=== PATIENT | male | born 1945 | race Caucasian/White ===

== ENCOUNTER → 2016-10-26 | Outpatient (CLI) | payer MEDICARE ==
[~2016-10-26] MED LIST: ALLO300T2 PO; AMIO200T2 PO; COD1CAPS6 PO; DICL100G18 TP; DLT180CCR; DOXA4TAB2 PO; DOXA8TAB2 PO; FLUT16SP22 NS; FLUTICASONE; INSU100I10 SC; INSU100I23; INSU100V16 SQ; INSU100V6 SQ; LEVO5TAB12 PO; LISI10TA2 PO; LORA10TA7 PO; NF-SOLIF5T PO; OMEG1CAP24 PO; RIVA20TA PO; TEST200V21 INJ; TRZ50T; WRF10T; WRF1T; ZOLP10TA5 PO; [UNRECOGNIZED DRUG - OTHER] PO; [UNRECOGNIZED DRUG - SUPPLY]
--- OUTSIDE RECORDS SUMMARY | 2016-10-26 10:57 | XMS REPORT | Continuity of Care Document ---
Author Author [facility] Organization [facility] Address Unknown Phone Unavailable Care Team Providers Care Redye Hand Name Role Phone MAURICE SCHROEDER DO PCP Insurance Providers Payer Name Policy Number Subscriber Name Relationship Wps Medicare [id number] Maurice Roberts Ii 18 Self / Same As Patient [employer] [facility] Supp [id number] Maurice Roberts Ii 18 Self / Same As Patient Advance Directives Directive Response Recorded Date/Time Advance Directives Yes 07/26/16 12:42pm Health Care Power of Quality Control Coordinator Yes 07/26/16 12:42pm Organ Donor Yes 07/26/16 12:42pm Resuscitation Status Full Code 07/26/16 12:42pm Chief Complaint and Reason for Visit Chief Complaint AFIB Reason for Visit Intermittent atrial fibrillation Problems Active Problems Medical Problem Onset Date Status Intermittent atrial fibrillation Unknown Acute Medications Current Home Medications Medication Dose Units Route Directions Days/Qty Instructions Start Date Lisinopril 10 Mg 10 Mg Oral Daily 12/16/15 Solifenacin Succinate 5 Mg 5 Mg Oral Daily 12/16/15 Zolpidem Tartrate 10 Mg 10 Mg Oral Bedtime 12/16/15 Allopurinol 300 Mg 300 Mg Oral Daily 12/16/15 Levocetirizine Dihydrochloride 5 Mg 5 Mg Oral Daily 07/26/16 Doxazosin Mesylate 8 Mg 8 Mg Oral Bedtime 07/26/16 Insulin Glargine,Hum.rec.anlog 100 Unit/1 Ml 20 Units Subcutaneously Twice A Day 07/26/16 Amiodarone Hcl 200 Mg 200 Mg Oral Twice A Day as needed for Afib 06/02 Diclofenac Sodium 100 Gm Topical Twice A Day as needed for Pain 07/26/16 Rivaroxaban 20 Mg 20 Mg Oral Daily 07/26/16 Insulin Lispro 100 Unit/1 Ml Sliding/Scale as needed for Blood Sugar 07/26/16 [E-Poise] 1 Tab Oral Daily 07/26/16 Cod Liver Oil 1 Each 1 Cap Oral Twice A Day 07/26/16 Fluticasone Propionate 16 Gm 1 [place] Nasal Twice A Day as needed for Congestion 07/26/16 Testosterone Cypionate 200 Mg/1 Ml 1 Ml Injection Every 2 Weeks 06/02 Past Home Medications Medication Directions Ordered Status Warfarin Sodium 10 Mg Tablet, 06/22/08 Discontinued Warfarin Sodium 1 Mg Tablet, 06/22/08 Discontinued Diltiazem Hcl 180 Mg Cap, 06/22/08 Discontinued Trazodone Hcl 50 Mg Tab, 06/22/08 Discontinued Loratadine 10 Mg Tablet, 10 Mg Oral 12/16/15 Discontinued Doxazosin Mesylate 4 Mg Tablet, 4 Mg Oral 12/16/15 Discontinued Insulin Aspart 100 Unit/1 Ml Susp, 1000 Unit Sub-Q 12/16/15 Discontinued Insulin Glargine,Hum.rec.anlog 100 Unit/1 Ml Vial, 100 Unit Sub-Q 12/16/15 Discontinued [Fluticasore] , 12/16/15 Discontinued [place]-3 Fatty Acids/Fish Oil 1 Each Capsule., 1 Each Oral 12/16/15 Discontinued [E-Poise] , 12/16/15 Discontinued Social History Social History Problem Response Recorded Date/Time Alcohol Use Denies Use 12/16/2015 6:38am Recreational Drug Use No 12/16/2015 6:38am Recent Foreign Travel No 07/26/2016 12:47pm Recent Infectious Disease Exposure No 07/26/2016 12:47pm Sexually Transmitted Disease No 07/26/2016 12:44pm Smoking Status Never a Smoker 07/26/2016 12:47pm Recent Hopitalizations No 07/26/2016 12:44pm Sexually Transmitted Disease No 07/26/2016 12:44pm Hx Sexually Transmitted Disorders No 06/22/2008 2:00pm Query Response Start Date Stop Date Smoking Status Never a Smoker Hospital Discharge Instructions No hospital discharge instructions. Plan of Care Discharge Date 07/27/16 10:30am Disposition 01 HOME, SELF-CARE Instructions/Education Provided Atrial Fibrillation (DC) Prescriptions See Medication Section Functional Status Query Response Date Recorded Patient Orientation Person Place Time Situation July 27, 2016 11:09am Comprehension Ability Understands Concepts July 27, 2016 10:30am Allergies, Adverse Reactions, Alerts No known allergies. Immunizations Name Given Type FLU TRIvalent 5 years - Adult 07/26/16 Administered Vital Signs Acute Vital Signs Vital Response Date/Time Temperature (Fahrenheit) 95.0 degrees F (97.6 - 99.5) 07/27/2016 8:00am Temperature (Calculated Celsius) 35.81372 degrees C (36.4 - 37.5) 07/27/2016 8:00am Temperature Source Tympanic 07/27/2016 8:00am Pulse Rate (adult) 50 bpm (60 - 90) 07/27/2016 10:00am Respiratory Rate 20 bpm (12 - 24) 07/27/2016 10:00am O2 Sat by Pulse Oximetry 95 % (88 - 100) 07/27/2016 10:00am Blood Pressure 106/51 mm Hg 07/27/2016 10:00am Blood Pressure Mean 69 mm Hg 07/27/2016 10:00am Pain Numeric Pain Scale 0-No Pain 07/27/2016 10:00am Height (Feet) 5 feet 07/26/2016 12:46pm Height (Inches) 10.00 inches 07/26/2016 12:46pm Height (Calculated Centimeters) 177.234769 cm 07/26/2016 12:46pm Weight (Pounds) 230 pounds 07/27/2016 6:00am Weight (Ounces) 0.0 oz 07/26/2016 12:46pm Weight (Calculated Grams) 325221.246 gm 07/27/2016 6:00am Weight (Calculated Kilograms) 104.422393 kilograms 07/27/2016 6:00am Calculated BMI 33.0 07/26/2016 12:46pm Results Laboratory Results Test Name Result Units Flags Reference Collection Date/Time Result Date/ Time Comments White Blood Count 5.9 10^3/uL 4.3-11.0 07/26/2016 12:56pm 07/26/2016 1: 08pm Red Blood Count 4.52 10^6/uL 4.35-5.85 07/26/2016 12:56pm 07/26/2016 1: 08pm Hemoglobin 15.3 G/DL 13.3-17.7 07/26/2016 12:56pm 07/26/2016 1:08pm Hematocrit 43 % 40-54 07/26/2016 12:56pm 07/26/2016 1:08pm Mean Corpuscular Volume 96 FL 80-99 07/26/2016 12:56pm 07/26/2016 1: 08pm Mean Corpuscular Hemoglobin 34 PG 25-34 07/26/2016 12:56pm 07/26/2016 1 :08pm Mean Corpuscular Hemoglobin Concent 35 G/DL 32-36 07/26/2016 12:56pm 1:08pm Red Cell Distribution Width 14.4 % 10.0-14.5 07/26/2016 12:56pm 2015 1:08pm Platelet Count 102 10^3/uL L 130-400 07/26/2016 12:56pm 07/26/2016 1: 08pm Mean Platelet Volume 10.6 FL H 7.4-10.4 07/26/2016 12:56pm 07/26/2016 1: 08pm Prothrombin Time 23.1 SEC H 12.2-14.7 07/26/2016 12:56pm 07/26/2016 1: 22pm INR Comment 2.1 H 0.8-1.4 07/26/2016 12:56pm 07/26/2016 1:22pm INTERPRETIVE DATA SUGGESTED THERAPEUTIC RANGE FOR INR'S: VENOUS THROMBOSIS, PULMONARY EMBOLISM, OR PREVENTION OF SYSTEMIC EMBOLISM (EG. IN ATRIAL FIBRILLATION): 2.0 - 3.0 MECHANICAL PROSTHETIC HEART VALVES: 2.5 - 3.5* *NOTE: INR'S UP TO 4.5 MAY BE NECESSARY IN SELECTED GROUPS OF HIGH RISK PATIENTS. [employer] CONSENSUS CONFERENCE ON ANTITHROMBOTIC THERAPY (2000). Activated Partial Thromboplast Time 40 SEC H 24-35 07/26/2016 12:56pm 05/2016 1:22pm Sodium Level 140 MMOL/L 135-145 07/26/2016 12:56pm 07/26/2016 1:32pm Potassium Level 4.1 MMOL/L 3.6-5.0 07/26/2016 12:56pm 07/26/2016 1: 32pm Chloride Level 109 MMOL/L H 98-107 07/26/2016 12:56pm 07/26/2016 1:32pm Carbon Dioxide Level 25 MMOL/L 21-32 07/26/2016 12:56pm 07/26/2016 1: 32pm Anion Gap 6 MMOL/L 5-14 07/26/2016 12:56pm 07/26/2016 1:32pm Blood Urea Nitrogen 21 MG/DL H 7-18 07/26/2016 12:56pm 07/26/2016 1:32pm Creatinine 1.16 MG/DL 0.60-1.30 07/26/2016 12:56pm 07/26/2016 1:32pm BUN/Creatinine Ratio 18 07/26/2016 12:56pm 07/26/2016 1:32pm Estimat Glomerular Filtration Rate > 60 07/26/2016 12:56pm 2015 1:32pm GFR INTERPRETIVE DATA UNITS FOR ESTIMATED GFR (eGFR): mL/min/1.73 M2 REFERENCE RANGE FOR ESTIMATED GFR (eGFR) eGFR NORMAL eGFR >60 MODERATELY DECREASED eGFR 30-59 SEVERLY DECREASED eGFR 15-29 KIDNEY FAILURE <15 (OR DIALYSIS) Glucose Level 110 MG/DL H 70-105 07/26/2016 12:56pm 07/26/2016 1:32pm Glucometer 108 MG/DL 70-110 07/27/2016 6:41am 07/27/2016 6:52am Calcium Level 8.6 MG/DL 8.5-10.1 07/26/2016 12:56pm 07/26/2016 1:32pm Total Bilirubin 0.5 MG/DL 0.1-1.0 07/26/2016 12:56pm 07/26/2016 1:32pm Alkaline Phosphatase 72 U/L 40-136 07/26/2016 12:56pm 07/26/2016 1: 32pm Aspartate Amino Transf (AST/SGOT) 19 U/L 5-34 07/26/2016 12:56pm 2015 1:32pm Alanine Aminotransferase (ALT/SGPT) 26 U/L 0-55 07/26/2016 12:56pm 05/2016 1:32pm Total Protein 6.2 G/DL L 6.4-8.2 07/26/2016 12:56pm 07/26/2016 1:32pm Albumin 3.7 G/DL 3.2-4.5 07/26/2016 12:56pm 07/26/2016 1:32pm Procedures Procedure Status Date Provider(s) Tracing only of electrocardiogram Active 07/27/16 GALLO BEST MD Encounters Encounter Location Arrival/Admit Date Discharge/Depart Date Attending Provider Discharged Inpatient [facility] 07/26/16 11:48am 10:30am GALLO BEST MD Recent Diagnosis Intermittent atrial fibrillation
--- NOTE | 2016-10-26 15:00 | Diagnostic Imaging Report ---
INDICATION: Coughing and wheezing. COMPARISON: Exam compared to 08/14/2008. FINDINGS: Heart size is stable. No overt vascular congestion. There is some thickening of the central airways and perihilar bronchial cuffing, which can be seen in reactive airway disease. No alveolar consolidation or gabe pneumonia, however. IMPRESSION: Perihilar airway thickening compatible with reactive airway disease, but no alveolar consolidation, effusion, or pneumothorax. Dictated by: Dictated on workstation # [id number]
== END ==
LOC: RAD 10:52
PROVIDERS: ATTEND Internal Medicine
DX: J18.9 Pneumonia, unspecified organism (principal)
CPT/HCPCS: 71020

== ENCOUNTER → 2017-03-23 | Day surgery (SDC) | payer MEDICARE ==
[2017-03-23] VITALS (7 sets, daily range): BP systolic 113–147; BP diastolic 63–90
[~2017-03-23] VITALS: Ht 177.8 cm; Wt 104.3 kg
[~2017-03-23] MED LIST changes: +AMLO10TA4 PO; +FEXO180T84 PO; +FURO-125 PO; +LIDOCAINE 2% VISCOUS 15 ML UDC ONE; +LOSA1TAB23 PO; +MIDAZOLAM 5 MG/5 ML (VERSED) VIAL ONE; +NS IV 1000 ML 1,000 ML IV SCH; +NS IV 1000 ML 1,000 ML ONE; +POTA10TA10 PO; +proPOfol 200 MG/20 ML (DIPRIVAN) VIAL IV ONE
[2017-03-23 09:02] LABS: MEAN PLATELET VOLUME 11.2 FL (7.4-10.4); RED BLOOD COUNT 4.92 10^6/uL (4.35-5.85); RED CELL DISTRIBUTION WIDTH 14.4 % (10.0-14.5); WHITE BLOOD COUNT 5.5 10^3/uL (4.3-11.0)
[2017-03-23 09:14] LABS: INR 1.4 (0.8-1.4); PROTHROMBIN TIME PATIENT 16.4 SEC (12.2-14.7)
--- NOTE | 2017-03-23 09:15 | Diagnostic Imaging Report ---
INDICATION: Atrial fibrillation and hypertension Frontal chest obtained at 9:03 AM and compared to 10/26/16. Heart is borderline in size. There is mild central vascular prominence. There is no acute infiltrate or pneumothorax or pleural fluid. IMPRESSION: Borderline heart size with mild central vascular prominence. No acute change compared with 10/26/16. Dictated by: Dictated on workstation # [id number]
[2017-03-23 09:24] LABS: ALBUMIN 3.7 GM/DL (3.2-4.5); BILIRUBIN,TOTAL 0.9 MG/DL (0.1-1.0); CALCIUM 9.3 MG/DL (8.5-10.1); CREATININE SERUM 1.2 MG/DL (0.60-1.30); TOTAL PROTEIN 6.8 GM/DL (6.4-8.2)
--- NOTE | 2017-03-23 09:26 | Cardiac Procedure Note-CS/ASA ---
Pre-Procedure Note Pre-Op Procedure Note H&P Reviewed The H&P was reviewed, patient examined and no changes noted. Date H&P Reviewed: Mar 23, 2017 Time H&P Reviewed: : Conscious Sedation Pre-Proced Time Reviewed: ASA Class: 3 Airway Mallampati Classification: ([place] appropriate class) I. II. III, IV Lungs Heart ASA score ASA 1: a normal healthy patient ASA 2: a patient with a mild systemic disease (mid diabetes, controlled hypertension, obesity x ASA 3: a patient with a severe systemic disease that limits activity (angina , COPD, prior Myocardial infarction) ASA 4: a patient with an incapacitating disease that is a constant threat to life (CHF, renal failure) ASA 5: a moribund patient not expected to survive 24 hrs. (ruptured aneurysm) ASA 6: a declared brain patient whose organs are being harvested. For emergent operations, add the letter E after the classification Grade 3 Sedation Plan: Analgesia, Amnesia, Plan communicated to team members, Discussed options with patient/fam, Discussed risks with patient/fam Note The patient is an appropriate candidate to undergo the planned procedure, sedation, and anesthesia. The patient immediately re-assessed prior to indication. GALLO BEST MD Mar 23, 2017 09:26
--- NOTE | 2017-03-23 10:15 | Cardiology Post Procedure Note ---
Post-Procedure Note Physician (s)/Director Regulatory Compliance (s) Physician GALLO BEST MD Pre-Procedure Diagnosis Pre-Procedure Diagnosis: a fib Post-Procedure Note Procedure Start Date: Mar 23, 2017 Procedure Start Time: 10:00 Name of Procedure: Electrical cardioversion Findings/Procedure Note BRIEF HISTORY: The patient is a 71 male with paroxysmal A fib/ flutter, started having atrial flutter 2 days ago, didn't respond to increasing Amiodarone, I decided to proceed with cardioversion . PROCEDURE NOTE: After explaining the procedure to the patient, all pros and cons were explained. The patient was sedated with assistance of anesthesia, DC cardioversion was delivered with success. IN CONCLUSION: Successful electrical cardioversion without complications. Anesthesia Type: Conscious Sedation Estimated blood loss (mL): 0 Contrast Amount: 0 Post-Procedure Diagnosis Post-operative diagnosis: Atrial fibrillation/ Flutter GALLO BEST MD Mar 23, 2017 10:15 am
--- NOTE | 2017-03-23 10:16 | Clinic Account Progress/Dx ---
Clinic Account Progress/Dx DIAGNOSIS: Date Seen by Provider: Mar 23, 2017 Time Seen by Provider: 10:15 Diagnosis Atrial Flutter GALLO BEST MD Mar 23, 2017 10:16 am
--- NOTE | 2017-03-23 10:56 | Anesthesia-Procedure Note ---
Procedure Start/Stop Time Date of Procedure: Mar 23, 2017 Start Time: 09:52 Brief History 03/23/2017 [id number]: To [employer] to assist with sedation for cardioversion. Patient denies allergies to meds. O2 4L/NC. Propofol 80mg total given prior to procedure. Tolerated well. Reported off to Vonnie Stevens RN. Stop Time: 10:04 USMAN MCCORMICK CRNA Mar 23, 2017 10:55
--- OUTSIDE RECORDS SUMMARY | 2017-03-27 06:44 | XMS REPORT | Continuity of Care Document ---
Author Author [facility] Organization [facility] Address Unknown Phone Unavailable Care Team Providers Care [employer] Name Role Phone Unverified, Unverified PCP Unavailable Source Comments Some departments are not documenting in the electronic medical record. If you do not see the information that you expected, contact Release of Information in the Health Information Management department at [phone] for further assistance in locating additional records.[facility] Active Allergies and Adverse Reactions Allergen Noted Date Severity Reactions Comments Metoprolol 02/29/2008 Current Medications Prescription Sig. Disp. Refills Start End Date Status Date COUMADIN PO Take by mouth. Suspended FISH OIL 1,000 mg Cap Take by mouth Daily. Suspended flecainide (TAMBOCOR) 100 Take 1 Tab by mouth Twice 60 0 02/29/20 Suspended mg tablet Daily. 08 Active Problems Problem Noted Date AF (atrial fibrillation) ([facility]) 02/28/2008 Diabetes ([facility]) 02/28/2008 Social History Tobacco Use Types Packs/Day Years Used Date Never Smoker Alcohol Use Drinks/Week oz/Week Comments No Last Filed Vital Signs Vital Sign Reading Time Taken Blood Pressure 86/53 02/29/2008 8:47 AM CDT Pulse 71 02/29/2008 7:00 AM CDT Temperature 37 C (98.6 F) 02/29/2008 4:00 AM CDT Respiratory Rate - - Height - - Weight - - Body Mass Index - - Oxygen Saturation 98% 02/29/2008 7:00 AM CDT Plan of Care Health Maintenance Due Date Last Done Comments Physical (Comprehensive) 1951 Exam Pertussis Vaccine 1955 Tetanus Vaccine 1961 Dilated Eye Exam 1962 Foot Exam 1962 Hba1c 1962 Microalbumin 1962 Colorectal Cancer 1994 Screening Shingles Vaccine 2004 Prevnar/Pneumovax (#1) 2009 Influenza Vaccine 05/18/2017 Results from Last 3 Months Not on file
--- OUTSIDE RECORDS SUMMARY | 2017-03-27 06:44 | XMS REPORT | Referral Summary ---
Author Author [facility] Organization [facility] Address Unknown Phone Unavailable Encounter [facility] [id number] Date(s): 02/16/15 - 02/16/15 [facility] [address] [place], [place] [address] Discharge Disposition: 01-Home or Self Care Attending Physician: Nick Apodaca MD Admitting Physician: Nick Apodaca MD Vital Signs No data available for this section Problem List No data available for this section Allergies, Adverse Reactions, Alerts No data available for this section Medications No data available for this section Results No data available for this section Immunizations No data available for this section Procedures No data available for this section Social History No data available for this section Assessment and Plan No data available for this section
--- OUTSIDE RECORDS SUMMARY | 2017-03-27 06:44 | XMS REPORT | Continuity of Care Document ---
Demographics Preferred Language Unknown Marital Status Unknown Worship Affiliation Unknown Race Unknown Ethnic Group Unknown Author Author [facility] Organization [facility] & Address Unknown Phone Unavailable Allergies Active Description Code Type Severity Reaction Onset Reported/Identified Relationship to Patient Clinical Status Yes No Known Drug Allergies [id number] Drug Allergy Unknown N/ A 12/24/2007 Medications Problems Date Dx Coded Attending Type Code Diagnosis Diagnosed By 06/12/2009 Ot 427.31 06/12/2009 Ot V72.81 06/12/2009 Ot V72.83 06/12/2009 Ot V74.8 2014 Ot 427.31 2014 Ot 785.0 2014 Ot 427.31 2014 Ot 785.1 09/16/2014 GALLO BEST MD Ot 250.00 09/16/2014 GALLO BEST MD Ot 397.0 09/16/2014 GALLO BEST MD Ot 416.8 09/16/2014 GALLO BEST MD Ot 427.31 09/16/2014 GALLO BEST MD Ot 427.32 09/16/2014 GALLO BEST MD Ot 785.1 09/16/2014 GALLO BEST MD Ot V58.67 09/16/2014 GALLO BEST MD Ot V58.69 01/19/2015 GALLO BEST MD Ot 426.52 01/19/2015 GALLO BEST MD Ot 427.31 01/19/2015 GALLO BEST MD Ot 785.1 02/05/2015 GALLO BEST MD Ot 426.52 02/05/2015 GALLO BEST MD Ot 427.31 02/05/2015 GALLO BEST MD Ot 785.1 02/25/2015 GALLO BEST MD Ot 278.00 02/25/2015 GALLO BEST MD Ot 397.0 02/25/2015 GALLO BEST MD Ot 426.82 02/25/2015 GALLO BEST MD Ot 427.31 02/25/2015 GALLO BEST MD J Ot 785.1 02/25/2015 ESTEPHANIA QUEZADA, GALLO Adair Ot V58.67 02/25/2015 ESTEPHANIA QUEZADA, GALLO Adair Ot V58.69 02/25/2015 ESTEPHANIA QUEZADA, GALLO Adair Ot V64.3 02/25/2015 ESTEPHANIA QUEZADA, GALLO Adair Ot V85.32 03/09/2015 ESTEPHANIA QUEZADA, GALLO Adair Ot 278.00 03/09/2015 ESTEPHANIA QUEZADA, GALLO Adair Ot 397.0 03/09/2015 ESTEPHANIA QUEZADA, GALLO Adair Ot 426.82 03/09/2015 ESTEPHANIA QUEZADA, GALLO Adair Ot 427.31 03/09/2015 ESTEPHANIA QUEZADA, GALLO Adair Ot 785.1 03/09/2015 ESTEPHANIA QUEZADA, GALLO Adair Ot V58.67 03/09/2015 ESTEPHANIA QUEZADA, GALLO Adair Ot V58.69 03/09/2015 ESTEPHANIA QUEZADA, GALLO Adair Ot V64.3 03/09/2015 ESTEPHANIA QUEZADA, GALLO Adair Ot V85.32 03/09/2015 ESTEPHANIA QUEZADA, GALLO Adair Ot 278.00 03/09/2015 ESTEPHANIA QUEZADA, GALLO Adair Ot 397.0 03/09/2015 ESTEPHANIA QUEZADA, GALLO Adair Ot 426.82 03/09/2015 ESTEPHANIA QUEZADA, GALLO Adair Ot 427.31 03/09/2015 ESTEPHANIA QUEZADA, GALLO Adair Ot 785.1 03/09/2015 ESTEPHANIA QUEZADA, GALLO Adair Ot V58.67 03/09/2015 ESTEPHANIA QUEZADA, GALLO Adair Ot V58.69 03/09/2015 ESTEPHANIA QUEZADA, GALLO Adair Ot V64.3 03/09/2015 ESTEPHANIA QUEZADA, GALLO Adair Ot V85.32 05/18/2015 MAURICE SCHROEDER DO Ot 721.0 05/18/2015 MAURICE SCHROEDER DO Ot 721.2 05/18/2015 MAURICE SCHROEDER DO Ot V45.4 05/27/2015 MAURICE SCHROEDER DO Ot 721.0 05/27/2015 MAURICE SCHROEDER DO Ot 721.2 05/27/2015 MAURICE SCHROEDER DO Ot V45.4 06/23/2015 GALLO BEST MD Ot 426.82 06/23/2015 GALLO BEST MD Ot 427.31 06/23/2015 GALLO BEST MD Ot 785.1 07/05/2015 GALLO BEST MD Ot 426.82 07/05/2015 GALLO BEST MD Ot 427.31 07/05/2015 GALLO BEST MD Ot 785.1 12/16/2015 ANTHONY SALVADOR MD Ot E11.9 TYPE 2 DIABETES MELLITUS WITHOUT COMPLIC 12/16/2015 ANTHONY SALVADOR MD Ot I48.91 UNSPECIFIED ATRIAL FIBRILLATION 12/16/2015 ANTHONY SALVADOR MD Ot Z79.4 BUSINESS ANALYSIS CONSULTANT (CURRENT) USE OF INSULIN 07/26/2016 GALLO BEST MD Ot 250.00 DIAB AYLA WO COMPL, TYPE II OR UNSPEC TY 07/26/2016 GALLO BEST MD Ot 397.0 TRICUSPID VALVE DISEASE 07/26/2016 GALLO BEST MD Ot 416.8 [facility] PULMON HEART DIS NEC 07/26/2016 GALLO BEST MD Ot 427.31 ATRIAL FIBRILLATION 07/26/2016 GALLO BEST MD Ot 427.32 ATRIAL FLUTTER 07/26/2016 GALLO BEST MD Ot 785.1 PALPITATIONS 07/26/2016 GALLO BEST MD Ot V58.67 LONG-TERM (CURRENT) USE OF INSULIN 07/26/2016 GALLO BEST MD Ot V58.69 OTH MED,LT,CURRENT USE 07/26/2016 GALLO BEST MD Ot 426.52 RT BBB/LFT ANT FASC BLK 07/26/2016 GALLO BEST MD Ot 427.31 ATRIAL FIBRILLATION 07/26/2016 GALLO BEST MD Ot 785.1 PALPITATIONS 07/26/2016 GALLO BEST MD Ot 278.00 OBESITY, NOS 07/26/2016 GALLO BEST MD Ot 397.0 TRICUSPID VALVE DISEASE 07/26/2016 GALLO BEST MD Ot 426.82 LONG QT SYNDROME 07/26/2016 GALLO BEST MD Ot 427.31 ATRIAL FIBRILLATION 07/26/2016 GALLO BEST MD Ot 785.1 PALPITATIONS 07/26/2016 GALLO BEST MD Ot V58.67 LONG-TERM (CURRENT) USE OF INSULIN 07/26/2016 GALLO BEST MD Ot V58.69 OTH MED,LT,CURRENT USE 07/26/2016 GALLO BEST MD Ot V64.3 NO PROC FOR REASONS NEC 07/26/2016 GALLO BEST MD Ot V85.32 BODY MASS INDEX 32.0-32.9, ADULT 07/26/2016 MAURICE SCHROEDER DO Ot 721.0 CERVICAL SPONDYLOSIS 07/26/2016 MAURICE SCHROEDER DO Ot 721.2 THORACIC SPONDYLOSIS 07/26/2016 MAURICE SCHROEDER DO Ot V45.4 ARTHRODESIS STATUS 07/26/2016 GALLO BEST MD Ot 426.82 LONG QT SYNDROME 07/26/2016 GALLO BEST MD Ot 427.31 ATRIAL FIBRILLATION 07/26/2016 GALLO BEST MD Ot 785.1 PALPITATIONS 07/27/2016 GALLO BEST MD Ot E11.9 TYPE 2 DIABETES MELLITUS WITHOUT COMPLIC 07/27/2016 GALLO BEST MD Ot E66.9 OBESITY, UNSPECIFIED 07/27/2016 GALLO BEST MD Ot E78.5 HYPERLIPIDEMIA, UNSPECIFIED 07/27/2016 GALLO BEST MD Ot I10 ESSENTIAL (PRIMARY) HYPERTENSION 07/27/2016 GALLO BEST MD Ot I48.0 PAROXYSMAL ATRIAL FIBRILLATION 07/27/2016 GALLO BEST MD Ot Z68.33 BODY MASS INDEX (BMI) 33.0-33.9, ADULT 07/27/2016 GALLO BEST MD Ot Z79.01 SENIOR LIVING (CURRENT) USE OF ANTICOAGULANT 07/27/2016 GALLO BEST MD Ot Z79.899 OTHER BUSINESS ANALYSIS CONSULTANT (CURRENT) DRUG THERAPY 08/31/2016 GALLO BEST MD Ot E11.9 TYPE 2 DIABETES MELLITUS WITHOUT COMPLIC 08/31/2016 GALLO BEST MD Ot E66.9 OBESITY, UNSPECIFIED 08/31/2016 GALLO BEST MD Ot E78.5 HYPERLIPIDEMIA, UNSPECIFIED 08/31/2016 GALLO BEST MD Ot I10 ESSENTIAL (PRIMARY) HYPERTENSION 08/31/2016 GALLO BEST MD Ot I48.0 PAROXYSMAL ATRIAL FIBRILLATION 08/31/2016 GALLO BEST MD Ot Z68.33 BODY MASS INDEX (BMI) 33.0-33.9, ADULT 08/31/2016 GALLO BEST MD Ot Z79.01 SENIOR LIVING (CURRENT) USE OF ANTICOAGULANT 08/31/2016 GALLO BEST MD Ot Z79.899 OTHER SENIOR LIVING (CURRENT) DRUG THERAPY 09/02/2016 GALLO BEST MD Ot E11.9 TYPE 2 DIABETES MELLITUS WITHOUT COMPLIC 09/02/2016 GALLO BEST MD Ot E66.9 OBESITY, UNSPECIFIED 09/02/2016 GALLO BEST MD Ot E78.5 HYPERLIPIDEMIA, UNSPECIFIED 09/02/2016 GALLO BEST MD Ot I10 ESSENTIAL (PRIMARY) HYPERTENSION 09/02/2016 GALLO BEST MD Ot I48.0 PAROXYSMAL ATRIAL FIBRILLATION 09/02/2016 GALLO BEST MD Ot Z68.33 BODY MASS INDEX (BMI) 33.0-33.9, ADULT 09/02/2016 GALLO BEST MD Ot Z79.01 BUSINESS ANALYSIS CONSULTANT (CURRENT) USE OF ANTICOAGULANT 09/02/2016 GALLO BEST MD Ot Z79.899 OTHER SENIOR LIVING (CURRENT) DRUG THERAPY 10/31/2016 MAURICE SCHROEDER DO, Ot J18.9 PNEUMONIA, UNSPECIFIED ORGANISM 11/20/2016 MAURICE SCHROEDER DO, Ot J18.9 PNEUMONIA, UNSPECIFIED ORGANISM 11/22/2016 MAURICE SCHROEDER DO, Ot J18.9 PNEUMONIA, UNSPECIFIED ORGANISM Procedures Results Test Result Range GLUCOSE (POC) - 12/16/15 18:15 GLUCOSE (POC) 126 mg/dL 70-99 Methicillin resistant Staphylococcus aureus (MRSA) screening culture - 12:18 Methicillin resistant Staphylococcus aureus (MRSA) screening culture NEG NRG Automated blood complete blood count (hemogram) panel - 07/26/16 12:56 Blood leukocytes automated count (number/volume) 5.9 10*3/ uL 4.3-11.0 Blood erythrocytes automated count (number/volume) 4.52 10*6 /uL 4.35-5.85 Venous blood hemoglobin measurement (mass/volume) 15.3 g/dL 13.3-17.7 Blood hematocrit (volume fraction) 43 % 40-54 Automated erythrocyte mean corpuscular volume 96 [foz_us] 80-99 Automated erythrocyte mean corpuscular hemoglobin (mass per erythrocyte) 34 pg 25-34 Automated erythrocyte mean corpuscular hemoglobin concentration measurement ( mass/volume) 35 g/dL 32-36 Automated erythrocyte distribution width ratio 14.4 % 10.0-14.5 Automated blood platelet count (count/volume) 102 10*3/uL 130-400 Automated blood platelet mean volume measurement 10.6 [foz_ us] 7.4-10.4 PT panel in platelet poor plasma by coagulation assay - 07/26/16 12:56 Prothrombin time (PT) in platelet poor plasma by coagulation assay 23.1 s 12.2-14.7 INR in platelet poor plasma or blood by coagulation assay 2.1 0.8-1.4 Activated partial thromboplastin time (aPTT) in platelet poor plasma bycoagulation assay - 07/26/16 12:56 Activated partial thromboplastin time (aPTT) in platelet poor plasma bycoagulation assay 40 s 24-35 Comprehensive metabolic panel - 07/26/16 12:56 Serum or plasma sodium measurement (moles/volume) 140 mmol/ L 135-145 Serum or plasma potassium measurement (moles/volume) 4.1 mmol/L 3.6-5.0 Serum or plasma chloride measurement (moles/volume) 109 mmol /L 98-107 Carbon dioxide 25 mmol/L 21-32 Serum or plasma anion gap determination (moles/volume) 6 mmol/L 5-14 Serum or plasma urea nitrogen measurement (mass/volume) 21 mg/dL 7-18 Serum or plasma creatinine measurement (mass/volume) 1.16 mg /dL 0.60-1.30 Serum or plasma urea nitrogen/creatinine mass ratio 18 NRG Serum or plasma creatinine measurement with calculation of estimated glomerular filtration rate > NRG Serum or plasma glucose measurement (mass/volume) 110 mg/dL 70-105 Serum or plasma calcium measurement (mass/volume) 8.6 mg/dL 8.5-10.1 Serum or plasma total bilirubin measurement (mass/volume) 0.5 mg/dL 0.1-1.0 Serum or plasma alkaline phosphatase measurement (enzymatic activity/volume) 72 U/L 40-136 Serum or plasma aspartate aminotransferase measurement (enzymatic activity/ volume) 19 U/L 5-34 Serum or plasma alanine aminotransferase measurement (enzymatic activity/volume ) 26 U/L 0-55 Serum or plasma protein measurement (mass/volume) 6.2 g/dL 6.4-8.2 Serum or plasma albumin measurement (mass/volume) 3.7 g/dL 3.2-4.5 Capillary blood glucose measurement by glucometer (mass/volume) - 07/26/16 14: 36 Capillary blood glucose measurement by glucometer (mass/volume) 83 mg/dL 70-110 Capillary blood glucose measurement by glucometer (mass/volume) - 07/26/16 22: 16 Capillary blood glucose measurement by glucometer (mass/volume) 174 mg/dL 70-110 Capillary blood glucose measurement by glucometer (mass/volume) - 07/26/16 23: 53 Capillary blood glucose measurement by glucometer (mass/volume) 134 mg/dL 70-110 Capillary blood glucose measurement by glucometer (mass/volume) - 07/27/16 06: 41 Capillary blood glucose measurement by glucometer (mass/volume) 108 mg/dL 70-110 Automated blood complete blood count (hemogram) panel - 03/23/17 08:52 Blood leukocytes automated count (number/volume) 5.5 10*3/ uL 4.3-11.0 Blood erythrocytes automated count (number/volume) 4.92 10*6 /uL 4.35-5.85 Venous blood hemoglobin measurement (mass/volume) 16.2 g/dL 13.3-17.7 Blood hematocrit (volume fraction) 47 % 40-54 Automated erythrocyte mean corpuscular volume 95 [foz_us] 80-99 Automated erythrocyte mean corpuscular hemoglobin (mass per erythrocyte) 33 pg 25-34 Automated erythrocyte mean corpuscular hemoglobin concentration measurement ( mass/volume) 35 g/dL 32-36 Automated erythrocyte distribution width ratio 14.4 % 10.0-14.5 Automated blood platelet count (count/volume) 92 10*3/uL 130-400 Automated blood platelet mean volume measurement 11.2 [foz_ us] 7.4-10.4 PT panel in platelet poor plasma by coagulation assay - 03/23/17 08:52 Prothrombin time (PT) in platelet poor plasma by coagulation assay 16.4 s 12.2-14.7 INR in platelet poor plasma or blood by coagulation assay 1.4 0.8-1.4 Activated partial thromboplastin time (aPTT) in platelet poor plasma bycoagulation assay - 03/23/17 08:52 Activated partial thromboplastin time (aPTT) in platelet poor plasma bycoagulation assay 35 s 24-35 Comprehensive metabolic panel - 03/23/17 08:52 Serum or plasma sodium measurement (moles/volume) 141 mmol/ L 135-145 Serum or plasma potassium measurement (moles/volume) 4.0 mmol/L 3.6-5.0 Serum or plasma chloride measurement (moles/volume) 105 mmol /L 98-107 Carbon dioxide 27 mmol/L 21-32 Serum or plasma anion gap determination (moles/volume) 9 mmol/L 5-14 Serum or plasma urea nitrogen measurement (mass/volume) 24 mg/dL 7-18 Serum or plasma creatinine measurement (mass/volume) 1.20 mg /dL 0.60-1.30 Serum or plasma urea nitrogen/creatinine mass ratio 20 NRG Serum or plasma creatinine measurement with calculation of estimated glomerular filtration rate 60 NRG Serum or plasma glucose measurement (mass/volume) 143 mg/dL 70-105 Serum or plasma calcium measurement (mass/volume) 9.3 mg/dL 8.5-10.1 Serum or plasma total bilirubin measurement (mass/volume) 0.9 mg/dL 0.1-1.0 Serum or plasma alkaline phosphatase measurement (enzymatic activity/volume) 63 U/L 40-136 Serum or plasma aspartate aminotransferase measurement (enzymatic activity/ volume) 26 U/L 5-34 Serum or plasma alanine aminotransferase measurement (enzymatic activity/volume ) 32 U/L 0-55 Serum or plasma protein measurement (mass/volume) 6.8 g/dL 6.4-8.2 Serum or plasma albumin measurement (mass/volume) 3.7 g/dL 3.2-4.5 Methicillin resistant Staphylococcus aureus (MRSA) screening culture - 08:52 Methicillin resistant Staphylococcus aureus (MRSA) screening culture NEG NRG Encounters ACCT No. Visit Date/Time Discharge Status Pt. Type Provider Facility Loc./Unit Complaint [id number] 12/16/2015 17:54:00 Document Registration
== END ==
LOC: CATH 08:24
PROVIDERS: ATTEND Internal Medicine Cardiovascular Disease
DX: I48.0 Paroxysmal atrial fibrillation (principal); I10 Essential (primary) hypertension; I45.81 Long QT syndrome; E11.9 Type 2 diabetes mellitus without complications; E66.9 Obesity, unspecified; Z68.33 Body mass index [BMI] 33.0-33.9, adult; Z79.899 Other long term (current) drug therapy; Z79.4 Long term (current) use of insulin; Z79.01 Long term (current) use of anticoagulants
CPT/HCPCS: 36415; 71010; 80053; 85027; 85610; 85730; 87081; 92960; 93005

== ENCOUNTER → 2018-05-28 | Outpatient (CLI) | payer MEDICARE ==
[~2018-05-28] MED LIST changes: -AMIO200T2 PO; +AMIO200T4 PO; -LIDOCAINE 2% VISCOUS 15 ML UDC ONE; -MIDAZOLAM 5 MG/5 ML (VERSED) VIAL ONE; -NS IV 1000 ML 1,000 ML IV SCH; -NS IV 1000 ML 1,000 ML ONE; -proPOfol 200 MG/20 ML (DIPRIVAN) VIAL IV ONE
--- NOTE | 2018-05-28 14:06 | Diagnostic Imaging Report ---
INDICATION: LVH,MR,PAF,PALPITATIONS,HTN, 1ST DEGREE AV BLOCK COMPARISON: 03/23/2017. FINDINGS: Frontal and lateral views of the chest demonstrate stable borderline enlarged cardiac silhouette. Pulmonary vasculature is within normal limits. The lungs are clear. There are no signs of infiltrate, pleural effusions or pneumothoraces. The visualized osseous structures show no acute abnormalities. Note is made of calcified aortic atherosclerosis. IMPRESSION: 1. Stable borderline prominent cardiac silhouette, but no evidence of overt failure or focal infiltrate. Dictated by: Dictated on workstation # [id number]
== END ==
LOC: RAD 12:02
PROVIDERS: ATTEND Internal Medicine Cardiovascular Disease
DX: I11.9 Hypertensive heart disease without heart failure (principal); I34.0 Nonrheumatic mitral (valve) insufficiency; I48.0 Paroxysmal atrial fibrillation; I44.0 Atrioventricular block, first degree
CPT/HCPCS: 71046

== ENCOUNTER → 2018-09-06 | Outpatient (CLI) | payer MEDICARE ==
--- NOTE | 2018-09-06 12:50 | Diagnostic Imaging Report ---
PROCEDURE: CT sinuses without contrast TECHNIQUE: Multiple contiguous axial images were obtained through the sinuses without the use of intravenous contrast. Coronal and sagittal reformations were then performed. INDICATION: Fullness in the frontal sinuses. No prior studies are available for comparison. Frontal sinuses clear. Ethmoid air cells and sphenoid sinus are clear. There is a mucous retention cyst or polyp in the inferior right maxillary sinus measuring approximately 1.6 transverse x 2.2 cm AP. No air-fluid levels are seen. Mastoids are well aerated. Ostiomeatal complexes appear patent. There is some nasal septal deviation to the left. IMPRESSION: Right maxillary sinus mucous retention cyst or polyp. There are no findings to suggest acute sinusitis. Dictated by: Dictated on workstation # [id number]
== END ==
LOC: RAD 11:55
PROVIDERS: ATTEND Internal Medicine
DX: J01.01 Acute recurrent maxillary sinusitis (principal)
CPT/HCPCS: 70486

== ENCOUNTER 2018-12-11 08:26 | Day surgery (SDC) | payer MEDICARE ==
[2018-12-11] VITALS (7 sets, daily range): BP systolic 127–172; BP diastolic 63–95
[~2018-12-11] VITALS: Ht 177.8 cm; Wt 110.7 kg
[2018-12-11] MEDS ORDERED: NS IV 1000 ML 1,000 ML ONE (08:29)
[2018-12-11] MEDS ORDERED: LIDOCAINE 2% VISCOUS 15 ML UDC ONE (08:29)
[2018-12-11] MEDS ORDERED: NS IV 1000 ML 1,000 ML IV ONE (08:30)
[2018-12-11] MEDS ORDERED: LIDOCAINE 2% VISCOUS 15 ML UDC PO ONE (08:30)
--- NOTE | 2018-12-11 09:18 | Diagnostic Imaging Report ---
Clinical indication: Patient with a flutter and hypertension. Exam: Portable chest x-ray upright view. Comparisons: Chest x-ray dated 05/28/2018 and 10/26/2016. Findings: Stable mild cardiomegaly. There is mild pulmonary vascular congestion seen bilaterally which is not significantly changed in the interim. There is no interval lung infiltrate. There is no pleural effusion or pneumothorax. Bones show no significant interval abnormality. Impression: 1: There is stable mild cardiomegaly with mild prominence of the pulmonary vasculature. 2: There is no interval lung infiltrate and the lung wooten appear stable. Dictated by: Dictated on workstation # [id number]
[2018-12-11 09:21] LABS: HEMOGLOBIN 13.6 G/DL (13.3-17.7); MEAN PLATELET VOLUME 11.3 FL (7.4-10.4); RED CELL DISTRIBUTION WIDTH 14.9 % (10.0-14.5); WHITE BLOOD COUNT 3.5 10^3/uL (4.3-11.0)
[2018-12-11] MEDS ORDERED: ENOXAPARIN 100 MG/1 ML (LOVENOX) SYR SC ONE (09:30)
[2018-12-11 09:34] LABS: INR 2.2 (0.8-1.4); PROTHROMBIN TIME PATIENT 25.5 SEC (12.2-14.7)
[2018-12-11] MEDS ORDERED: proPOfol 200 MG/20 ML (DIPRIVAN) VIAL IV ONE (09:36)
[2018-12-11] MEDS ORDERED: MIDAZOLAM 5 MG/5 ML (VERSED) VIAL ONE (09:36)
[2018-12-11 09:45] LABS: ALBUMIN 3.6 GM/DL (3.2-4.5); BILIRUBIN,TOTAL 0.6 MG/DL (0.1-1.0); CALCIUM 8.8 MG/DL (8.5-10.1); CREATININE SERUM 1.19 MG/DL (0.60-1.30); POTASSIUM 4.4 MMOL/L (3.6-5.0); TOTAL PROTEIN 6.2 GM/DL (6.4-8.2)
--- NOTE | 2018-12-11 09:45 | Cardiac Procedure Note-CS/ASA ---
Pre-Procedure Note Pre-Op Procedure Note H&P Reviewed The H&P was reviewed, patient examined and no changes noted. Date H&P Reviewed: Dec 11, 2018 Time H&P Reviewed: 09:45 Conscious Sedation Pre-Proced Time 09:45 ASA Score 3 For ASA 3 and 4: Consider anesthesia and medical clearance. Also, for patients with a history of failed moderate sedation consider anesthesia. Airway Lungs Heart ASA score ASA 1: a normal healthy patient ASA 2: a patient with a mild systemic disease (mid diabetes, controlled hypertension, obesity x ASA 3: a patient with a severe systemic disease that limits activity (angina , COPD, prior Myocardial infarction) ASA 4: a patient with an incapacitating disease that is a constant threat to life (CHF, renal failure) ASA 5: a moribund patient not expected to survive 24 hrs. (ruptured aneurysm) ASA 6: a declared brain- patient whose organs are being harvested. For emergent operations, add the letter E after the classification Mallampati Classification Grade 3 Sedation Plan Analgesia, Amnesia, Plan communicated to team members, Discussed options with patient/fam, Discussed risks with patient/fam The patient is an appropriate candidate to undergo the planned procedure, sedation, and anesthesia. The patient immediately re-assessed prior to indication. GALLO BEST MD Dec 11, 2018 09:45
[2018-12-11] MEDS ORDERED: FLU QUADRIvalent (5+ YOA) 2018-2019 (AFLURIA) 0.5 ML IM ONE (10:15)
--- NOTE | 2018-12-11 10:23 | Cardioversion ---
Cardioversion PROCEDURE PHYSICIAN: Gallo Cristina DATE OF PROCEDURE: 12/11/18 DIRECT EXTERNAL ELECTRICAL CARDIOVERSION: Indications: Atrial flutter Preoperative diagnoses: Atrial flutter Postoperative diagnosis: Sinus rhythm, Successful Electrical Cardioversion Anesthesia: By Anesthesia services Complications: None Specimen: None Contrast: 0 Flouroscopy: none Procedure Details: The patient was brought the quality lab technician after informed consent was taken, all the risks and complications were explained including the risk of stroke. Electrical cardioversion was carried out with anesthesia support with propofol. 200 joules of synchronized shock was delivered through external patches which promptly restored sinus rhythm. The patient tolerated the procedure well. Conclusions: Successful atrial flutter termination with cardioversion, back to sinus rhythm Final Diagnosis: Paroxysmal atrial flutter Palpitation Shortness of breath Hypertension GALLO CRISTINA MD Dec 11, 2018 10:22
--- NOTE | 2018-12-11 10:24 | Anesthesia-Procedure Note ---
Procedures/Interventions Procedure Start/Stop/Diagnosis Date of Procedure: Dec 11, 2018 Start Time: 10:00 Referring Physician: Ibeth Stop Time: 10:15 HUI/Cardioversion Anesthesia Type: mac ASA Class: 3 Medications Discussed sedation with patient, wishes to proceed. History obtained from nurse. Monitors on and functional. VSS. Propofol titrated to effect to a total of 100mg, and Versed 2mg IV given. Pt tolerated well. VSS upon leaving laborer electroplating. Monitors and Equipment: BP Cuff - Left, Continuous EKG, End Tidal CO2, IV, Pulse Oximeter YAJAIRA HERRING CRNA Dec 11, 2018 10:24
== END 2018-12-11 11:14 | disposition home or self-care (01) ==
LOC: CATH 08:26
PROVIDERS: ATTEND Internal Medicine Cardiovascular Disease
DX: I48.92 Unspecified atrial flutter (principal); R00.2 Palpitations; R06.02 Shortness of breath; I10 Essential (primary) hypertension
CPT/HCPCS: 36415; 71045; 80053; 85027; 85610; 85730; 92960; 93005; 93312; 93320; 93325

== ENCOUNTER → 2019-01-07 | Outpatient (CLI) | payer MEDICARE ==
[~2019-01-07] MED LIST changes: -RIVA20TA PO; +RIVA20TA2 PO
--- NOTE | 2019-01-07 13:57 | Diagnostic Imaging Report ---
INDICATION: Pain in the lateral wrist with swelling. TIME OF EXAM: 1:44 p.m. FINDINGS: Multiple views of the left wrist were obtained. There are some degenerative changes at the radiocarpal space with mild joint space narrowing present. Distal radius and ulna are intact. Carpal bones appear to be intact. Visualized metacarpals are unremarkable. No fractures are seen. IMPRESSION: Degenerative changes. No acute bony abnormality is detected. Dictated by: Dictated on workstation # [id number]
== END ==
LOC: RAD 13:32
PROVIDERS: ATTEND Internal Medicine
DX: M19.032 Primary osteoarthritis, left wrist (principal)
CPT/HCPCS: 73110

== ENCOUNTER → 2019-02-07 | Outpatient (CLI) | payer MEDICARE | LOC: RAD 14:56 | PROVIDERS: ATTEND Internal Medicine | DX: M25.532 Pain in left wrist (principal); Z53.8 Procedure and treatment not carried out for other reasons ==

== ENCOUNTER → 2019-02-07 | Outpatient (CLI) | payer MEDICARE ==
--- NOTE | 2019-02-07 15:35 | Diagnostic Imaging Report ---
INDICATION: Back pain Thoracic spine. FINDINGS: AP and lateral views of the thoracic spine show normal vertebral body height and alignment. Disc spaces are normal. There is spondylosis with bridging osteophytes at multiple levels. IMPRESSION: Spondylosis. No acute abnormality is seen. Dictated by: Dictated on workstation # [id number]
--- NOTE | 2019-02-07 17:02 | Diagnostic Imaging Report ---
INDICATION: Chronic right knee pain. AP, oblique, and lateral views of the right knee are obtained. FINDINGS: There is prominent medial joint space narrowing with osteophyte formation. There is moderate lateral joint space narrowing with osteophyte formation. There is prominent patellofemoral spurring and joint space narrowing. There is a small joint effusion. There is no acute fracture. IMPRESSION: Marked osteoarthritic changes of right knee with small joint effusion. No acute fracture. Dictated by: Dictated on workstation # [id number]
== END ==
LOC: RAD 15:03
PROVIDERS: ATTEND Internal Medicine
DX: M17.11 Unilateral primary osteoarthritis, right knee (principal); M47.814 Spondylosis without myelopathy or radiculopathy, thoracic region
CPT/HCPCS: 72070; 73562

== ENCOUNTER → 2019-07-28 | Day surgery (SDC) | payer MEDICARE ==
[~2019-07-28] MED LIST changes: +LIDOCAINE 2% VISCOUS 15 ML UDC ONE; +NS IV 1000 ML 0 ML ONE; +NS IV 1000 ML 1,000 ML IV SCH
== END | disposition home or self-care (01) ==
LOC: SDC 06:50
PROVIDERS: ATTEND Internal Medicine Cardiovascular Disease
DX: I48.92 Unspecified atrial flutter (principal); I48.0 Paroxysmal atrial fibrillation; I10 Essential (primary) hypertension; I08.1 Rheumatic disorders of both mitral and tricuspid valves; I27.20 Pulmonary hypertension, unspecified; I44.0 Atrioventricular block, first degree; I45.81 Long QT syndrome; E66.9 Obesity, unspecified; Z68.36 Body mass index [BMI] 36.0-36.9, adult; E11.9 Type 2 diabetes mellitus without complications; I65.23 Occlusion and stenosis of bilateral carotid arteries; Z79.01 Long term (current) use of anticoagulants; Z79.4 Long term (current) use of insulin; Z79.51 Long term (current) use of inhaled steroids; Z79.899 Other long term (current) drug therapy; Z85.51 Personal history of malignant neoplasm of bladder; Z82.3 Family history of stroke
CPT/HCPCS: 93005

== ENCOUNTER 2019-08-11 12:11 | Outpatient (CLI) | payer MEDICARE ==
[~2019-08-11] VITALS: Ht 177.8 cm; Wt 114.0 kg
[~2019-08-11 12:11] MED LIST changes: -INSU100I23; +INSU100I23 SC; -LIDOCAINE 2% VISCOUS 15 ML UDC ONE; -NS IV 1000 ML 0 ML ONE; -NS IV 1000 ML 1,000 ML IV SCH
[2019-08-11 12:28] VITALS: BP 131/63
[2019-08-11 13:05] LABS: BASOPHILS % (AUTO) 1 % (0-10); EOSINOPHILS # (AUTO) 0.1 10^3/uL (0.0-0.3); EOSINOPHILS % (AUTO) 3 % (0-10); HEMATOCRIT 40 % (40-54); HEMOGLOBIN 13.4 G/DL (13.3-17.7); LYMPHOCYTES # (AUTO) 1.1 X 10^3 (1.0-4.0); LYMPHOCYTES % (AUTO) 32 % (12-44); MEAN CORPUSCULAR HEMOGLOBIN 33 PG (25-34); MEAN CORPUSCULAR HGB CONC 34 G/DL (32-36); MEAN CORPUSCULAR VOLUME 98 FL (80-99); MEAN PLATELET VOLUME 10.7 FL (7.4-10.4); MONOCYTES # (AUTO) 0.5 X 10^3 (0.0-1.0); MONOCYTES % (AUTO) 14 % (0-12); NEUTROPHILS # (AUTO) 1.7 X 10^3 (1.8-7.8); NEUTROPHILS % (AUTO) 51 % (42-75); PLATELET COUNT 78 10^3/uL (130-400); RED CELL DISTRIBUTION WIDTH 13.9 % (10.0-14.5); WHITE BLOOD COUNT 3.4 10^3/uL (4.3-11.0)
--- NOTE | 2019-08-11 13:11 | Diagnostic Imaging Report ---
EXAMINATION: PA and lateral chest at 1:05 PM. INDICATION: Preoperative right total knee replacement. FINDINGS: The heart size is at the upper limits of normal and the heart does seem less prominent than noted on the prior exam of 12/11/2018. The perihilar markings are prominent but similar to the prior exam. There is no sign of failure, pneumonia, or pleural effusion to indicate an acute abnormality. The mediastinum is not widened. The osseous structures are intact. IMPRESSION: There is no evidence for an acute cardiopulmonary abnormality. Dictated by: Dictated on workstation # [id number]
[2019-08-11 13:16] LABS: INR 1.1 (0.8-1.4); PROTHROMBIN TIME PATIENT 14.5 SEC (12.2-14.7)
[2019-08-11 13:20] LABS: BILIRUBIN,URINE NEGATIVE (NEGATIVE); CLARITY,URINE CLEAR; COLOR,URINE YELLOW; GLUCOSE, URINE (UA) NEGATIVE (NEGATIVE); KETONES,URINE NEGATIVE (NEGATIVE); LEUKOCYTE ESTERASE ,URINE NEGATIVE (NEGATIVE); NITRITE,URINE NEGATIVE (NEGATIVE); PROTEIN,URINE NEGATIVE (NEGATIVE)
[2019-08-11 13:27] LABS: BACTERIA,URINE NEGATIVE /HPF; SQUAMOUS EPITHELIAL CELL,UR 0-2 /HPF
[2019-08-11 13:30] LABS: ALANINE AMINOTRANSFERASE 35 U/L (0-55); ALBUMIN 3.7 GM/DL (3.2-4.5); ALKALINE PHOSPHATASE 107 U/L (40-136); BILIRUBIN,TOTAL 0.7 MG/DL (0.1-1.0); BUN/CREATININE RATIO 21; CALCIUM 8.9 MG/DL (8.5-10.1); CARBON DIOXIDE 25 MMOL/L (21-32); CHLORIDE 105 MMOL/L (98-107); GFR ESTIMATED > 60; GLUCOSE 129 MG/DL (70-105); POTASSIUM 3.8 MMOL/L (3.6-5.0); SODIUM 139 MMOL/L (135-145); TOTAL PROTEIN 6.7 GM/DL (6.4-8.2)
[2019-08-11 13:35] LABS: ERYTHROCYTE SEDIMENTATION RATE 14 MM/HR (0-30)
[2019-08-11] MEDS ORDERED: XYLI550M MM (13:59)
[2019-08-11] MEDS ORDERED: DOXA4TAB2 PO (14:01)
[2019-08-11] MEDS ORDERED: AMIO100T4 PO (14:01)
[2019-08-11] MEDS ORDERED: TRAM50TA2 PO (14:01)
[2019-08-11] MEDS ORDERED: PREG75CA PO (14:02)
[2019-08-11] MEDS ORDERED: CHOL500049 PO (14:31)
[2019-08-11] MEDS ORDERED: AMIO200T4 PO (14:31)
[2019-08-11] MEDS ORDERED: DOXA8TAB73 PO (14:31)
== END 2019-08-11 13:15 | disposition home or self-care (01) ==
LOC: PREOP 12:11
PROVIDERS: ATTEND Orthopaedic Surgery
DX: Z01.812 Encounter for preprocedural laboratory examination (principal); Z01.810 Encounter for preprocedural cardiovascular examination; Z01.811 Encounter for preprocedural respiratory examination; M17.11 Unilateral primary osteoarthritis, right knee
CPT/HCPCS: 36415; 71046; 80053; 81000; 85025; 85610; 85652; 86850; 86900; 86901; 87081

== ENCOUNTER 2019-08-20 08:00 | Inpatient (IN) | payer MEDICARE ==
--- NOTE | 2019-08-11 14:39 | NUR ---
MARIS SENT ME A COPY OF THE PATIENTS MEDICATION LIST.I CALLED [facility] FOR A LIST OF RECENTLY FILLED MEDICATIONS AND COMPARED IT WITH THE PATIENTS LIST. I CALLED AND CLARIFIED SOME OF THE MEDS WITH THE PATIENT OVER THE PHONE. [facility] FILLED: 07-29-19 POTASSIUM 10MEQ DAILY (STATES HE TAKES IT PRN WHEN TAKING FUROSEMIDE) 07-28-19 LANTUS SOLOSTAR 60 UNITS HS (STATES HE USES BETWEEN 40-60 UNITS HS) 07-17-19 ZOLPIDEM 10MG HS 07-10-19 PROTONIX 40MG DAILY (STATES HE IS NO LONGER TAKING) 07-10-19 ALLOPURINOL 300MG DAILY 07-04-19 LOSARTAN HCTZ 100-25 DAILY #90 07-01-19 TRAMADOL 50MG 1 Q6H PRN PAIN 06-27-19 DOXAZOSIN 8MG DAILY #60 (STATES HE ONLY TAKES 1/2 TAB DAILY) 06-26-19 AMIODARONE 200MG 1/2 TAB BID (STATES HE ONLY TAKES 1/2 TAB ONCE DAILY) 06-26-19 HUMALOG KWIKPEN (TIDAC SLIDING SCALE, USES 1 UNIT FOR EVERY 10GM CARBS) 06-13-19 LYRICA 75MG BID (STATES HE USES PRN) 06-13-19 VITAMIN D3 50,000 UNITS #12 WEEKLY (STATES HE TAKES ON THURSDAYS) OCT FUROSEMIDE 20MG #90 (STATES HE TAKES PRN SWELLING) HE ALSO REPORTS HE USES VOLTAREN GEL AND FLONASE NASAL SPRAY NEEDED. HE STATES HE TAKES XARELTO WELL THAT HE GETS SAMPLES FROM THE DR. HE STATES HE IS SUPPOSED TO TAKE 20MG DAILY HOWEVER DUE TO HEMORRHOID BLEEDING HE SOMETIMES ONLY TAKES 15MG. HE HAS BOTH STRENGTH TABLETS TO ALTERNATE BETWEEN. HE STATES SOMETIMES HE WILL SKIP A DOSE IF BLEEDING IS TOO BAD BUT FOR THE MOST PART HE TAKES ONE OF THEM DAILY. HE TAKES E POISE, COD LIVER OIL, AND XYLIMELTS OTC. Addendum: 10/01/19 at 1535 by ALBAN RAND pediatric anesthesiologist I UPDATED THIS MED REC IN PREOP SEVERAL WEEKS AGO, I WENT BACK TODAY AND REVIEWED THE MEDS WITH THE PATIENT QUICKLY TO SEE IF ANY CHANGES WERE MADE SINCE SOME TIME HAS PASSED. HE HAD MOST OF HIS MAINTENANCE MED BOTTLE. HE VERIFIED HE IS STILL CUTTING HIS DOXAZOSIN IN HALF BUT HE DOES TAKE A WHOLE AMIODARONE DAILY NOW.
--- NOTE | 2019-08-12 02:12 | HISTORY AND PHYSICAL ---
DATE OF SERVICE: ADMISSION HISTORY AND PHYSICAL This will be for inpatient admission on 08/20/2019. Date of service, date of surgery and date of admission will be 08/20/2019 for right total knee arthroplasty. The patient will require regular inpatient admission due to pain management, need for physical therapy, pain with ambulation and associated comorbidities. HISTORY OF PRESENT ILLNESS: The patient is a 73-year-old gentleman with complaints of progressive worsening right knee pain. Radiographs reveal severe tricompartmental osteoarthritis. He has tried treatment with injections, anti-inflammatories and rest without relief. Due to functional impairment and failure to improve with conservative measures, the patient elected to proceed with surgical intervention. REVIEW OF SYSTEMS: No chest pain, no shortness of breath, no dysuria. PAST MEDICAL HISTORY: Sinusitis, diabetes mellitus, atrial fibrillation, ventricular hypertrophy, tricuspid regurgitation, obesity, gout, osteoarthritis, bladder cancer. PAST SURGICAL HISTORY: Coronary ablation and left total knee arthroplasty. FAMILY HISTORY: Significant for cerebrovascular accident. PRIMARY CARE PROVIDER: Dr. Duran. MEDICATIONS: 1. Losartan. 2. Allopurinol. 3. Doxazosin. 4. Zolpidem. 5. Amlodipine. 6. Lasix. 7. Potassium. 8. Lantus. 9. Humalog. 10. Xarelto. 11. Diflucan. 12. Tramadol. 13. Lyrica. ALLERGIES: No known drug allergies. SOCIAL HISTORY: The patient denies tobacco use. He drinks alcohol occasionally. PHYSICAL EXAMINATION: GENERAL: The patient is well-developed, well-nourished, in no acute distress. HEENT: Normocephalic, atraumatic. Pupils are round, reactive to light. Oropharynx is clear. NECK: Supple, no lymphadenopathy. LUNGS: Clear to auscultation bilaterally. HEART: Regular rate and rhythm. ABDOMEN: Soft, nontender, nondistended. EXTREMITIES: Right knee demonstrates varus alignment. Range of motion is 0/2/120. There is no varus valgus laxity. Negative anterior and posterior drawer. Slight effusions, it is tender along the medial femoral condyle. He has pain with patella loading. IMPRESSION: Right knee severe osteoarthritis, unresponsive to conservative measures. PLAN: Right total knee arthroplasty. The risks, benefits, options, ramifications and recovery were discussed at length with the patient. He understands and wishes to proceed. Job ID: [id number] DocumentID: [id number] Dictated Date: 08/07/2019 13:28:19 Supervisor Conditioning Yard Date: 08/07/2019 13:50:29 Dictated By: BIANCA HUBBARD MD
[~2019-08-20] VITALS: Ht 177 cm; Wt 133.0 kg
[~2019-08-20 08:00] MED LIST changes: +AMIO100T4 PO; +CHOL500049 PO; +COD1CAPS13 PO; -COD1CAPS6 PO; +DOXA8TAB73 PO; +PREG75CA PO; +TRM50T PO; +XYLI550M MM
--- NOTE | 2019-09-18 15:34 | HISTORY AND PHYSICAL ---
DATE OF SERVICE: ADMISSION HISTORY AND PHYSICAL DATE OF SURGERY: 10/01/2019. This will be for regular inpatient admission on 10/01/2019 for right total knee arthroplasty. The patient will require regular inpatient admission due to comorbidities, pain management and need for physical therapy. HISTORY: The patient is a 74-year-old gentleman with complaints of progressively worsening right knee pain. He reports pain medially as well as anteriorly. He reports activity limitations because of the knee. He has undergone injections without relief. Radiographs reveal severe tricompartmental osteoarthritis and due to functional impairment and failure to improve with conservative measures, the patient elected to proceed with surgical intervention. REVIEW OF SYSTEMS: No chest pain, no shortness of breath, no dysuria. PAST MEDICAL HISTORY: Recurrent sinusitis, diabetes, paroxysmal atrial fibrillation, left ventricular hypertrophy, left atrial dilation, mitral regurgitation, obesity, gout, osteoarthritis, bladder cancer. PAST SURGICAL HISTORY: Coronary ablation, left total knee arthroplasty. FAMILY HISTORY: Noncontributory. PRIMARY CARE PROVIDER: Dr. Duran. MEDICATIONS: Losartan, allopurinol, doxazosin, zolpidem, amlodipine, Lasix, potassium, Lantus, Humalog, Xarelto, Diflucan, Tresiba, tramadol, Lyrica. ALLERGIES: No known drug allergies. SOCIAL HISTORY: The patient drinks alcohol occasionally. Denies tobacco use. PHYSICAL EXAMINATION: GENERAL: The patient is well developed, well nourished, in no acute distress. HEENT: Normocephalic, atraumatic. Pupils are equal, round, reactive to light. Oropharynx is clear. NECK: Supple, no lymphadenopathy. LUNGS: Clear to auscultation bilaterally. HEART: Regular rate and rhythm. ABDOMEN: Soft, nontender, nondistended. EXTREMITIES: The right knee demonstrates varus alignment with range of motion 0/2/120. There is no varus valgus laxity. Negative anterior and posterior drawer. Slight effusions noted. There is no erythema or warmth. The patient ambulates with an antalgic gait. IMPRESSION: Severe right knee osteoarthritis, unresponsive to conservative measures. PLAN: Right total knee arthroplasty. The risks, benefits, options, ramifications and recovery have been discussed at length with the patient. He understands and wishes to proceed. Job ID: [id number] DocumentID: [id number] Dictated Date: 09/18/2019 14:55:17 Maple Sugar Maker Date: 09/18/2019 15:34:14 Dictated By: BIANCA HUBBARD MD
[2019-10-01] VITALS (15 sets, daily range): BP systolic 117–156; BP diastolic 53–92
[2019-10-01] MEDS ORDERED: BUPIVACAINE 0.5% 30 ML (SENSORCAINE) VIAL ONE ×2 (06:36→07:11)
[2019-10-01] MEDS ORDERED: MIDAZOLAM 2 MG/2 ML (VERSED) VIAL ONE (06:36)
[2019-10-01] MEDS ORDERED: LIDOCAINE PF 2% 5 ML (XYLOCAINE) VIAL ONE (06:41)
[2019-10-01] MEDS ORDERED: PROPOFOL INJECTION 0 ML IV ONE ×2 (06:41→09:00)
[2019-10-01] MEDS ORDERED: fentaNYL INJECTION 100 MCG/2 ML AMP ONE ×2 (06:41→07:59)
[2019-10-01] MEDS ORDERED: ONDANSETRON 4 MG/2 ML (SDV) Z0FRAN ONE (06:41)
[2019-10-01] MEDS ORDERED: SEVOFLURANE (ULTANE) 15 ML INHAL SOLN ONE ×7 (06:41→08:35)
[2019-10-01] MEDS ORDERED: LACTATED RINGERS 1,000 ML IV PRN (07:01)
[2019-10-01] MEDS ORDERED: CEFUROXIME 1.5 GM (ZINACEF) VIAL ONE (07:06)
[2019-10-01] MEDS ORDERED: WATER (STERILE) FOR INJECTION 20 ML ONE (07:06)
[2019-10-01] MEDS ORDERED: methylPREDNISolone 40 MG/ML (DEPO MEDROL) VIAL ONE (07:11)
[2019-10-01] MEDS: LACTATED RINGERS 1,000 ML IV PRN ×2 (07:12→08:02)
[2019-10-01] MEDS ORDERED: CEFUROXIME INJECTION 1,500 MG in WATER (STERILE) FOR INJECTION 15 ML IV ONE (07:15)
[2019-10-01] MEDS ORDERED: ACETAMINOPHEN 325 MG TABLET PO PRN (07:15)
[2019-10-01] MEDS ORDERED: morphine PCA 100 MG/100 ML BAG IV PRN (07:15)
--- NOTE | 2019-10-01 07:22 | Progress Note-Pre Operative ---
Pre-Operative Progress Note H&P Reviewed The H&P was reviewed, patient examined and no changes noted. Date Seen by Provider: Oct 01, 2019 Time Seen by Provider: 07:11 Date H&P Reviewed: Oct 01, 2019 Time H&P Reviewed: 07:10 Pre-Operative Diagnosis: right knee primary osteoarthritis and right plantar fasciitis BIANCA HUBBARD MD Oct 01, 2019 07:22
--- NOTE | 2019-10-01 07:24 | Progress Note-Post Operative ---
Post-Operative Progess Note Surgeon (s)/Service Architect (s) Surgeon BIANCA HUBBARD MD Service Architect: Felipe Murcia Pre-Operative Diagnosis right knee primary osteoarthritis and right plantar fasciitis Post-Operative Diagnosis right knee primary osteoarthritis and right plantar fasciitis Procedure & Operative Findings Date of Procedure 10/01/19 Procedure Performed/Findings right total knee arthroplasty and right plantar fascia injection Anesthesia Type GETA plus regional Estimated Blood Loss Estimated blood loss (mL): minimal Specimens/Packing Specimens Removed none Packing: none BIANCA HUBBARD MD Oct 01, 2019 07:24
--- NOTE | 2019-10-01 07:27 | D/C HH Face to Face Order ---
D/C Face to Face Orders Reconcile Patient Problems Problems Reviewed?: Yes Instructions for Patient Via [employer], Patient Instructions/FollowUp: three weeks Physician to follow Patient: three weeks Discharge Diet for Home: ADA Diet Patient Data-Allergies,Ht & Wt Patient Allergies: Coded Allergies: No Known Drug Allergies (Verified , 12/24/07) Height (Feet): 5 Height (Inches): 10.00 Weight (Pounds): 244 Weight (Ounces): 0.0 Home Health Need/Face to Face Date of Face to Face: Oct 01, 2019 Clinical Findings: Instability, Muscle weakness, Pain with ambulation, Unsteady gait I have seen Pt [id number]: Yes Discharged To: Home Diagnosis/Conditions: right total knee arthroplasty Patient is Homebound due to: Wendy fall risk due to instabilty, Muscle weakness, Pain w/ambulation Homebound Status Due to the above stated illness, injury or surgical procedure (medical condition or diagnosis) and associated clinical findings, the patient is homebound because of his/her inability to leave home except with aid of a supportive device and/or person AND leaving the home requires a considerable and taxing effort or is medically contraindicated. Pt req the following assistanc: Walker Home Health Nursing Orders Home Health Services Order: Physical Therapy-Evaluate & Treat DC right knee nba and apply steristrips 10/15/19 Home Health Infusion Therapy Line Start Date: Oct 01, 2019 Therapy Orders Therapy Orders: Physical Therapy, PT to assess for OT Therapy Specific Orders: Eval assistive deivces, Teach enviro modifications/safety, Gait training, Increase strength/endurance, Provider maintenance therapy, Restore ROM Certify Stmt I certify that this patient is under my care and that I, a nurse practitioner or a physician; a under water assistant working with me, had a face to face encounter that - meets the physician face to face encounter requirements with this patient as dated. BIANCA HUBBARD MD Oct 01, 2019 07:27
[2019-10-01] MEDS ORDERED: proPOfol 200 MG/20 ML (DIPRIVAN) VIAL IV ONE (09:00)
[2019-10-01] MEDS ORDERED: morphine INJ 10 MG/ML 1ML (SYR OR VIAL) ONE (09:16)
[2019-10-01] MEDS: HYDROmorphone 2 MG/ML VIAL (DILAUDID) ONE ×2 (09:50→10:08)
--- NOTE | 2019-10-01 10:03 | Progress Note ---
Standard Progress Note Progress Notes/Assess & Plan Date Seen by a Provider: Oct 01, 2019 Time Seen by a Provider: 10:02 Progress/Assessment & Plan post op check denies paresthesia radiographs--no fracture. components well aligned RLE--2 plus DP pulse with brisk cap refill, intact DF and PF of toes and ankle. Sensation intact throughout s/p RTKA mobilize as able BIANCA HUBBARD MD Oct 01, 2019 10:03
[2019-10-01] MEDS ORDERED: morphine PCA 100 MG/100 ML BAG IV ONE (11:17)
[2019-10-01] MEDS: NS IV 1000 ML 1,000 ML IV SCH ×2 (12:02→20:51)
--- NOTE | 2019-10-01 12:06 | NUR ---
Pt arrived at 10:30, report received from Tami. Lots of family at bedside. Pt alert/orientedx4. Polar mindy in place. Dressing clean/dry/intact. 3L/NC. Bld sugar at 11:00 125. EMBEDDED LINUX ENGINEER set up with assistance of Laney/charge nurse. Pain relieved with MS and pt resting quietly at this time. Asisted to side of bed earlier per pt request and then laid back down. Used urinal with assistance. Call light in reach. Dr Mar in to see pt as well. Bed alarm on. Will cont to monitor.
--- NOTE | 2019-10-01 13:00 | OPERATIVE REPORT ---
DATE OF SERVICE: 10/01/2019 PREOPERATIVE DIAGNOSES: 1. Right knee primary osteoarthritis. 2. Right plantar fasciitis. POSTOPERATIVE DIAGNOSES: 1. Right knee primary osteoarthritis. 2. Right plantar fasciitis. PROCEDURES PERFORMED: 1. Right total knee arthroplasty. 2. Right plantar fascia injection. SURGEON: Tony Hubbard MD. CANVAS CUTTER HAND: Felipe Murcia, who assisted throughout the procedure and closed the incision. ANESTHESIA: General endotracheal by Lauren Rodgers. TOURNIQUET TIME: 65 minutes at 300 mmHg. ESTIMATED BLOOD LOSS: Minimal. DRAINS: None. COMPLICATIONS: None. POSTOPERATIVE PLAN: Routine total knee arthroplasty protocol. The patient was transferred to the recovery room awake and in stable condition. MATERIALS: MicroPort cemented size 5 femur, cemented size 6 tibia with a 10 mm insert and cemented size 35 patellar button. STATEMENT OF MEDICAL NECESSITY: The patient is a 74-year-old gentleman with a longstanding progressive right knee pain. He had severe medial and patellofemoral arthrosis with complete loss of joint space and osteophyte formation. He tried injections, anti-inflammatories, rest and activity modifications without relief and due to functional impairment and failure to improve with conservative measures, the patient elected to proceed with surgical intervention. DESCRIPTION OF PROCEDURE: After risks and benefits of the procedure were discussed and questions were answered, an informed consent was signed and placed on chart, the operative site was confirmed in the preoperative holding area initialed by the surgeon. The patient was then transferred to the operating room and after adequate levels of general endotracheal anesthetic were obtained, a timeout was called confirming the operative site. The heel at the plantar fascial origin was injected with 40 mg of Depo-Medrol and 2 mL of Marcaine. The right lower extremity was then prepped and draped in the usual sterile fashion with the leg elevated and the knee flexed, tourniquet was inflated to 300 mmHg. Standard anterior approach was utilized. Hemostasis was obtained with cautery. Medial parapatellar arthrotomy was performed leaving 1 cm cuff on the patella for later reattachment. A portion of the fat pad was resected. A subperiosteal release was performed in the proximal medial tibia being careful to stay on the bony surface. The ACL was absent. The intramedullary guide was passed into the distal femur and the distal cutting block was placed. The femur was sized to a size 5, the 5 cutting block was placed parallel to the epicondylar axis and cuts were made from posterior to anterior. A subperiosteal release was then carefully performed on the posterior femur, being careful to stay on the bony surface. The intramedullary guide was then passed into the tibia. The cutting block was placed. The drop rajiv was transected from the intermalleolar axis and the cut was made. The #6 baseplate was placed and pinned into position. The drop rajiv transected from the intermalleolar axis. This was then prepared with the drill and keel punch. The patella was prepared using the freehand technique by resecting 10 mm off the undersurface and placement of the peg guide superomedially. The trials were inserted. The trochlear cut was made on the femur. A 10 mm insert provided full extension and greater than 120 degrees of flexion. The patella tracked well. There was no anterior/posterior or medial/lateral laxity in flexion or extension. The trials were removed. The joint was irrigated with pulse lavage. The bone ends were copiously irrigated with pulse lavage. The tibial baseplate was cemented into position. Excessive cement was removed. The distal femur was irrigated and dried and the femoral prosthesis was cemented into position. After placing the polyethylene insert, excess cement was removed. The knee was brought into full extension until cement had cured. The undersurface of the patella was irrigated and dried. The patellar button was cemented into position and held in position until the cement had cured. Once cement had cured, the knee was taken through range of motion. Full extension was easily obtained under 20 degrees of flexion and the gravity was easily obtained. There was no anterior/posterior or medial/lateral laxity in flexion or extension. The patella tracked well. The arthrotomy was closed with #2 Tevdek in a odrkhb-qh-rqrby interrupted fashion. Knee was flexed. The repair was stable with a well tracking patella. Subcutaneous tissues were irrigated with pulse lavage using a total of 6 liters throughout the procedure. A 0 Vicryl was used for the deep subcutaneous tissue, 2-0 Vicryl for the superficial subcutaneous tissue and nba were used on the skin. A soft dressing was applied. The tourniquet was deflated and the patient was transferred to the recovery room awake and in stable condition. Job ID: [id number] DocumentID: [id number] Dictated Date: 10/01/2019 09:09:18 Fuel Cell Test Engineer Date: 10/01/2019 12:59:16 Dictated By: TONY HUBBARD MD
--- NOTE | 2019-10-01 13:55 | Physical Therapy Evaluation ---
PT Evaluation-General Medical Diagnosis Admission Date Oct 01, 2019 at 06:04 Medical Diagnosis: right TKA Onset Date: Oct 01, 2019 Therapy Diagnosis Therapy Diagnosis: impaired mobility, strength, endurance, balance Height/Weight Height (Feet): 5 Height (Inches): 10.00 Weight (Pounds): 244 Weight (Ounces): 0.0 Precautions Precautions/Isolations: Standard Precautions Weight Bear Status Right Lower Extremity: Right Weight Bearing/Tolerated Referral Physician: Twin Reason for Referral: Evaluation/Treatment Medical History Additional Medical History PAST MEDICAL HISTORY: Recurrent sinusitis, diabetes, paroxysmal atrial fibrillation, left ventricular hypertrophy, left atrial dilation, mitral regurgitation, obesity, gout, osteoarthritis, bladder cancer. Reviewed History: Yes Social History Home: Single Level Current Living Status: Spouse PT Steps Into Home: 2 Prior Prior Level of Function SCALE: Activities may be completed with or without assistive devices. 1-Vlwovcvhwo-ygvqcjr completes the activity by him/herself with no assistance from a helper. 5-Set-up or Clean-up Assistance-helper sets up or cleans up; patient completes a ctivity. Valencia assists only prior to or following the activity. 4-Supervision or Touching Assistance-helper provides verbal cues and/or touching/steadying and/or contact guard assistance as patient completes activity. Assistance may be provided throughout the activity or intermittently. 3-Partial/Moderate Assistance-helper does LESS THAN HALF the effort. Valencia lifts, holds or supports trunk or limbs, but provides less than half the effort. 2-Substantial/Maximal Assistance-helper does MORE THAN HALF the effort. Valencia lifts or holds trunk or limbs and provides more than half the effort. 6-Kgkvaxezx-pjsfdx does ALL the effort. Patient does none of the effort to complete the activity. Or, the assistance of 2 or more helpers is required for the patient to complete the activity. If activity was not attempted, code reason: 7-Patient Refused. 9-Not Applicable-not attempted and the patient did not perform the activity before the current illness, exacerbation or injury. 10-Not Attempted due to Environmental Limitations-(lack of equipment, weather restraints, etc.). 88-Not Attempted due to Medical Conditions or Safety Concerns. Bed Mobility: 6 Transfers (B,C,W/C): 6 Gait: 6 Stairs: 6 Indoor Mobility (Ambulation): Independent Stairs: Independent PT Evaluation-Current Subjective Patient in bed pre tx, agrees to PT, has 5/10 pain in right knee. Patient is impulsive and lethargic and confused. Pt/Family Goals none stated Objective Patient Orientation: Person, Place, Situation ROM/Strength ROM Lower Extremities right knee flexion 85 degrees, extension +15 degrees Sensory Hearing: Functional Sensation Right Lower Extremit: Intact Sensation Left Lower Extremity: Intact Transfers Roll Left to Right (QC): 6 Sit to Lying (QC): 6 Lying to Sitting/Side of Bed(Q: 6 Sit to Stand (QC): 4 Chair/Flt-jr-Ggjmq Xfer(QC): 4 CGA for transfers but needs constant cues for safety, patient is impulsive and has poor safety awareness. Gait Does the Patient Walk?: Yes Mode of Locomotion: Walk Anticipated Mode of Locomotion: Walk Distance: 5'x2 Gait Assistive Device: FWW Comments/Gait Description Patient ambulates just a few feet and has to sit, commode is obtained for him to sit on and after resting he ambulates back to the bed. Patient has dizziness when sitting or standing, O2 is 95%. Balance Sitting Static: Normal Sitting Dynamic: Normal Standing Static: Fair Standing Dynamic: Fair Treatment RLE TKA protocol, patient would only perform a few ankle pumps and QS and HS, he refused to proceed with these exercises and he refused to have PT apply his CPM machine. Patient insists on laying on his left side with knee bent, patient and family educated on correct positioning and to not use a pillow under knee also. Assessment/Needs Patient has impaired mobility, strength, endurance, balance. He is impulsive an d has poor safety awareness. Patient is not compliant with performing PT at this time. Rehab Potential: Guarded PT Longterm Goals Longterm Goals PT Longterm Goals Time Frame: Oct 08, 2019 Roll Left & Right (QC): 6 Sit to Lying (QC): 6 Lying-Sitting on Side/Bed(QC): 6 Sit to Stand (QC): 4 Chair/Izo-lp-Hpmen Xfer(QC): 4 Walk 10 feet (QC): 4 Walk 50ft with 2 Turns (QC): 4 1 Step (curb) (QC): 4 4 Steps (QC): 4 PT Plan Problem List Problem List: Activity Tolerance, Functional Strength, Safety, Balance, Gait, Transfer, Bed Mobility, ROM Treatment/Plan Treatment Plan: Continue Plan of Care Treatment Plan: Bed Mobility, Education, Functional Activity Germaine, Functional Strength, Gait, Safety, Therapeutic Exercise, Transfers Treatment Duration: Oct 08, 2019 Frequency: 11 times per week Estimated Hrs Per Day: .25 hour per day Patient and/or Family Agrees t: Yes Safety Risks/Education Patient Education: Gait Training, Transfer Techniques, Reviewed Precautions, Correct Positioning, Safety Issues Teaching Recipient: Patient, Family Teaching Methods: Demonstration, Discussion Response to Teaching: Reinforcement Needed Discharge Recommendations Plan Patient will perform bed mobility and transfer training, balance and endurance training, functional strengthening, stair training, gait training, and education, to improve functional mobility and independence at home. Therapy Discharge Recommendati: Home & Family Time/GCodes Time In: 1320 Time Out: 1344 Total Billed Treatment Time: 24 Total Billed Treatment 1 visit YVONNE 15' FA 9' SUSHANT WATSON PT Oct 01, 2019 13:55
--- NOTE | 2019-10-01 14:11 | Diagnostic Imaging Report ---
INDICATION: Postop right knee arthroplasty AP and lateral views of the right knee are obtained. Right knee prosthesis appears in good alignment with no sign of fracture or device loosening. There is no unexpected foreign body post surgery. IMPRESSION: Well aligned right knee prosthesis with no acute abnormality. Dictated by: Dictated on workstation # [id number]
--- NOTE | 2019-10-01 14:44 | NUR ---
Texted Dr Mar at this time r/t diet, accuchecks, home meds and insulin.
[2019-10-01] MEDS: CEFUROXIME INJECTION 750 MG in WATER (STERILE) FOR INJECTION 10 ML IV SCH ×2 (16:03→23:38)
[2019-10-01] MEDS ORDERED: PREGABALIN 75 MG (LYRICA) CAP PO PRN (17:15)
[2019-10-01] MEDS ORDERED: DICLOFENAC 1% GEL 100 GM (VOLTAREN) TUBE TP PRN (17:15)
[2019-10-01] MEDS ORDERED: FLUTICASONE NASAL SPRAY (FLONASE) 16 GM BTL NS PRN (17:15)
[2019-10-01] MEDS ORDERED: FUROSEMIDE 20 MG (LASIX) TAB PO PRN (17:15)
[2019-10-01] MEDS ORDERED: KCL 10 MEQ TAB (MICRO K) PO PRN (17:15)
[2019-10-01] MEDS: SENNA W/DOCUSATE (SENOKOT S) TABLET PO SCH ×2 (17:52→20:51)
[2019-10-01] MEDS: oxyCODONE/APAP 5/325MG (PERCOCET 5) TABLET PO PRN ×2 (20:50→22:58)
[2019-10-01] MEDS: ALPRAZolam 1 MG (XANAX) TAB PO PRN (20:51)
[2019-10-01] MEDS: inSUlin ASPART (NovoLOG) 1 UNIT/0.01 ML (CHARGE PER UNIT) SC SCH (21:56)
--- NOTE | 2019-10-01 22:06 | NUR ---
patient is taking his own home insulin. educated we will give all meds while he is here.
[2019-10-02] MEDS: oxyCODONE/APAP 5/325MG (PERCOCET 5) TABLET PO PRN ×7 (02:56→20:47)
[2019-10-02 03:45] VITALS: BP 124/62
[2019-10-02] MEDS: inSUlin ASPART (NovoLOG) 1 UNIT/0.01 ML (CHARGE PER UNIT) SC SCH ×4 (06:16→20:48)
[2019-10-02] MEDS: MULTIVIT W/MINERALS TAB (THERAGRAN M) PO SCH (06:32)
[2019-10-02 07:23] LABS: HEMOGLOBIN 12.6 G/DL (13.3-17.7)
--- NOTE | 2019-10-02 07:36 | Progress Note ---
Standard Progress Note Progress Notes/Assess & Plan Date Seen by a Provider: Oct 02, 2019 Time Seen by a Provider: 07:35 Progress/Assessment & Plan post op check denies paresthesia radiographs--no fracture. components well aligned RLE--2 plus DP pulse with brisk cap refill, intact DF and PF of toes and ankle. Sensation intact throughout s/p RTKA mobilize as able Final Diagnosis c/o knee pain, back pain and throat pain Vital Signs Date Time Temp Pulse Resp B/P (MAP) Pulse Ox O2 Delivery O2 Flow Rate FiO2 10/02/19 03:45 36.2 65 20 124/62 (82) 92 Room Air 10/01/19 23:40 36.2 65 20 122/72 (89) 95 Nasal Cannula 3.00 10/01/19 21:00 95 Nasal Cannula 3.00 10/01/19 20:00 36.2 60 18 150/68 (95) 92 Nasal Cannula 3.00 10/01/19 16:40 95 Nasal Cannula 3.00 10/01/19 16:00 36.2 56 20 139/65 (89) 95 Nasal Cannula 3.00 10/01/19 12:47 36.0 58 18 117/76 (90) 94 Nasal Cannula 3.00 10/01/19 12:12 97 Nasal Cannula 3.00 10/01/19 10:28 35.4 53 18 156/70 (98) 94 Nasal Cannula 3.00 10/01/19 10:20 Nasal Cannula 3 10/01/19 10:20 36.1 16 148/92 (110) 97 Nasal Cannula 3 10/01/19 10:10 16 148/92 (110) Nasal Cannula 3 10/01/19 10:05 OxyMask 5 10/01/19 10:03 Nasal Cannula 3 10/01/19 10:00 16 145/53 (83) 96 10/01/19 09:50 OxyMask 5 10/01/19 09:50 16 141/77 (98) 99 Nasal Cannula 3 10/01/19 09:40 16 139/70 (93) 99 Simple Mask 8 10/01/19 09:35 OxyMask 8 10/01/19 09:30 16 136/76 (96) 98 Simple Mask 8 10/01/19 09:20 OxyMask 8 10/01/19 09:20 16 134/72 (92) 95 8 10/01/19 09:15 16 145/68 (93) 95 Room Air 8 10/01/19 09:05 36.2 18 120/62 (81) 96 Simple Mask 8 10/01/19 09:05 OxyMask 8 I & O 10/02/19 07:00 Intake Total 2435 ml Balance 2435 ml Laboratory Tests Test 10/02/19 06:50 Range/Units Hemoglobin 12.6 L 13.3-17.7 G/DL Hematocrit 39 L 40-54 % RLE--NVI distally. No calf tenderness. Dressing intact s/p RTKA PT/OT lozenge for throat encourage ambulation/OOB BIANCA HUBBARD MD Oct 02, 2019 07:36
[2019-10-02] MEDS: ALPRAZolam 1 MG (XANAX) TAB PO PRN ×2 (07:42→20:47)
[2019-10-02] MEDS ORDERED: CHLORASEPTIC LOZENGE MM PRN (07:45)
[2019-10-02 08:00] VITALS: BP 126/72
--- NOTE | 2019-10-02 08:46 | Consultation - Hospitalist ---
HPI History of Present Illness: HPI/Chief Complaint Patient is a 74-year-old male who was admitted postoperatively following a total knee replacement. I am consult for medical management. His family is at bedside and states that he had a very rough night and was awake most of the night and has just fallen asleep. She requests I do not wake him. Per her he is an insulin dependent diabetic and wears a continuous glucose monitor. Reportedly his BS stay around 130. She checked his blood sugar while I was at bedside and it read at 134. Other than a poor night's sleep she has not complaints or concerns for him. Source: family Exam Limitations: clinical condition Date Seen 10/02/19 Attending Physician Tony Mar MD PCP Tanner Duran DO Referring Physician Dr Mar Date of Admission Oct 01, 2019 at 06:04 Home Medications & Allergies Home Medications Reviewed patient Home Medication Reconciliation performed by pharmacy medication reconciliations page technician and/or nursing. Patients Allergies have been reviewed. Allergies Allergies Coded Allergies No Known Drug Allergies (Verified12/24/07) Past Ejczmnz-Liucby-Rkpwev Hx Past Med/Social Hx: Reviewed Nursing Past Med/Soc Hx Patient Social History Alcohol Use: Denies Use Recreational Drug Use: No Smoking Status: Never a Smoker Physical Abuse Screen: No Sexual Abuse: No Recent Foreign Travel: No Contact w/other who traveled: No Recent Hopitalizations: No Recent Infectious Disease Expo: No Immunizations Up To Date Tetanus Booster (TDap): Unknown Date of Pneumonia Vaccine: Jul 11, 2019 Seasonal Allergies Seasonal Allergies: Yes Past Medical History Surgeries: Orthopedic Cardiac: Atrial Fibrillation, Hypertension Reproductive: No Sexually Transmitted Disease: No Gastrointestinal: Hemorrhoids, Ulcer Musculoskeletal: Arthritis Endocrine: Diabetes, Insulin dep HEENT: Cataract Cancer: Bladder What Type of Treatment Did You: Surgical Intervention History of Blood Disorders: No Family History Reviewed Nursing Family Hx Completed stroke 19 FATHER Dementia 19 FATHER Vascular disease 19 FATHER Review of Systems ROS-Unable to Obtain: sleeping Constitutional: see HPI Physical Exam Physical Exam Vital Signs Vital Signs - First Documented 10/01/19 06:25 Temp 35.9 Pulse 59 Resp 18 B/P (MAP) 152/78 Pulse Ox 95 O2 Delivery Room Air Capillary Refill : Less Than 3 SecondsLess Than 3 Seconds Height, Weight, BMI Height: 5'10.00" Weight: 244lbs. 0.0oz. 110.931492fs; 42.45 BMI Method:Stated General Appearance: No Apparent Distress, Obese, Other (sleeping comfortably) Respiratory: Lungs Clear, No Respiratory Distress Cardiovascular: Regular Rate, Rhythm Gastrointestinal: Normal Bowel Sounds, Non Tender, Soft Extremity: Other (paulette hose one) Neurologic/Psychiatric: Alert (sleeping, arouses to verbal stimuli but quickly falls back asleep) Results Results/Procedures Labs Laboratory Tests 10/02/19 06:50 Patient resulted labs reviewed. Imaging: Reviewed Imaging Report Assessment/Plan Assessment and Plan Assess & Plan/Chief Complaint Osteoarthritis s/p TKA POD #1 Management per primary PT/OT Pain regimen IDDMII Accuchecks SSI Took home insulin last night BS well controlled so will just monitor A-fib HTN Continue amiodarone Hold home anticoagulation until ok with primary Continue home antihypertensives Diagnosis/Problems Diagnosis/Problems (1) Insulin dependent diabetes mellitus (2) Essential (primary) hypertension (3) Osteoarthritis of right knee (4) AMY Portillo MD Oct 02, 2019 08:45
[2019-10-02] MEDS ORDERED: DOXAZOSIN MESYLATE 4 MG PO SCH (09:00)
[2019-10-02] MEDS: AMIODARONE 200 MG (CORDARONE) TAB PO SCH (10:39)
[2019-10-02] MEDS: ALLOPURINOL 300 MG (ZYLOPRIM) TAB PO SCH (10:39)
[2019-10-02] MEDS: ASPIRIN E.C. 81 MG (ECOTRIN) TAB PO SCH ×2 (10:39→10:54)
[2019-10-02] MEDS: LOSARTAN 100 MG (COZAAR) TABLET PO SCH (10:39)
[2019-10-02] MEDS: SENNA W/DOCUSATE (SENOKOT S) TABLET PO SCH ×2 (10:39→20:47)
[2019-10-02] MEDS: doxAzosin 4 MG (CARDURA) TAB PO SCH (10:40)
[2019-10-02] MEDS: HYDROCHLOROTHIAZIDE 25 MG (HCTZ) TAB PO SCH (10:40)
[2019-10-02] MEDS: ENOXAPARIN 40 MG/0.4 ML (LOVENOX) SYR SC SCH ×2 (10:40→20:48)
[2019-10-02] MEDS: NS IV 1000 ML 1,000 ML IV SCH ×2 (10:48→20:48)
--- NOTE | 2019-10-02 11:05 | Anesthesia-General Post-Op ---
General Patient Condition Mental Status/LOC: Same as Preop Cardiovascular: Satisfactory Nausea/Vomiting: Absent Respiratory: Satisfactory Pain: Controlled Complications: Absent Post Op Complications Complications None Follow Up Care/Instructions Patient Instructions None needed. Anesthesia/Patient Condition Patient Condition Patient is doing well, no complaints, stable vital signs, no apparent adverse anesthesia problems. No complications reported per nursing. YAJAIRA HERRING CRNA Oct 02, 2019 11:05
[2019-10-02] MEDS: ONDANSETRON 4 MG/2 ML (SDV) Z0FRAN IVP PRN (11:24)
--- NOTE | 2019-10-02 11:30 | NUR ---
POLAR ICE PACK ON, LEISA HOSE ON, DRESSING DRY AND INTACT TO RIGHT KNEE, PATIENT RESTLESS, C/O KNEE PAIN, [employer] DRIVER CONTINUED, FAMILY AT BEDSIDE, PO FLUIDS ENCOURAGED, CALL LIGHT WITHIN REACH, C/O NAUSEA, WILL GIVE ZOFRAN
--- NOTE | 2019-10-02 11:55 | Physical Therapy Daily Note ---
PT Daily Note-Current Subjective Patient does not want to perform therapy and repeatedly states that he needs to use the bathroom. Patient is complaining of excessive nausea. Pain Numeric Pain Scale: 10-Worst Possible Pain Location: Right Location Body Site: Knee Pain Description: Acute Appearance Patient in recliner with bedside table and call light within reach. Family present and trying to get him to drink some chicken broth. Mental Status Attachments: IV Transfers SCALE: Activities may be completed with or without assistive devices. 8-Pxlhbaihdx-yrbogqi completes the activity by him/herself with no assistance from a helper. 5-Set-up or Clean-up Assistance-helper sets up or cleans up; patient completes activity. [place] assists only prior to or following the activity. 4-Supervision or Touching Assistance-helper provides verbal cues and/or touching/steadying and/or contact guard assistance as patient completes activity. Assistance may be provided throughout the activity or intermittently. 3-Partial/Moderate Assistance-helper does LESS THAN HALF the effort. [place] lifts, holds or supports trunk or limbs, but provides less than half the effort. 2-Substantial/Maximal Assistance-helper does MORE THAN HALF the effort. [place] lifts or holds trunk or limbs and provides more than half the effort. 4-Jkqcdqhqv-grsyfh does ALL the effort. Patient does none of the effort to complete the activity. Or, the assistance of 2 or more helpers is required for the patient to complete the activity. If activity was not attempted, code reason: 7-Patient Refused. 9-Not Applicable-not attempted and the patient did not perform the activity before the current illness, exacerbation or injury. 10-Not Attempted due to Environmental Limitations-(lack of equipment, weather restraints, etc.). 88-Not Attempted due to Medical Conditions or Safety Concerns. Roll Left & Right (QC): 5 Lying to Sitting/Side of Bed(Q: 4 Sit to Stand (QC): 3 Chair/Utp-fa-Bzyxk Xfer(QC): 3 transferred to recliner Weight Bearing Right Lower Extremity: Right Weight Bearing/Tolerated Gait Training Does the Patient Walk?: Yes Distance: 5 steps Gait Assistive Device: FWW Patient refused to walk around the bed to the chair stating that he could not do it at this time. Exercises Seated Therapy Exercises: Long arc quads Seated Reps: 25 Assessment Patient tolerates minimal activity and appears to self limit due to pain, nausea and behavior. Patient requires time to complete all functional tasks. PT to increase activity as tolerated by patient. Patient in recliner with needs met. PT Mcfp Goals Mcfp Goals PT Mcfp Goals Time Frame: Oct 08, 2019 Roll Left & Right (QC): 6 Sit to Lying (QC): 6 Lying-Sitting on Side/Bed(QC): 6 Sit to Stand (QC): 4 Chair/Gvt-tl-Nwddh Xfer(QC): 4 Walk 10 feet (QC): 4 Walk 50ft with 2 Turns (QC): 4 1 Step (curb) (QC): 4 4 Steps (QC): 4 PT Plan Treatment/Plan Treatment Plan: Continue Plan of Care Treatment Plan: Bed Mobility, Education, Functional Activity Germaine, Functional Strength, Gait, Safety, Therapeutic Exercise, Transfers Treatment Duration: Oct 08, 2019 Frequency: 11 times per week Estimated Hrs Per Day: .25 hour per day Patient and/or Family Agrees t: Yes Time/GCodes Time In: 1055 Time Out: 1120 Total Billed Treatment Time: 25 Total Billed Treatment 1 visit FA 13 min EX 12 min CHRISTIAN FIERRO PT Oct 02, 2019 11:55
[2019-10-02 12:00] VITALS: BP 123/69
[2019-10-02] MEDS ORDERED: VITAMIN D2 50,000 UNITS (1.25 MG) CAP PO SCH (12:15)
--- NOTE | 2019-10-02 13:21 | Occupational Therapy Eval ---
OT Evaluation-General/PLF Medical Diagnosis Admission Date Oct 01, 2019 at 06:04 Medical Diagnosis: right TKA Onset Date: Oct 01, 2019 Therapy Diagnosis Therapy Diagnosis: impaired ADLs and functional mobility Height/Weight Height (Feet): 5 Height (Inches): 10.00 Weight (Pounds): 244 Weight (Ounces): 0.0 Precautions Precautions/Isolations: Fall Prevention, Standard Precautions Safety Interventions: Bed Exit Alarm Weight Bear Status Weight Bearing Restriction: Weight Bearing/Tolerated Location Restriction: R LE Referral Physician: Twin Referral Reason: Activity Tolerance, Self Care, Evaluation/Treatment, Strengthening/ROM Medical History Pertinent Medical History: Atrial Fib, DM, OA Additional Medical History recurrent sinusitis, diabetes, paroxysmal AFib, left ventricular hypertrophy, left atrial dilation, mitral regurgitation, obesity, gout, OA, bladder cancer, left TKA Current History H&P: "The patient is a 74-year-old gentleman with complaints of progressively worsening right knee pain. He reports pain medially as well as anteriorly. He reports activity limitations because of the knee. He has undergone injections without relief. Radiographs reveal severe tricompartmental osteoarthritis and due to functional impairment and failure to improve with conservative measures, the patient elected to proceed with surgical intervention." Reviewed History: Yes Social History Home: Single Level Current Living Status: Spouse Steps Into Home: 2 ADL-Prior Level of Function SCALE: Activities may be completed with or without assistive devices. 8-Ouqyhjqlir-vduadsr completes the activity by him/herself with no assistance from a helper. 5-Set-up or Clean-up Assistance-helper sets up or cleans up; patient completes activity. [place] assists only prior to or following the activity. 4-Supervision or Touching Assistance-helper provides verbal cues and/or touching/steadying and/or contact guard assistance as patient completes activity. Assistance may be provided throughout the activity or intermittently. 3-Partial/Moderate Assistance-helper does LESS THAN HALF the effort. [place] lifts, holds or supports trunk or limbs, but provides less than half the effort. 2-Substantial/Maximal Assistance-helper does MORE THAN HALF the effort. [place] lifts or holds trunk or limbs and provides more than half the effort. 1-Txxbtjmpg-nlhwgo does ALL the effort. Patient does none of the effort to complete the activity. Or, the assistance of 2 or more helpers is required for the patient to complete the activity. If activity was not attempted, code reason: 7-Patient Refused. 9-Not Applicable-not attempted and the patient did not perform the activity before the current illness, exacerbation or injury. 10-Not Attempted due to Environmental Limitations-(lack of equipment, weather restraints, etc.). 88-Not Attempted due to Medical Conditions or Safety Concerns. ADL PLOF Comments Pt's reports he was independent with all ADLs prior to hospitalization. She indicates pt did not require AD/AE for ADLs. Self Care: Independent Functional Cognition: Independent DME/Equipment: Tub/Shower OT Current Status Subjective Pt sitting upright in recliner at start of session with family present. Pt's reports he has been drowsy throughout the morning due to the pain medicine, she states he is like this a lot at home throughout the day as well. Mental Status/Objective Patient Orientation: Person, Place, Time, Situation Attachments: IV Current Glasses/Contacts: Yes Hearing Aids: No Dentures/Partials: No Hand Dominance: Right Upper Extremity ROM WFL, BUE shoulder flexion to approx 150 degrees, he is able to touch the back of his head Upper Extremity Coordination no deficits noted Upper Extremity Sensation pt denies tingling/numbness BUEs Other Treatments Aide present stating pt's oxygen saturation level was around 88%, she went to notify the nurse. Pt seated in recliner with family present reporting PT had been in earlier to get him moving and that the pt has been worn out since. OT educated pt/family about benefits and purpose of OT txs. Pt falling asleep during the session, pt's answered questions about PLOF and home set up. Pt easily awoken to his name and he was able to answer a few questions and ROM screening. OT encouraged pt to complete ADLs or UE exercises during tx but pt fell asleep before answering.Pt unable to complete ADLs or UE exercises on this date due to fatigue/lethargy. Post OT session, pt seated upright in recliner with family present, all needs met with call light in reach. Aide present. Education OT Patient Education: Energy conservation, Progress toward Goal/Update tx plan, Purpose of tx/functional activities, Rehab process Teaching Recipient: Patient, Family Teaching Methods: Discussion Response to Teaching: Verbalize Understanding, Reinforcement Needed OT Special Education Professional Goals Special Education Professional Goals Time Frame: Oct 10, 2019 Eating (QC): 6 Oral Hygiene (QC): 6 Toileting Hygiene (QC): 6 Shower/Bathe Self (QC): 5 Upper Body Dressing (QC): 5 Lower Body Dressing (QC): 5 On/Off Footwear (QC): 5 Additional Goals: 1-Demonstrate ADL Tasks, 2-Verbalize Understanding, 3- ImproveStrength/Germaine 1=Demonstrate adherence to instructed precautions during ADL tasks. 2=Patient will verbalize/demonstrate understanding of assistive devices/modifications for ADL. 3=Patient will improve strength/tolerance for activity to enable patient to perform ADL's. OT Education/Plan Problem List/Assessment Assessment: Decreased Activ Tolerance, Impaired I ADL's, Impaired Self-Care Skills Discharge Recommendations Plan/Recommendations: Continue POC Treatment Plan/Plan of Care Treatment,Training & Education: Yes Patient would benefit from OT for education, treatment and training to promote independence in ADL's, mobility, safety and/or upper extremity function for ADL's. Plan of Care: ADL Retraining, Caregiver Training, Functional Mobility, UE Funct Exercise/Act Treatment Duration: Oct 10, 2019 Frequency: 5 times per week Estimated Hrs Per Day: .25 hour per day Agreement: Yes Rehab Potential: Guarded Time/GCodes Start Time: 11:43 Stop Time: 11:52 Total Time Billed (hr/min): 9 Billed Treatment Time 1, DEBBY FAIR OT Oct 02, 2019 13:21
--- NOTE | 2019-10-02 14:00 | NUR ---
REQUESTING TO URINATE FREQUENTLY, VOIDING SMALL AMOUNTS, BLADDER SCAN DONE, SHOWS 136 ML POST VOID
--- NOTE | 2019-10-02 14:17 | NUR ---
"RD ASSESSMENT PMHx: DM; afib; gout; CA(bladder); s/p RTKA PT INTERACTION: Pt was awake and pleasant during nutrition assessment. Note family present at bedside. Family states pt current appetite is poor and has been for the past few days. Note avg PO intake <25% x2meal, per chart review. Pt states following a low-CHO diet at home and has no issues with chewing/swallowing food. Pt states recent issues with n/v, with one episode of emesis of 10/01 per family. Pt states some recent issues with constipation and that his last BM was 10/01 before his surgery. Note pt currently on bowel regimen of senna BID per chart review. Pt states no recent wt changes. Note 50# wt gain x9mon, per chart review. Pt states current DM control as really good. Family states pt has very tight control of his blood glucose levels, and his average is between 125-130. ABNORMAL NUTRITION-RELATED LAB VALUES No labs taken Est. kcal needs: 5847-6441 kcal | 15-18 kcal/kg Est. Pro needs: 106-133 g Pro | 0.8-1.0 g Pro/kg PES STATEMENT: Inadequate oral intake (NI-2.1) related to loss of appetite | nausea | vomiting | constipation as evidenced by pt (family) interview | avg PO intake <25% x2meal INTERVENTION: Continue with current diet order of CHO 90g/m 0snack diet. Add Glucerna (vary) to meals TID, for increased kcal intake. Provides 220 kcal and 10 g Pro per serving. Will continue to follow and reassess as pt needs and status change. MONITOR/EVALUATE: PO Intake; Plan of Care; Hydration Status; Weight Status; Lab Values Perez Mendez, MS, RD, LD"
--- NOTE | 2019-10-02 14:20 | Physical Therapy Daily Note ---
PT Daily Note-Current Subjective Patient continues to be lethargic and participates minimally, however, requires time to complete all functional tasks. Pain Numeric Pain Scale: 10-Worst Possible Pain Location: Right Location Body Site: Knee Pain Description: Acute Mental Status Patient Orientation: Listless Attachments: Oxygen, IV Transfers SCALE: Activities may be completed with or without assistive devices. 8-Mhrxmsvpmh-hqisyuq completes the activity by him/herself with no assistance from a helper. 5-Set-up or Clean-up Assistance-helper sets up or cleans up; patient completes activity. [place] assists only prior to or following the activity. 4-Supervision or Touching Assistance-helper provides verbal cues and/or touching/steadying and/or contact guard assistance as patient completes activity. Assistance may be provided throughout the activity or intermittently. 3-Partial/Moderate Assistance-helper does LESS THAN HALF the effort. [place] lifts, holds or supports trunk or limbs, but provides less than half the effort. 2-Substantial/Maximal Assistance-helper does MORE THAN HALF the effort. [place] lifts or holds trunk or limbs and provides more than half the effort. 0-Rdpluuewn-bqcsbw does ALL the effort. Patient does none of the effort to complete the activity. Or, the assistance of 2 or more helpers is required for the patient to complete the activity. If activity was not attempted, code reason: 7-Patient Refused. 9-Not Applicable-not attempted and the patient did not perform the activity before the current illness, exacerbation or injury. 10-Not Attempted due to Environmental Limitations-(lack of equipment, weather restraints, etc.). 88-Not Attempted due to Medical Conditions or Safety Concerns. Roll Left & Right (QC): 5 Sit to Lying (QC): 4 Lying to Sitting/Side of Bed(Q: 5 Sit to Stand (QC): 2 Chair/Xjv-pn-Pllwk Xfer(QC): 2 Toilet Transfer (QC): 2 Patient fatigues and "melts" quickly with standing activity and requires max assist for safety. Weight Bearing Right Lower Extremity: Right Weight Bearing/Tolerated Gait Training Does the Patient Walk?: Yes Distance: 15' x 2 Walk 10 feet (QC): 2 Gait Persons Needed: 2 Gait Assistive Device: FWW bilateral flexed knee posture and shuffle gait pattern. Exercises Supine Ex: Ankle pumps, Quad Set, Heel Slides, Straight leg raise Supine Reps: 12 (AAROM) Seated Therapy Exercises: Long arc quads Seated Reps: 25 (AAROM) Treatments PT assisted patient with toileting in restroom and patient required change of clothing due to incontinence urine. Assessment Patient returned to bed and CPM/polar pack place on patient. Patient did not tolerate CPM and required removal. Patient appears to be heavily medicated, lethargic and has difficulty remaining on task. PT Jail Goals Jail Goals PT Jail Goals Time Frame: Oct 08, 2019 Roll Left & Right (QC): 6 Sit to Lying (QC): 6 Lying-Sitting on Side/Bed(QC): 6 Sit to Stand (QC): 4 Chair/Vqi-pd-Klkjq Xfer(QC): 4 Walk 10 feet (QC): 4 Walk 50ft with 2 Turns (QC): 4 1 Step (curb) (QC): 4 4 Steps (QC): 4 PT Plan Treatment/Plan Treatment Plan: Continue Plan of Care Treatment Plan: Bed Mobility, Education, Functional Activity Germaine, Functional Strength, Gait, Safety, Therapeutic Exercise, Transfers Treatment Duration: Oct 08, 2019 Frequency: 11 times per week Estimated Hrs Per Day: .25 hour per day Patient and/or Family Agrees t: Yes Time/GCodes Time In: 1240 Time Out: 1325 Total Billed Treatment Time: 45 Total Billed Treatment 1 visit FA 13 min GT 15 min EX 16 min CHRISTIAN FIERRO PT Oct 02, 2019 14:20
--- NOTE | 2019-10-02 16:00 | NUR ---
CM/SS visited with the patient for discharge planning. Plan: The patient would return home with Home Health. Home Health: The patient was provided with a preference form. The patient verbalized that he wanted [facility]. CM/SS sent referral information to agency. Patient is being looked at for IRF therefore this CM/SS is holding discharge planning until rehab informs on decision. Will continue to follow to assist with walker needs if going home with home health.
--- NOTE | 2019-10-02 16:02 | NUR ---
IRF Evaluation Order received to evaluate patient for the ARU. Patient found supine in bed with eyes closed and daughter at bedside. Discussed details specific to inpatient rehabilitation, with daughter. Daughter states "there is no other option" and "I support this idea." Will meet with patient tomorrow, to discuss the possibility of admitting to inpatient rehab. Dr. Carrington notified. Thank you for this referral. Addendum: 10/03/19 at 1341 by BRI OROZCO SS 9:30 Unable to meet with patient as a bladder scan was being completed; however, daughter available. Daughter states she intends to return to [place], today, but continues to hope patient will admit to inpatient rehab. Anticipate patient will admit to ARU, 10/04/19.
[2019-10-02 16:45] VITALS: BP 121/57
[2019-10-02] MEDS ORDERED: TAMSULOSIN 0.4 MG (FLOMAX) CAP PO SCH (18:00)
[2019-10-02 20:20] VITALS: BP 95/47
[2019-10-03] VITALS: BP 113/60
[2019-10-03] MEDS: oxyCODONE/APAP 5/325MG (PERCOCET 5) TABLET PO PRN ×6 (00:17→20:34)
[2019-10-03 04:48] VITALS: BP 101/61
--- NOTE | 2019-10-03 05:00 | DISCHARGE SUMMARY ---
DATE OF SERVICE: DIAGNOSES: 1. Right knee primary osteoarthritis. 2. Diabetes mellitus. 3. Sinusitis. 4. Atrial fibrillation. 5. Ventricular hypertrophy. 6. Tricuspid regurgitation. 7. Obesity. 8. Gout. 9. Osteoarthritis. 10. Bladder cancer. PROCEDURE: Right total knee arthroplasty. SUMMARY: The patient is a 74-year-old gentleman, who was admitted the day of a right total knee arthroplasty, which he underwent without complication postoperatively, he had difficulty advancing with therapy and difficulty with pain management. His wound was clean and dry, had no calf tenderness. Negative Homans sign. CONDITION AT DISCHARGE: Good. DISCHARGE DISPOSITION: Transferred to the inpatient rehabilitation unit for continued physical and occupational therapy. Job ID: [id number] DocumentID: [id number] Dictated Date: 10/02/2019 18:06:39 Awnings Mechanic Date: 10/03/2019 04:59:38 Dictated By: BIANCA HUBBARD MD
[2019-10-03] MEDS: inSUlin ASPART (NovoLOG) 1 UNIT/0.01 ML (CHARGE PER UNIT) SC SCH ×4 (06:02→20:34)
[2019-10-03] MEDS: MULTIVIT W/MINERALS TAB (THERAGRAN M) PO SCH (06:13)
[2019-10-03] MEDS: diphenhydrAMINE 50 MG/ML INJ (BENADRYL) IVP PRN (06:14)
[2019-10-03 06:20] LABS: HEMOGLOBIN 11.7 G/DL (13.3-17.7)
--- NOTE | 2019-10-03 07:01 | Progress Note ---
Standard Progress Note Progress Notes/Assess & Plan Date Seen by a Provider: Oct 03, 2019 Time Seen by a Provider: 06:59 Progress/Assessment & Plan post op check denies paresthesia radiographs--no fracture. components well aligned RLE--2 plus DP pulse with brisk cap refill, intact DF and PF of toes and ankle. Sensation intact throughout s/p RTKA mobilize as able Final Diagnosis resting Vital Signs Date Time Temp Pulse Resp B/P (MAP) Pulse Ox O2 Delivery O2 Flow Rate FiO2 10/03/19 06:00 Nasal Cannula 2.00 10/03/19 04:48 36.4 62 20 101/61 (74) 90 Nasal Cannula 2.00 10/03/19 00:00 36.4 70 22 113/60 (77) 91 Nasal Cannula 2.00 10/02/19 21:00 17 10/02/19 21:00 Nasal Cannula 2.00 10/02/19 20:20 35.9 56 18 95/47 (63) 96 Nasal Cannula 2.00 10/02/19 18:00 16 10/02/19 16:45 36.1 60 16 121/57 (78) Nasal Cannula 2.00 10/02/19 12:00 35.5 90 20 123/69 (87) Nasal Cannula 2.00 10/02/19 09:00 93 Nasal Cannula 2.00 10/02/19 08:00 35.5 78 16 126/72 (90) 93 Nasal Cannula 3.00 I & O 10/03/19 07:00 Intake Total 3284 ml Output Total 800 ml Balance 2484 ml Laboratory Tests Test 10/03/19 06:10 Range/Units Hemoglobin 11.7 L 13.3-17.7 G/DL Hematocrit 37 L 40-54 % Creatinine 2.55 H 0.60-1.30 MG/DL RLE--incision clean and dry. No calf tenderness. Neg Caridad's s/p RTKA doing better today DC toIRF discussed issues with daughter re enabling behavior and pain control. She is in agreement BIANCA HUBBARD MD Oct 03, 2019 07:01
[2019-10-03 07:51] VITALS: BP 121/62
--- NOTE | 2019-10-03 08:00 | NUR ---
Pt bladder scanned, 163mL residual in bladder.
[2019-10-03] MEDS: ENOXAPARIN 40 MG/0.4 ML (LOVENOX) SYR SC SCH ×2 (09:00→20:33)
[2019-10-03] MEDS: SENNA W/DOCUSATE (SENOKOT S) TABLET PO SCH ×2 (09:00→20:34)
[2019-10-03] MEDS: doxAzosin 4 MG (CARDURA) TAB PO SCH (09:00)
[2019-10-03] MEDS: ASPIRIN E.C. 81 MG (ECOTRIN) TAB PO SCH (09:00)
[2019-10-03] MEDS: HYDROCHLOROTHIAZIDE 25 MG (HCTZ) TAB PO SCH (09:00)
[2019-10-03] MEDS: LOSARTAN 100 MG (COZAAR) TABLET PO SCH (09:00)
[2019-10-03] MEDS: ALLOPURINOL 300 MG (ZYLOPRIM) TAB PO SCH (09:01)
[2019-10-03] MEDS: AMIODARONE 200 MG (CORDARONE) TAB PO SCH (09:01)
--- NOTE | 2019-10-03 09:45 | NUR ---
15mL morphine wasted from CERTIFIED ORTHOTIST with Claudia REYES
[2019-10-03 09:59] LABS: CALCIUM 8.4 MG/DL (8.5-10.1); CREATININE SERUM 2.58 MG/DL (0.60-1.30); POTASSIUM 5.3 MMOL/L (3.6-5.0)
--- NOTE | 2019-10-03 10:29 | Physical Therapy Daily Note ---
PT Daily Note-Current Subjective Patient in bed pre tx, nude, family member has a urinal pushed up into position. Patient is anxious and confused and impulsive, thrashing about the bed. Appearance Patient in recliner post tx with nurse call, has very attentive family in the room. Nurse is coming to assess patient. Mental Status Patient Orientation: Person, Confused, Place Transfers SCALE: Activities may be completed with or without assistive devices. 3-Vryglblxtv-vtsnxqr completes the activity by him/herself with no assistance from a helper. 5-Set-up or Clean-up Assistance-helper sets up or cleans up; patient completes activity. [place] assists only prior to or following the activity. 4-Supervision or Touching Assistance-helper provides verbal cues and/or touching/steadying and/or contact guard assistance as patient completes activity. Assistance may be provided throughout the activity or intermittently. 3-Partial/Moderate Assistance-helper does LESS THAN HALF the effort. [place] lifts, holds or supports trunk or limbs, but provides less than half the effort. 2-Substantial/Maximal Assistance-helper does MORE THAN HALF the effort. [place] lifts or holds trunk or limbs and provides more than half the effort. 0-Pscmbjanv-mjsfkm does ALL the effort. Patient does none of the effort to complete the activity. Or, the assistance of 2 or more helpers is required for the patient to complete the activity. If activity was not attempted, code reason: 7-Patient Refused. 9-Not Applicable-not attempted and the patient did not perform the activity before the current illness, exacerbation or injury. 10-Not Attempted due to Environmental Limitations-(lack of equipment, weather restraints, etc.). 88-Not Attempted due to Medical Conditions or Safety Concerns. Roll Left & Right (QC): 2 Lying to Sitting/Side of Bed(Q: 2 Sit to Stand (QC): 2 Chair/Een-nh-Diman Xfer(QC): 2 Max assist for bed mobility and transfers, nurse aide assists therapist. Patient gets to sitting on the side of the bed, anxious, poor safety awareness, moving and thrashing about. Patient calms down with cues and is asked how he feels and he cannot answer, he is only oriented to place and name, doesn't know the date and cannot name his family on the first try. Patient is transferred to recliner with max assist. He performs a couple of ankle pumps and refuses any further exercises. Patient is shaky, his family member states he has had heart issues in the past. Nurse aide left earlier to have nurse assess patient further medically. Weight Bearing Right Lower Extremity: Right Weight Bearing/Tolerated Treatments transfers, bed mobility Assessment Current Status: Poor Progress Patient is confused and non-compliant with total knee rehab. Declining functional mobility. PT Net Maker Goals Detention Goals PT Detention Goals Time Frame: Oct 08, 2019 Roll Left & Right (QC): 6 Sit to Lying (QC): 6 Lying-Sitting on Side/Bed(QC): 6 Sit to Stand (QC): 4 Chair/Kql-ov-Ijffj Xfer(QC): 4 Walk 10 feet (QC): 4 Walk 50ft with 2 Turns (QC): 4 1 Step (curb) (QC): 4 4 Steps (QC): 4 PT Plan Problem List Problem List: Activity Tolerance, Functional Strength, Safety, Balance, Gait, Transfer, Bed Mobility, ROM Treatment/Plan Treatment Plan: Continue Plan of Care Treatment Plan: Bed Mobility, Education, Functional Activity Germaine, Functional Strength, Gait, Safety, Therapeutic Exercise, Transfers Treatment Duration: Oct 08, 2019 Frequency: 11 times per week Estimated Hrs Per Day: .25 hour per day Patient and/or Family Agrees t: Yes Safety Risks/Education Patient Education: Transfer Techniques, Correct Positioning, Safety Issues Teaching Recipient: Patient Teaching Methods: Demonstration, Discussion Response to Teaching: Reinforcement Needed Time/GCodes Time In: 1000 Time Out: 1020 Total Billed Treatment Time: 20 Total Billed Treatment 1 visit FA ' SUSHANT WATSON PT Oct 03, 2019 10:29
--- NOTE | 2019-10-03 10:42 | Progress Note - Hospitalist ---
Subjective HPI/CC On Admission Date Seen by Provider: Oct 03, 2019 Time Seen by Provider: 10:38 Patient is a 74-year-old male who was admitted postoperatively following a total knee replacement. I am consult for medical management. His family is at bedside and states that he had a very rough night and was awake most of the night and has just fallen asleep. She requests I do not wake him. Per her he is an insulin dependent diabetic and wears a continuous glucose monitor. Reportedly his BS stay around 130. She checked his blood sugar while I was at bedside and it read at 134. Other than a poor night's sleep she has not complaints or concerns for him. Subjective/Events-last exam Pt reports not feeling well. No specific complaints other than knee pain. Family at bedside and concerned about heart rate and oral intake. Objective Exam Vital Signs Vital Signs Date Time Temp Pulse Resp B/P (MAP) Pulse Ox O2 Delivery O2 Flow Rate FiO2 10/03/19 07:51 36.4 68 20 121/62 (81) 95 Nasal Cannula 3.00 Capillary Refill : Less Than 3 SecondsLess Than 3 Seconds General Appearance: No Apparent Distress, Chronically ill Respiratory: Lungs Clear, No Respiratory Distress Cardiovascular: Regular Rate, Rhythm, No Murmur Neurologic/Psychiatric: Alert, Oriented x3 Results/Procedures Lab Laboratory Tests 10/03/19 06:10 Patient resulted labs reviewed. Imaging: Reviewed Imaging Report Assessment/Plan Assessment and Plan Assess & Plan/Chief Complaint Osteoarthritis s/p TKA POD #2 Management per primary PT/OT Pain regimen Would benefit from IRF stay MANOJ Health Education Coordinator 2.5, up from baseline of 1.1 Start IVF Encourage oral intake Trend IDDMII Accuchecks SSI, home regimen BS well controlled so will just monitor A-fib HTN Continue amiodarone Hold home anticoagulation until ok with primary Continue home antihypertensives Diagnosis/Problems Diagnosis/Problems (1) Insulin dependent diabetes mellitus Status: Chronic (2) Essential (primary) hypertension Status: Chronic (3) Osteoarthritis of right knee Qualifiers: Osteoarthritis type: primary Qualified Codes: M17.11 - Unilateral primary osteoarthritis, right knee (4) Afib Qualifiers: Atrial fibrillation type: paroxysmal Qualified Codes: I48.0 - Paroxysmal atrial fibrillation (5) MANOJ (acute kidney injury) AMY RIVERA MD Oct 03, 2019 10:42
[2019-10-03] MEDS: NS IV 1000 ML 1,000 ML IV SCH ×2 (11:34→20:33)
[2019-10-03 11:53] VITALS: BP 97/57
--- NOTE | 2019-10-03 13:18 | Occupational Ther Daily Note ---
OT Current Status-Daily Note Subjective Pt seen in recliner chair, pt immediately requests back to bed. Pt states max pain in knee. Agreeable for OT tx. ADL-Treatment Therapy Code Descriptions/Definitions Functional [place] Measure: 0=Not Assessed/NA 4=Minimal Assistance 1=Total Assistance 5=Supervision or Setup 2=Maximal Assistance 6=Modified [place] 3=Moderate Assistance 7=Complete IndependenceSCALE: Activities may be completed with or without assistive devices. 4-Lexabftpwd-kvwxpgg completes the activity by him/herself with no assistance from a helper. 5-Set-up or Clean-up Assistance-helper sets up or cleans up; patient completes activity. [place] assists only prior to or following the activity. 4-Supervision or Touching Assistance-helper provides verbal cues and/or touching/steadying and/or contact guard assistance as patient completes activity. Assistance may be provided throughout the activity or intermittently. 3-Partial/Moderate Assistance-helper does LESS THAN HALF the effort. [place] lifts, holds or supports trunk or limbs, but provides less than half the effort. 2-Substantial/Maximal Assistance-helper does MORE THAN HALF the effort. [place] lifts or holds trunk or limbs and provides more than half the effort. 3-Kavkladam-revgnm does ALL the effort. Patient does none of the effort to complete the activity. Or, the assistance of 2 or more helpers is required for the patient to complete the activity. If activity was not attempted, code reason: 7-Patient Refused. 9-Not Applicable-not attempted and the patient did not perform the activity before the current illness, exacerbation or injury. 10-Not Attempted due to Environmental Limitations-(lack of equipment, weather restraints, etc.). 88-Not Attempted due to Medical Conditions or Safety Concerns. Other Treatment Pt denies ADLs or chair exercises. Pt asked if ARU was in the plans, pt does not respond but states that is the plan "tomorrow." Pt educated on expectation to work 3 hours, pt states he is not able to complete that many hours currently. Pt educated on process of standing/ utilizing FWW to move to HOB and then laying down. Pt states, "You'll need to get someone, you can't move me." Pt directed to attempt sit to stand, pt denies. Nursing present, nursing assists OT with sit to stand (mod Ax2) to FWW, pt requires mod cues while in stance for FWW positioning toward bed. Pt begins buckling BLE's, stating, "I'm going to fall, I'm falling." Pt educated on remaining standing by straightening knees and to stand tall. Pt stands and takes few small steps backwards before again stating he is going to fall as he bends knees. Pt instructed once more to stand tall. Pt able to stand up and bring self to EOB with mod A for guidance with assist x2. Pt TD from sit to supine as pt states he is lightheaded and would like to lay. Nursing assists with bed mob. Pt lays on L side and states he needs to urinate, urinal given to pt. Pt and nursing state all needs met. Pt educated on going back to chair for part of day when pain decreases. Pt's present and agrees. Pt left in bed, all needs met. Education OT Patient Education: Correct positioning, Instructions to caregiver, Safety issues, Transfer techniques Teaching Recipient: Patient Teaching Methods: Demonstration, Discussion Response to Teaching: Verbalize Understanding, Return Demonstration, Reinforcement Needed OT Custodial Goals Custodial Goals Time Frame: Oct 10, 2019 Eating (QC): 6 Oral Hygiene (QC): 6 Toileting Hygiene (QC): 6 Shower/Bathe Self (QC): 5 Upper Body Dressing (QC): 5 Lower Body Dressing (QC): 5 On/Off Footwear (QC): 5 Additional Goals: 1-Demonstrate ADL Tasks, 2-Verbalize Understanding, 3- ImproveStrength/Germaine 1=Demonstrate adherence to instructed precautions during ADL tasks. 2=Patient will verbalize/demonstrate understanding of assistive devices/m odifications for ADL. 3=Patient will improve strength/tolerance for activity to enable patient to perform ADL's. OT Education/Plan Problem List/Assessment Assessment: Decreased Activ Tolerance, Decreased Safety Aware, Decreased UE Strength, Dependent Transfers, Impaired Bed Mobility, Impaired Cognition, Impaired Funct Balance, Impaired I ADL's, Impaired Self-Care Skills Discharge Recommendations Plan/Recommendations: Continue POC Therapy Discharge Recommendati: 24 Hour Supervision (based on pt's mental status, pain, and decreased motivation to work towards IND in ADLs. ) Treatment Plan/Plan of Care Treatment,Training & Education: Yes Patient would benefit from OT for education, treatment and training to promote independence in ADL's, mobility, safety and/or upper extremity function for ADL's. Plan of Care: ADL Retraining, Caregiver Training, Functional Mobility, UE Funct Exercise/Act Treatment Duration: Oct 10, 2019 Frequency: 5 times per week Estimated Hrs Per Day: .25 hour per day Agreement: Yes Rehab Potential: Guarded Time/GCodes Start Time: 11:19 Stop Time: 11:28 Total Time Billed (hr/min): 9 Billed Treatment Time 1, FA (9) RYDER HEADLEY OTR Oct 03, 2019 13:18
--- NOTE | 2019-10-03 14:05 | Physical Therapy Progress Note ---
Therapy Progress Note Patient refuses physical therapy this afternoon. He states "forget that, I'm not doing it." Will check back tomorrow. SUSHANT WATSON PT Oct 03, 2019 14:05
--- NOTE | 2019-10-03 14:08 | NUR ---
CM/SS waiting on discharge planning for IRF evaluation. Lina from [place] at home is awaiting a call from CM/SS to let them know of start date or cancel of referral. Will keep in contact.
--- NOTE | 2019-10-03 14:13 | CONSULTATION REPORT ---
DATE OF SERVICE: 10/03/2019 ATTENDING PHYSICIAN: Dr. Mar. SUMMARY: A 74-year-old white man known to me with BPH, prostatism and bladder cancer who just underwent a right total knee replacement 2 days ago and has been having apparently some issues of voiding; however, his postvoid residual by bladder scan were under 200 mL. The patient at home was taking doxazosin 4 mg at bedtime. Here, he is on the Flomax 0.4 mg every evening. IMPRESSION: Benign prostatic hyperplasia with prostatism and some retention. RECOMMENDATIONS: 1. Increase Flomax to b.i.d. 2. Daily bladder scan and p.r.n. for postvoid residual and straight cath if over 200 mL and manage accordingly. Job ID: [id number] DocumentID: [id number] Dictated Date: 10/03/2019 13:53:55 Radio Station Operator Date: 10/03/2019 14:12:37 Dictated By: JOSHUA WEBSTER MD
[2019-10-03 15:47] VITALS: BP 107/53
--- NOTE | 2019-10-03 16:32 | NUR ---
Pt bladder scanned, 196 mL urine in bladder
[2019-10-03] MEDS: TAMSULOSIN 0.4 MG (FLOMAX) CAP PO SCH (17:01)
[2019-10-03 19:00] VITALS: BP 156/64
--- NOTE | 2019-10-03 19:50 | NUR ---
1930- BLADDER SCAN DONE ON PATIENT SHOWING 327 ML. ORDER TO STRAIGHT CATH IF MORE THAN 200 ML. 1950- STRAIGHT CATH PERFORMED WITH STERILE TECHNIQUE OBSERVED AT THIS TIME. 350 ML OF DARK YELLOW, CLEAR URINE OBTAINED FROM BLADDER. UA WAS COLLECTED FROM THIS STRAIGHT CATH AND SENT TO LAB. PATIENT TOLERATED WELL.
[2019-10-03 20:20] LABS: BILIRUBIN,URINE NEGATIVE (NEGATIVE); CLARITY,URINE CLEAR; COLOR,URINE DARK YELLOW; GLUCOSE, URINE (UA) NEGATIVE (NEGATIVE); KETONES,URINE NEGATIVE (NEGATIVE); LEUKOCYTE ESTERASE ,URINE NEGATIVE (NEGATIVE); NITRITE,URINE NEGATIVE (NEGATIVE); PH,URINE 5.5 (5-9); PROTEIN,URINE TRACE (NEGATIVE)
[2019-10-03] MEDS: ALPRAZolam 1 MG (XANAX) TAB PO PRN (20:33)
[2019-10-03 20:34] LABS: HYALINE CASTS, URINE >50 /LPF
[2019-10-03 20:36] LABS: BACTERIA,URINE TRACE /HPF; RBC,URINE 0-2 /HPF; WBC,URINE 0-2 /HPF
[2019-10-03 20:37] LABS: AMORPHOUS SEDIMENT,UR MOD AMOR URATES /LPF
[2019-10-04] VITALS (7 sets, daily range): BP systolic 114–164; BP diastolic 61–88
[2019-10-04] MEDS: oxyCODONE/APAP 5/325MG (PERCOCET 5) TABLET PO PRN ×2 (00:24→06:02)
[2019-10-04] MEDS: diphenhydrAMINE 50 MG/ML INJ (BENADRYL) IVP PRN (03:06)
[2019-10-04] MEDS: morphine INJ 4 MG/ML 1 ML (VIAL/SYRINGE) IVP PRN ×2 (03:07→17:00)
[2019-10-04 05:37] LABS: HEMOGLOBIN 11.2 G/DL (13.3-17.7)
[2019-10-04] MEDS: NS IV 1000 ML 1,000 ML IV SCH ×3 (05:46→21:12)
[2019-10-04] MEDS: inSUlin ASPART (NovoLOG) 1 UNIT/0.01 ML (CHARGE PER UNIT) SC SCH ×4 (05:46→21:12)
[2019-10-04 05:56] LABS: CALCIUM 8.3 MG/DL (8.5-10.1); POTASSIUM 5.6 MMOL/L (3.6-5.0)
[2019-10-04] MEDS: MULTIVIT W/MINERALS TAB (THERAGRAN M) PO SCH (06:02)
--- NOTE | 2019-10-04 06:03 | NUR ---
0550- BLADDER SCAN SHOWED 64 ML IN BLADDER.
[2019-10-04 07:34] LABS: MAGNESIUM 2.2 MG/DL (1.6-2.4); PHOSPHORUS 6.9 MG/DL (2.3-4.7)
[2019-10-04] MEDS: TAMSULOSIN 0.4 MG (FLOMAX) CAP PO SCH ×2 (08:30→18:55)
--- NOTE | 2019-10-04 09:26 | Physical Therapy Daily Note ---
PT Daily Note-Current Subjective Patient slightly more alert on this date. Agrees to PT. Pain Numeric Pain Scale: 10-Worst Possible Pain Location: Right Location Body Site: Knee Pain Description: Acute Mental Status Patient Orientation: Confused Attachments: Oxygen, IV Transfers SCALE: Activities may be completed with or without assistive devices. 3-Vaazadikys-mdrgyce completes the activity by him/herself with no assistance from a helper. 5-Set-up or Clean-up Assistance-helper sets up or cleans up; patient completes activity. [place] assists only prior to or following the activity. 4-Supervision or Touching Assistance-helper provides verbal cues and/or touching/steadying and/or contact guard assistance as patient completes activity. Assistance may be provided throughout the activity or intermittently. 3-Partial/Moderate Assistance-helper does LESS THAN HALF the effort. [place] lift s, holds or supports trunk or limbs, but provides less than half the effort. 2-Substantial/Maximal Assistance-helper does MORE THAN HALF the effort. [place] lifts or holds trunk or limbs and provides more than half the effort. 5-Lmbeahuxe-xnczzc does ALL the effort. Patient does none of the effort to complete the activity. Or, the assistance of 2 or more helpers is required for the patient to complete the activity. If activity was not attempted, code reason: 7-Patient Refused. 9-Not Applicable-not attempted and the patient did not perform the activity before the current illness, exacerbation or injury. 10-Not Attempted due to Environmental Limitations-(lack of equipment, weather restraints, etc.). 88-Not Attempted due to Medical Conditions or Safety Concerns. Roll Left & Right (QC): 2 Sit to Lying (QC): 2 Lying to Sitting/Side of Bed(Q: 2 Sit to Stand (QC): 2 Chair/Bks-mn-Isbrk Xfer(QC): 2 patient is unable to safely ambulate on this date due to lethargy and weakness. Weight Bearing Right Lower Extremity: Right Weight Bearing/Tolerated Exercises Seated Therapy Exercises: Ankle pumps, Long arc quads Seated Reps: 15 (PROM) Assessment Patient will not transfer to ARU on this date per Dr. Cai due to unstable lab work. PT to increase activity as tolerated by patient. Patient refuses CPM. PT Custodial Goals Hand Tube Bender Goals PT Hand Tube Bender Goals Time Frame: Oct 08, 2019 Roll Left & Right (QC): 6 Sit to Lying (QC): 6 Lying-Sitting on Side/Bed(QC): 6 Sit to Stand (QC): 4 Chair/Lds-mx-Pkvpd Xfer(QC): 4 Walk 10 feet (QC): 4 Walk 50ft with 2 Turns (QC): 4 1 Step (curb) (QC): 4 4 Steps (QC): 4 PT Plan Treatment/Plan Treatment Plan: Continue Plan of Care Treatment Plan: Bed Mobility, Education, Functional Activity Germaine, Functional Strength, Gait, Safety, Therapeutic Exercise, Transfers Treatment Duration: Oct 08, 2019 Frequency: 11 times per week Estimated Hrs Per Day: .25 hour per day Patient and/or Family Agrees t: Yes Time/GCodes Time In: 820 Time Out: 835 Total Billed Treatment Time: 15 Total Billed Treatment 1 visit FA 15 min CHRISTIAN FIERRO PT Oct 04, 2019 09:26
[2019-10-04] MEDS: ASPIRIN E.C. 81 MG (ECOTRIN) TAB PO SCH (10:18)
[2019-10-04] MEDS: LOSARTAN 100 MG (COZAAR) TABLET PO SCH (10:18)
[2019-10-04] MEDS: doxAzosin 4 MG (CARDURA) TAB PO SCH (10:18)
[2019-10-04] MEDS: ALLOPURINOL 300 MG (ZYLOPRIM) TAB PO SCH (10:18)
[2019-10-04] MEDS: AMIODARONE 200 MG (CORDARONE) TAB PO SCH (10:18)
[2019-10-04] MEDS: HYDROCHLOROTHIAZIDE 25 MG (HCTZ) TAB PO SCH (10:18)
[2019-10-04] MEDS: SENNA W/DOCUSATE (SENOKOT S) TABLET PO SCH ×2 (10:18→21:11)
--- NOTE | 2019-10-04 10:19 | Progress Note - Urology ---
Progress Note-Urology Progress Notes/Assess & Plan Progress/Assessment & Plan NOT VOIDING WELL. BUN AND CREATININE UP. RECOMMEND 1. YEBOAH CATHETER 2. RENAL US 3. FLUID BOLUS AND MANAGE ACCORDINGLY 4. DAILY BUN/CREATININE Final Diagnosis URINE RETENTION AND FAILURE JOSHUA WEBSTER MD Oct 04, 2019 10:19
--- NOTE | 2019-10-04 10:27 | Progress Note ---
Standard Progress Note Progress Notes/Assess & Plan Date Seen by a Provider: Oct 04, 2019 Time Seen by a Provider: 10:25 Progress/Assessment & Plan post op check denies paresthesia radiographs--no fracture. components well aligned RLE--2 plus DP pulse with brisk cap refill, intact DF and PF of toes and ankle. Sensation intact throughout s/p RTKA mobilize as able Final Diagnosis confused appreciate Urology and Cardiology assistance Vital Signs Date Time Temp Pulse Resp B/P (MAP) Pulse Ox O2 Delivery O2 Flow Rate FiO2 10/04/19 08:00 36.3 71 16 134/68 (90) 92 Nasal Cannula 3.00 10/04/19 05:16 36.0 68 18 136/88 (104) 97 Nasal Cannula 10/04/19 00:41 36.2 82 20 119/66 (83) 92 Nasal Cannula 10/03/19 21:00 Nasal Cannula 2.00 10/03/19 19:00 36.7 64 20 156/64 (94) 96 Nasal Cannula 3.00 10/03/19 15:47 36.6 63 20 107/53 (71) 90 Nasal Cannula 3.00 10/03/19 11:53 36.9 62 22 97/57 (70) 93 Nasal Cannula 3.00 I & O 10/04/19 07:00 Intake Total 530 ml Output Total 425 ml Balance 105 ml Laboratory Tests Test 10/03/19 19:50 10/04/19 05:28 Range/Units Urine Color DARK YELLOW Urine Clarity CLEAR Urine pH 5.5 5-9 Urine Specific [place] >=1.030 1.016-1.022 Urine Protein TRACE NEGATIVE Urine Glucose (UA) NEGATIVE NEGATIVE Urine Ketones NEGATIVE NEGATIVE Urine Nitrite NEGATIVE NEGATIVE Urine Bilirubin NEGATIVE NEGATIVE Urine Urobilinogen 0.2 < = 1.0 MG/DL Urine Leukocyte Esterase NEGATIVE NEGATIVE Urine RBC (Auto) NEGATIVE NEGATIVE Urine RBC 0-2 /HPF Urine WBC 0-2 /HPF Urine Crystals PRESENT H /LPF Urine Amorphous Sediment MOD CAROL URATES H /LPF Urine Bacteria TRACE /HPF Urine Casts PRESENT /LPF Urine Hyaline Casts >50 H /LPF Urine Mucus NEGATIVE /LPF Urine Culture Indicated NO Hemoglobin 11.2 L 13.3-17.7 G/DL Hematocrit 35 L 40-54 % Sodium Level 136 135-145 MMOL/L Potassium Level 5.6 H 3.6-5.0 MMOL/L Chloride Level 106 98-107 MMOL/L Carbon Dioxide Level 16 L 21-32 MMOL/L Anion Gap 14 5-14 MMOL/L Blood Urea Nitrogen 67 H 7-18 MG/DL Creatinine 4.00 #H 0.60-1.30 MG/DL Estimat Glomerular Filtration Rate 15 BUN/Creatinine Ratio 17 Glucose Level 139 H 70-105 MG/DL Calcium Level 8.3 L 8.5-10.1 MG/DL Phosphorus Level 6.9 H 2.3-4.7 MG/DL Magnesium Level 2.2 1.6-2.4 MG/DL R knee incision with scant bloody DC no erythema no calf tenderness s/p RTKA with urinary retention and renal failure BIANCA HUBBARD MD Oct 04, 2019 10:27
[2019-10-04] MEDS ORDERED: CHLORASEPTIC SPRAY 177 ML LIQUID MC PRN (11:00)
[2019-10-04] MEDS ORDERED: NS IV 1000 ML 1,000 ML IV SCH (11:00)
--- NOTE | 2019-10-04 11:12 | Progress Note - Hospitalist ---
Subjective HPI/CC On Admission Date Seen by Provider: Oct 04, 2019 Time Seen by Provider: 09:20 Patient is a 74-year-old male who was admitted postoperatively following a total knee replacement. I am consult for medical management. His family is at bedside and states that he had a very rough night and was awake most of the night and has just fallen asleep. She requests I do not wake him. Per her he is an insulin dependent diabetic and wears a continuous glucose monitor. Reportedly his BS stay around 130. She checked his blood sugar while I was at bedside and it read at 134. Other than a poor night's sleep she has not complaints or concerns for him. Subjective/Events-last exam He is awake and alert, but confused. he denies any pain. He says that he is "exhausted". He has his and daughter at bedside. They asked many questions which were answered. Objective Exam Vital Signs Vital Signs Date Time Temp Pulse Resp B/P (MAP) Pulse Ox O2 Delivery O2 Flow Rate FiO2 10/04/19 08:00 36.3 71 16 134/68 (90) 92 Nasal Cannula 3.00 Capillary Refill : Less Than 3 SecondsLess Than 3 Seconds General Appearance: No Apparent Distress, WD/WN, Obese Neck: Normal Inspection, Supple Respiratory: Lungs Clear, Normal Breath Sounds, No Respiratory Distress Cardiovascular: Regular Rate, Rhythm, No Edema, No Murmur Gastrointestinal: Non Tender, Soft, Abnormal Bowel Sounds (hypoactive) Extremity: Normal Inspection, Non Tender, Pedal Edema Neurologic/Psychiatric: Alert, No Motor/Sensory Deficits Skin: Normal Color, Warm/Dry Results/Procedures Lab Laboratory Tests 10/04/19 05:28 Patient resulted labs reviewed. Imaging: Reviewed Imaging Report Assessment/Plan Assessment and Plan Assess & Plan/Chief Complaint Osteoarthritis s/p TKA POD #3 Management per primary PT/OT Pain regimen planning for IRF for rehabilitation MANOJ Hyperphosphatemia Metabolic acidosis creatinine up to 4 this morning from baseline 1 bolus IV fluids, continue NS 125/hour repeat BMP this evening IDDMII Accuchecks SSI, home regimen hold Levemir A-fib HTN Continue amiodarone hold HCTZ and losartan with kidney injury Diagnosis/Problems Diagnosis/Problems (1) MANOJ (acute kidney injury) Status: Acute (2) Osteoarthritis of right knee Qualifiers: Osteoarthritis type: primary Qualified Codes: M17.11 - Unilateral primary osteoarthritis, right knee ALDA POTTER MD Oct 04, 2019 11:12
[2019-10-04] MEDS: SODIUM BICARBONATE 650 MG TABLET (NON-FORMULARY) PO SCH ×2 (12:29→18:55)
[2019-10-04] MEDS: ALPRAZolam 1 MG (XANAX) TAB PO PRN ×2 (14:09→21:12)
[2019-10-04 18:22] LABS: CALCIUM 8.3 MG/DL (8.5-10.1); CREATININE SERUM 3.63 MG/DL (0.60-1.30)
--- NOTE | 2019-10-04 19:25 | NUR ---
PT ABDOMEN APPEARS LARGER THAN THIS AM, PT STILL PASSING GAS PER FAMILY. PT ALSO SHORT OF BREATH. FAMILY REPORTS PT HAS BEEN SHORT OF BREATH FOR LAST 48HRS AND TONIGHT HE APPEARS TO BE DOING BETTER OVERALL. DR POTTER NOTIFIED VIA PHONE OF ABDOMEN AND SHORTNESS OF BREATH. ORDER RECEIVED TO KEEP MONITORING PT.
[2019-10-04] MEDS: ONDANSETRON 4 MG/2 ML (SDV) Z0FRAN IVP PRN (21:15)
[2019-10-05 03:48] VITALS: BP 127/60
[2019-10-05 05:55] LABS: CALCIUM 8.1 MG/DL (8.5-10.1); CREATININE SERUM 3.33 MG/DL (0.60-1.30); PHOSPHORUS 5.8 MG/DL (2.3-4.7); POTASSIUM 5.2 MMOL/L (3.6-5.0)
[2019-10-05] MEDS: inSUlin ASPART (NovoLOG) 1 UNIT/0.01 ML (CHARGE PER UNIT) SC SCH ×4 (06:00→21:00)
[2019-10-05] MEDS: NS IV 1000 ML 1,000 ML IV SCH ×4 (06:11→22:32)
[2019-10-05] MEDS: MULTIVIT W/MINERALS TAB (THERAGRAN M) PO SCH (06:11)
[2019-10-05] MEDS: SODIUM BICARBONATE 650 MG TABLET (NON-FORMULARY) PO SCH ×3 (06:11→16:49)
[2019-10-05] MEDS: diphenhydrAMINE 50 MG/ML INJ (BENADRYL) IVP PRN (06:40)
[2019-10-05] MEDS: morphine INJ 4 MG/ML 1 ML (VIAL/SYRINGE) IVP PRN ×2 (06:40→15:33)
[2019-10-05 07:46] VITALS: BP 130/62
[2019-10-05] MEDS: TAMSULOSIN 0.4 MG (FLOMAX) CAP PO SCH ×2 (08:41→16:48)
[2019-10-05] MEDS: ALLOPURINOL 300 MG (ZYLOPRIM) TAB PO SCH (08:41)
[2019-10-05] MEDS: ASPIRIN E.C. 81 MG (ECOTRIN) TAB PO SCH (08:41)
[2019-10-05] MEDS: doxAzosin 4 MG (CARDURA) TAB PO SCH (08:41)
[2019-10-05] MEDS: SENNA W/DOCUSATE (SENOKOT S) TABLET PO SCH (08:41)
[2019-10-05] MEDS: AMIODARONE 200 MG (CORDARONE) TAB PO SCH (08:42)
--- NOTE | 2019-10-05 09:06 | Physical Therapy Daily Note ---
PT Daily Note-Current Subjective Patient in bed and listless and lethargic. Family and physician present. Pain Numeric Pain Scale: 10-Worst Possible Pain Location: Right Location Body Site: Knee Pain Description: Acute Comment: FLACC Mental Status Patient Orientation: Listless Attachments: Oxygen, Jimenez Catheter, IV Transfers SCALE: Activities may be completed with or without assistive devices. 7-Vhpebnagnb-xznpqwc completes the activity by him/herself with no assistance from a helper. 5-Set-up or Clean-up Assistance-helper sets up or cleans up; patient completes activity. [place] assists only prior to or following the activity. 4-Supervision or Touching Assistance-helper provides verbal cues and/or touching/steadying and/or contact guard assistance as patient completes activity. Assistance may be provided throughout the activity or intermittently. 3-Partial/Moderate Assistance-helper does LESS THAN HALF the effort. [place] lifts, holds or supports trunk or limbs, but provides less than half the effort. 2-Substantial/Maximal Assistance-helper does MORE THAN HALF the effort. [place] lifts or holds trunk or limbs and provides more than half the effort. 5-Sczepdveb-vbuozw does ALL the effort. Patient does none of the effort to complete the activity. Or, the assistance of 2 or more helpers is required for the patient to complete the activity. If activity was not attempted, code reason: 7-Patient Refused. 9-Not Applicable-not attempted and the patient did not perform the activity bef ore the current illness, exacerbation or injury. 10-Not Attempted due to Environmental Limitations-(lack of equipment, weather r estraints, etc.). 88-Not Attempted due to Medical Conditions or Safety Concerns. Weight Bearing Right Lower Extremity: Right Weight Bearing/Tolerated Exercises Supine Ex: Ankle pumps, Heel Slides, Straight leg raise, Hip abd/add Supine Reps: 15 (PROM right LE) Assessment No OOB activity per physician due to medical status. PT to increase activity as tolerated by patient. PT Chcf Goals Chcf Goals PT Web Operations Lead Goals Time Frame: Oct 25, 2019 Roll Left & Right (QC): 6 Sit to Lying (QC): 6 Lying-Sitting on Side/Bed(QC): 6 Sit to Stand (QC): 4 Chair/Och-dn-Agjew Xfer(QC): 4 Walk 10 feet (QC): 4 Walk 50ft with 2 Turns (QC): 4 1 Step (curb) (QC): 4 4 Steps (QC): 4 PT Plan Treatment/Plan Treatment Plan: Continue Plan of Care Treatment Plan: Bed Mobility, Education, Functional Activity Germaine, Functional Strength, Gait, Safety, Therapeutic Exercise, Transfers Treatment Duration: Oct 25, 2019 Frequency: 11 times per week Estimated Hrs Per Day: .5 hour per day Patient and/or Family Agrees t: Yes Time/GCodes Time In: 850 Time Out: 902 Total Billed Treatment Time: 12 Total Billed Treatment 1 visit EX 12 min CHRISTIAN FIERRO PT Oct 05, 2019 09:06
--- NOTE | 2019-10-05 09:17 | Progress Note ---
Standard Progress Note Progress Notes/Assess & Plan Date Seen by a Provider: Oct 05, 2019 Time Seen by a Provider: 09:15 Progress/Assessment & Plan post op check denies paresthesia radiographs--no fracture. components well aligned RLE--2 plus DP pulse with brisk cap refill, intact DF and PF of toes and ankle. Sensation intact throughout s/p RTKA mobilize as able Final Diagnosis more alert today Vital Signs Date Time Temp Pulse Resp B/P (MAP) Pulse Ox O2 Delivery O2 Flow Rate FiO2 10/05/19 07:46 36.4 76 16 130/62 (84) 98 OxyMask 3.00 10/05/19 03:48 36.8 95 14 127/60 (82) 97 Nasal Cannula 2.00 10/04/19 23:41 95 Nasal Cannula 2.00 10/04/19 23:30 36.4 97 16 164/70 (101) Nasal Cannula 3.00 10/04/19 21:00 Nasal Cannula 2.00 10/04/19 20:20 36.6 66 16 114/78 (90) 92 Room Air 10/04/19 16:47 36.3 68 20 143/67 (92) 98 Nasal Cannula 3.00 10/04/19 16:10 Nasal Cannula 3.00 10/04/19 12:00 36.5 68 18 136/61 (86) 98 Nasal Cannula 3.00 I & O 10/05/19 06:59 Intake Total 3300 ml Output Total 950 ml Balance 2350 ml Laboratory Tests Test 10/04/19 17:59 10/04/19 20:53 10/05/19 05:00 10/05/19 05:39 Range/Units Sodium Level 137 138 135-145 MMOL/L Potassium Level 5.0 5.2 H 3.6-5.0 MMOL/L Chloride Level 107 109 H 98-107 MMOL/L Carbon Dioxide Level 16 L 15 L 21-32 MMOL/L Anion Gap 14 14 5-14 MMOL/L Blood Urea Nitrogen 74 H 82 H 7-18 MG/DL Creatinine 3.63 H 3.33 H 0.60-1.30 MG/DL Estimat Glomerular Filtration Rate 16 18 BUN/Creatinine Ratio 20 25 Glucose Level 102 83 70-105 MG/DL Calcium Level 8.3 L 8.1 L 8.5-10.1 MG/DL Glucometer 99 87 70-110 MG/DL Phosphorus Level 5.8 H 2.3-4.7 MG/DL Test 10/05/19 06:37 Range/Units Glucometer 91 70-110 MG/DL No calf tenderness. Incision benign s/p RTKA with abd distension ?ileus?, ARF KUB< CXR per Hospitalist appreciate assistance BIANCA HUBBARD MD Oct 05, 2019 09:17
--- NOTE | 2019-10-05 09:50 | Diagnostic Imaging Report ---
INDICATION: Postoperative abdominal pain and bloating. COMPARISON: None available. FINDINGS: Examination is limited due to portable technique and patient large body habitus. Allowing for this, there are no dilated loops of small bowel. The colon has gas within it but is not dilated. No features of free intraperitoneal air, though assessment is very limited on supine imaging in suboptimal x-ray penetration due to large habitus. Degenerative changes are present in the lumbar spine. IMPRESSION: 1. Technically limited examination due to portable technique and patient large body habitus. 2. Nonobstructive bowel gas pattern. Potential ileus. Dictated by: Dictated on workstation # [id number]
--- NOTE | 2019-10-05 09:52 | Diagnostic Imaging Report ---
CHEST 1 VIEW, AP/PA ONLY Indication: Wheezing Comparison: 08/11/2019 Findings: Right midlung zone band-like opacity has developed. Chronic linear opacities in lung bases are similar. No pleural effusion or pneumothorax. Stable cardiomegaly. Impression: 1. Increased right midlung zone subsegmental atelectasis. Consider follow-up PA and lateral chest radiographs in 4 weeks to ensure resolution. Dictated by: Dictated on workstation # [id number]
[2019-10-05 11:16] VITALS: BP 158/63
[2019-10-05] MEDS: ALPRAZolam 1 MG (XANAX) TAB PO PRN (11:33)
--- NOTE | 2019-10-05 12:02 | Progress Note - Hospitalist ---
Subjective HPI/CC On Admission Date Seen by Provider: Oct 05, 2019 Time Seen by Provider: 08:55 Patient is a 74-year-old male who was admitted postoperatively following a total knee replacement. I am consult for medical management. His family is at bedside and states that he had a very rough night and was awake most of the night and has just fallen asleep. She requests I do not wake him. Per her he is an insulin dependent diabetic and wears a continuous glucose monitor. Reportedly his BS stay around 130. She checked his blood sugar while I was at bedside and it read at 134. Other than a poor night's sleep she has not complaints or concerns for him. Subjective/Events-last exam He has no complaints or concerns. He is disoriented. He denies any pain. Objective Exam Vital Signs Vital Signs Date Time Temp Pulse Resp B/P (MAP) Pulse Ox O2 Delivery O2 Flow Rate FiO2 10/05/19 11:16 36.4 71 16 158/63 (94) 97 OxyMask 3.00 Capillary Refill : Less Than 3 SecondsLess Than 3 Seconds General Appearance: No Apparent Distress, Obese Neck: Normal Inspection, Supple Respiratory: No Respiratory Distress, Wheezing Cardiovascular: Regular Rate, Rhythm, No Murmur Gastrointestinal: Non Tender, Abnormal Bowel Sounds (Hypoactive), Distended; No Guarding Extremity: Normal Inspection, Non Tender, Pedal Edema Neurologic/Psychiatric: Alert, No Motor/Sensory Deficits, Disoriented Skin: Normal Color, Warm/Dry Results/Procedures Lab Laboratory Tests 10/04/19 17:59 10/05/19 05:00 Patient resulted labs reviewed. Imaging: Reviewed Imaging Report Assessment/Plan Assessment and Plan Assess & Plan/Chief Complaint MANOJ Hyperphosphatemia Metabolic acidosis creatinine slightly improved today, BUN worsening Continue NS 125/hour Continue to monitor Postoperative ileus No bowel movement since surgery Abdomen distended KUB with nonobstructive bowel gas pattern Consult surgery for assistance Osteoarthritis s/p TKA POD #4 Management per primary PT/OT Pain regimen ordered planning for IRF for rehabilitation IDDMII Accuchecks SSI hold Levemir A-fib HTN Continue amiodarone hold HCTZ and losartan with kidney injury Diagnosis/Problems Diagnosis/Problems (1) MANOJ (acute kidney injury) Status: Acute (2) Postoperative ileus Status: Acute (3) Osteoarthritis of right knee Qualifiers: Osteoarthritis type: primary Qualified Codes: M17.11 - Unilateral primary osteoarthritis, right knee (4) Delirium Status: Acute ALDA POTTER MD Oct 05, 2019 12:02
[2019-10-05] MEDS ORDERED: LACTULOSE SYRUP 10GM/15ML (ENULOSE) 30ML UDC PO NR (12:45)
[2019-10-05] MEDS ORDERED: RT-ALBUTEROL/IPRATROPIUM 3 ML (DUONEB) VIAL INH PRN (12:45)
--- NOTE | 2019-10-05 12:54 | Consultation - Surgery ---
History of Present Illness History of Present Illness Patient Consulted On(wellington/time) 10/05/19 12:49 Time Seen by Provider: 12:32 History of Present Illness Surgery asked to consult regarding Abdominal distention. HPI: Pt is a 74 yo male who has been here since elective knee replacement on 10/01. He was seen in bed, sleepy but arousable; states he just got some Xanax and Morphine. She thinks his belly is "about 35% bigger than normal' and states he did pass some gas today, but has not had a BM while he has been in the hospital. Pt does not move much beyond when PT comes up to work with him. He is only taking minimal amounts of clears. He complains of some abdominal pain that he rates as 5-6 out of 10; just a dull continuous ache with no radiation of pain. He has some nausea but no vomiting. Allergies and Home Medications Allergies Coded Allergies: No Known Drug Allergies (Verified , 12/24/07) Home Medications Allopurinol 300 Mg Tablet, 300 MG PO DAILY, (Reported) Amiodarone HCl 200 Mg Tablet, 200 MG PO DAILY, (Reported) Cholecalciferol (Vitamin D3) 50,000 Unit Capsule, 50,000 UNIT PO Th, (Reported) Cod Liver Oil 1 Each Capsule, 1 CAP PO DAILY, (Reported) Diclofenac Sodium 100 Gm Gel..gram., TP BID PRN for JOINT PAIN, (Reported) Doxazosin Mesylate 8 Mg Tablet, 4 MG PO DAILY, (Reported) TAKES 1/2 (8MG) TABLET Fluticasone Propionate 16 Gm [place].susp, 1 SPRAY NS BID PRN for CONGESTION, (Reported) Furosemide 20 Mg Tablet, 20 MG PO DAILY PRN for SWELLING, (Reported) Insulin Glargine,Hum.rec.anlog 100 Unit/1 Ml Insuln.pen, 40-60 UNITS SC HS, (Reported) Insulin Lispro 100 Unit/1 Ml Insuln.pen, SC TIDAC, (Reported) 1 UNIT OF INSULIN FOR EVERY 10GM OF CARBS Losartan/Hydrochlorothiazide 1 Each Tablet, 1 TAB PO DAILY, (Reported) Potassium Chloride 10 Meq Tablet.er, 10 MEQ PO DAILY PRN for WHEN TAKING FUROSEMIDE, (Reported) Pregabalin 75 Mg Capsule, 75 MG PO BID PRN for NERVE PAIN, (Reported) Rivaroxaban 20 Mg Tablet, 15-20 MG PO DAILY, (Reported) TAKES 20MG DAILY LONG HEMORRHOID BLEEDING IS NOT BAD, MAY SKIP A DOSE IF BLEEDING IS LARGE AMOUNTS. Tramadol HCl 50 Mg Tablet, 50 MG PO Q6H PRN for PAIN-MODERATE (5-7), (Reported) Xylitol 550 Mg Ma.buc.tab, 550 MG MM QID PRN for DRY MOUTH, (Reported) Zolpidem Tartrate 10 Mg Tablet, 10 MG PO HS, (Reported) [E-Poise] , 1 TAB PO DAILY, (Reported) Patient Home Medication List Home Medication List Reviewed: Yes Past Dwohvcw-Ecgfql-Mmmlbj Hx Patient Social History Alcohol Use: Denies Use Recreational Drug Use: No Smoking Status: Never a Smoker Recent Foreign Travel: No Contact w/Someone Who Travel: No Recent Infectious Disease Expo: No Recent Hopitalizations: No Physical Abuse Screen: No Sexual Abuse: No Immunizations Up To Date Tetanus Booster (TDap): Unknown Date of Pneumonia Vaccine: Jul 11, 2019 Seasonal Allergies Seasonal Allergies: Yes Surgeries History of Surgeries: Yes (LEFT KNEE REPLACEMENT,ULCER,UMB HERNIA, BLADDER TUMOR) Surgeries: Orthopedic Respiratory History of Respiratory Disorde: Yes (cough for about a week) Cardiovascular History of Cardiac Disorders: Yes (several cardioversions, 4 ablations) Cardiac Disorders: Atrial Fibrillation, Hypertension Neurological History of Neurological Disord: No Reproductive System Hx Reproductive Disorders: No Sexually Transmitted Disease: No Genitourinary History of Genitourinary Disor: Yes (hx bladder cancer) Gastrointestinal History of Gastrointestinal Di: Yes Gastrointestinal Disorders: Hemorrhoids, Ulcer Musculoskeletal History of Musculoskeletal Dis: Yes Musculoskeletal Disorders: Arthritis Endocrine History of Endocrine Disorders: Yes Endocrine Disorders: Diabetes, Insulin dep HEENT History of HEENT Disorders: Yes HEENT Disorders: Cataract Cancer History of Cancer: Yes Cancer: Bladder Psychosocial History of Psychiatric Problem: No Integumentary History of Skin or Integumenta: No Blood Transfusions History of Blood Disorders: No Family Medical History Significant Family History: Stroke, Vascular Disease Family Medial History: Completed stroke 19 FATHER Dementia 19 FATHER Vascular disease 19 FATHER Review of Systems-General Constitutional: No chills, No diaphoresis; malaise, weakness EENTM: No blurred vision, No double vision, No mouth pain, No mouth swelling, No epistaxis Respiratory: No cough; dyspnea on exertion; No hemoptysis; short of breath Cardiovascular: No chest pain, No palpitations Gastrointestinal: abdominal pain; No dysphagia, No jaundice, No melena; nausea; No vomiting Genitourinary: No dysuria, No frequency, No hematuria Musculoskeletal: joint pain, joint swelling, muscle pain, muscle stiffness Skin: No lesions, No lumps Psychiatric/Neurological: Denies Anxiety, Denies Depressed, Denies Seizure, Denies Tremors Other pt denies any hx of abnormal bleeding or bruising Physical Exam-General Problems Physical Exam Vital Signs Vital Signs - First Documented 10/01/19 06:25 Temp 35.9 Pulse 59 Resp 18 B/P (MAP) 152/78 Pulse Ox 95 O2 Delivery Room Air Capillary Refill : Less Than 3 SecondsLess Than 3 Seconds General Appearance: no apparent distress, obese Eyes: Bilateral Eye PERRL, Bilateral Eye EOMI HEENT: pharynx normal; No scleral icterus (R), No scleral icterus (L); other (pt wearing oxygen mask) Neck: non-tender, supple Respiratory: lungs clear, no respiratory distress, no accessory muscle use, decreased breath sounds Cardiovascular: regular rate, rhythm, no murmur Gastrointestinal: soft, abnormal bowel sounds (decreased), distended Extremities: no calf tenderness Neurologic/Psychiatric: alert, oriented x 3 Skin: normal color, warm/dry, ecchymosis (on abdomen, probably from shots) Lymphatic: no adenopathy (neck, axilla or groin) Data Review Labs Laboratory Tests 10/04/19 17:59: Sodium Level 137, Potassium Level 5.0, Chloride Level 107, Carbon Dioxide Level 16L, Anion Gap 14, Blood Urea Nitrogen 74H, Creatinine 3.63H, Estimat Glomerular Filtration Rate 16, BUN/Creatinine Ratio 20, Glucose Level 102, Calcium Level 8.3L 10/04/19 20:53: Glucometer 99 10/05/19 05:00: Sodium Level 138, Potassium Level 5.2H, Chloride Level 109H, Carbon Dioxide Level 15L, Anion Gap 14, Blood Urea Nitrogen 82H, Creatinine 3.33H, Estimat Glomerular Filtration Rate 18, BUN/Creatinine Ratio 25, Glucose Level 83, Calcium Level 8.1L, Phosphorus Level 5.8H, Magnesium Level 2.5H 10/05/19 05:39: Glucometer 87 10/05/19 06:37: Glucometer 91 10/05/19 10:30: Glucometer 96 10/05/19 11:35: Group A Streptococcus Screen NEGATIVE Microbiology 10/03/19 Influenza Types A,B Antigen ([facility]) - Final, Complete Assessment/Plan Assessment/Plan Assessment/Plan Large Bowel Ileus - Berkshire's syndrome Constipation DM Morbid obesity Pt must start moving around, he hasn't even really moved out of bed much. Using jaw muscles to either chew food or gum would help get intestines moving. Will stop Senna and try a couple dose of Lactulose and Dulcolax suppositories. Sips of liquids for now so that pt doesn't get small bowel backed up with too much fluids and food. Unfortunately, not much else can be done for this and it needs to work itself out on its own. NEVIN DAVE DO Oct 05, 2019 12:54
--- NOTE | 2019-10-05 13:53 | Consultation-Cardiology ---
HPI-Cardiology Cardiology Consultation: Date of Consultation 10/05/19 Date of Admission Attending Physician Tony Mar MD Admitting Physician Tanner Duran DO Consulting Physician Richie MALDONADO MD HPI: Time Seen by a Provider: 12:45 Chief Complaint: Shortness of breath This is a 74-year-old gentleman who was admitted for total knee arthroplasty due to right knee osteoarthritis. The patient had complicated postoperative course with acute kidney injury requiring IV fluids. Patient also developed postoperative ileus for which he followed with general surgery. Cardiology was consulted due to shortness of breath. Patient has history of paroxysmal atrial fibrillation and was on Xarelto before admission. He also has history of hypertension. When I saw the patient he was complaining of abdominal discomfort. He denied any significant shortness of breath or other cardiac symptoms at that point in time. Review of Systems-Cardiology Review of Systems Constitutional: As described under HPI; No As described under HPI, No no symptoms reported, No chills, No fever, No lightheadedness Eyes: No As described under HPI, No no symptoms reported, No blindness, No blurred vision, No contact lenses, No drainage, No decreased acuity, No foreign body sensation, No pain, No vision change Ears/Nose/Throat: No As described under HPI, No no symptoms reported, No chronic hearing loss, No ear discharge, No ear pain, No nasal drainage, No ulcerations Respiratory: No no symptoms reported; As described under HPI; No cough, No orthopnea; shortness of breath; No SOB with excertion, No SOB at rest, No stridor, No wheezing, No other Cardiovascular: No no symptoms reported; As described under HPI; No As described under HPI, No chest pain, No edema, No irregular heart rate, No lightheadedness, No palpitations Gastrointestinal: No no symptoms reported, No As described under HPI, No abdomen distended; abdominal pain; No blood streaked bowels, No constipation, No diarrhea, No nausea, No vomiting, No stool coloration changes Genitourinary: No As described under HPI, No burning, No dysuria, No discharge, No frequency, No flank pain, No hematuria, No urgency Skin: No rash, No skin related problems, No ulcerations Psychiatric/Neurological: No anxiety, No depression, No seizure, No focal weakness, No syncope Hematologic: No bleeding abnormalities BTU-Ejfqnx-Wjlzlg Hx Patient Social History Alcohol Use: Denies Use Recreational Drug Use: No Smoking Status: Never a Smoker Recent Foreign Travel: No Recent Infectious Disease Expo: No Physical Abuse Screen: No Sexual Abuse: No Immunizations Up To Date Tetanus Booster (TDap): Unknown Date of Pneumonia Vaccine: Jul 11, 2019 Past Medical History PMH As described under Assessment. Family Medical History Family History: Completed stroke 19 FATHER Dementia 19 FATHER Vascular disease 19 FATHER Allergies and Home Medications Allergies Coded Allergies: No Known Drug Allergies (Verified , 12/24/07) Home Medications Allopurinol 300 Mg Tablet, 300 MG PO DAILY, (Reported) Amiodarone HCl 200 Mg Tablet, 200 MG PO DAILY, (Reported) Cholecalciferol (Vitamin D3) 50,000 Unit Capsule, 50,000 UNIT PO Th, (Reported) Cod Liver Oil 1 Each Capsule, 1 CAP PO DAILY, (Reported) Diclofenac Sodium 100 Gm Gel..gram., TP BID PRN for JOINT PAIN, (Reported) Doxazosin Mesylate 8 Mg Tablet, 4 MG PO DAILY, (Reported) TAKES 1/2 (8MG) TABLET Fluticasone Propionate 16 Gm [place].susp, 1 SPRAY NS BID PRN for CONGESTION, (Reported) Furosemide 20 Mg Tablet, 20 MG PO DAILY PRN for SWELLING, (Reported) Insulin Glargine,Hum.rec.anlog 100 Unit/1 Ml Insuln.pen, 40-60 UNITS SC HS, (Reported) Insulin Lispro 100 Unit/1 Ml Insuln.pen, SC TIDAC, (Reported) 1 UNIT OF INSULIN FOR EVERY 10GM OF CARBS Losartan/Hydrochlorothiazide 1 Each Tablet, 1 TAB PO DAILY, (Reported) Potassium Chloride 10 Meq Tablet.er, 10 MEQ PO DAILY PRN for WHEN TAKING FUROSEMIDE, (Reported) Pregabalin 75 Mg Capsule, 75 MG PO BID PRN for NERVE PAIN, (Reported) Rivaroxaban 20 Mg Tablet, 15-20 MG PO DAILY, (Reported) TAKES 20MG DAILY LONG HEMORRHOID BLEEDING IS NOT BAD, MAY SKIP A DOSE IF BLEEDING IS LARGE AMOUNTS. Tramadol HCl 50 Mg Tablet, 50 MG PO Q6H PRN for PAIN-MODERATE (5-7), (Reported) Xylitol 550 Mg Ma.buc.tab, 550 MG MM QID PRN for DRY MOUTH, (Reported) Zolpidem Tartrate 10 Mg Tablet, 10 MG PO HS, (Reported) [E-Poise] , 1 TAB PO DAILY, (Reported) Patient Home Medication List Home Medication List Reviewed: Yes Physical Exam-Cardiology Physical Exam Vital Signs/I&O Capillary Refill : Less Than 3 SecondsLess Than 3 Seconds Constitutional: appears stated age, AAO x 3; No apparent distress; well- developed, well-nourished HEENT: PERRL; No discharge; hearing is well preserved, oral hygience is good; No ulceration, No xanthelasmas are seen Neck: No carotid bruit; carotid pulses are 2 + bilaterally Respiratory: chest is bilaterally symmetric, other (course breath sounds bilaterally) Cardiovascular: regular rate-rhythm, S1 and S2 Gastrointestinal: soft, distended, tenderness; No spleenomegaly Rectal: deferred Extremities: pedal edema; No clubbing, No cyanosis, No significant edema Neurologic/Psychiatric: no motor/sensory deficits, alert, normal mood/affect, oriented x 3, power is 5/5 both on sides Skin: normal color; No rash, No ulcerations Lymphatic: no adenopathy (neck, axilla or groin) Data Review Labs Microbiology 10/05/19 Throat Culture - Final, Complete No Beta Strep isolated A/P-Cardiology Assessment/Admission Diagnosis Dyspnea, Abdominal discomfort, postoperative ileus, Status post orthopedic surgery, Acute kidney injury, History of paroxysmal atrial fibrillation, Hypertension Plan Acute respiratory failure, increasing shortness of breath- will request an echocardiogram. Acute renal failure, unclear etiology. Could be secondary to hypertension during orthopedic surgery and ATN. Metabolic acidosis, electrolyte imbalance. Deferred to the primary team. Possible sepsis, defer to the primary team. Delirium, AMS, possibly secondary to hypoxemia. S/p Right TKA, POD #4, Postop ileus- Dr. Padron consulted and managing. Paroxysmal atrial fibrillation, atrial flutter, history of multiple ablation, had a total of 4 ablations done, last one done in February [address] Ashton, repeat EP study for atrial flutter was done in May 2017, did not have ablation done at that time. Maintained on Amiodarone. Has been on Xarelto as outpatient. [id number] score is 2, yearly risk of stroke without oral anticoagulation is 2.2 percent. Maintained on Xarelto as outpatient. Currently on Lovenox. Hypertension, controlled. Continue to monitor. Thank you for your consultation. Please call me if you have any questions. Jag Maldonado MD, FACP, FACC, FSCAI, FHRS, CCDS Interventional Cardiology Cardiac Electrophysiology Vascular Medicine and Endovascular Interventions Richie MALDONADO MD Oct 05, 2019 13:53
[2019-10-05] MEDS ORDERED: RT-ALBUTEROL/IPRATROPIUM 3 ML (DUONEB) VIAL INH SCH (14:00)
[2019-10-05 15:37] VITALS: BP 154/78
[2019-10-05] MEDS: RT-ALBUTEROL/IPRATROPIUM 3 ML (DUONEB) VIAL INH SCH ×2 (17:03→20:32)
[2019-10-05 20:50] VITALS: BP 144/72
[2019-10-06 00:35] VITALS: BP 148/64
[2019-10-06] MEDS: RT-ALBUTEROL/IPRATROPIUM 3 ML (DUONEB) VIAL INH SCH ×2 (03:20→09:05)
[2019-10-06 04:01] VITALS: BP 134/65
[2019-10-06] MEDS: SODIUM BICARBONATE 650 MG TABLET (NON-FORMULARY) PO SCH (05:23)
[2019-10-06] MEDS: MULTIVIT W/MINERALS TAB (THERAGRAN M) PO SCH (05:23)
[2019-10-06] MEDS: NS IV 1000 ML 1,000 ML IV SCH (05:24)
[2019-10-06] MEDS: morphine INJ 4 MG/ML 1 ML (VIAL/SYRINGE) IVP PRN ×3 (05:34→10:35)
[2019-10-06 05:46] LABS: CALCIUM 8.3 MG/DL (8.5-10.1); CREATININE SERUM 2.69 MG/DL (0.60-1.30); PHOSPHORUS 5.6 MG/DL (2.3-4.7); POTASSIUM 4.9 MMOL/L (3.6-5.0)
[2019-10-06] MEDS: inSUlin ASPART (NovoLOG) 1 UNIT/0.01 ML (CHARGE PER UNIT) SC SCH ×2 (06:14→11:01)
--- NOTE | 2019-10-06 07:55 | Progress Note ---
Standard Progress Note Progress Notes/Assess & Plan Date Seen by a Provider: Oct 06, 2019 Time Seen by a Provider: 07:54 Progress/Assessment & Plan post op check denies paresthesia radiographs--no fracture. components well aligned RLE--2 plus DP pulse with brisk cap refill, intact DF and PF of toes and ankle. Sensation intact throughout s/p RTKA mobilize as able Final Diagnosis better today Vital Signs Date Time Temp Pulse Resp B/P (MAP) Pulse Ox O2 Delivery O2 Flow Rate FiO2 10/06/19 04:01 36.3 80 18 134/65 (88) 92 Room Air 10/06/19 03:20 93 Room Air 10/06/19 00:35 36.3 72 16 148/64 (92) 97 OxyMask 3.00 10/05/19 21:00 OxyMask 2.00 10/05/19 20:50 36.1 75 18 144/72 (96) 97 OxyMask 3.00 10/05/19 20:35 94 OxyMask 3.00 10/05/19 15:37 36.2 73 16 154/78 (103) 98 OxyMask 3.00 10/05/19 11:51 94 OxyMask 3.00 10/05/19 11:51 69 94 10/05/19 11:16 36.4 71 16 158/63 (94) 97 OxyMask 3.00 10/05/19 09:00 Nasal Cannula 2.00 I & O 10/06/19 07:00 Intake Total 200 ml Output Total 1250 ml Balance -1050 ml Laboratory Tests Test 10/05/19 10:30 10/05/19 11:35 10/05/19 16:01 10/05/19 20:50 Range/Units Glucometer 96 105 118 H 70-110 MG/DL Group A Streptococcus Screen NEGATIVE NEGATIVE Test 10/06/19 05:15 10/06/19 06:05 Range/Units Sodium Level 142 135-145 MMOL/L Potassium Level 4.9 3.6-5.0 MMOL/L Chloride Level 111 H 98-107 MMOL/L Carbon Dioxide Level 16 L 21-32 MMOL/L Anion Gap 15 H 5-14 MMOL/L Blood Urea Nitrogen 92 H 7-18 MG/DL Creatinine 2.69 #H 0.60-1.30 MG/DL Estimat Glomerular Filtration Rate 23 BUN/Creatinine Ratio 34 Glucose Level 123 H 70-105 MG/DL Calcium Level 8.3 L 8.5-10.1 MG/DL Phosphorus Level 5.6 H 2.3-4.7 MG/DL Glucometer 125 H 70-110 MG/DL RLE dressing intact. No calf tenderness. s/p RTKA with ARF, ileus encourage OOB to day if can tolerate BIANCA HUBBARD MD Oct 06, 2019 07:55
[2019-10-06 08:00] VITALS: BP 136/81
[2019-10-06] MEDS: ALLOPURINOL 300 MG (ZYLOPRIM) TAB PO SCH (08:52)
[2019-10-06] MEDS: TAMSULOSIN 0.4 MG (FLOMAX) CAP PO SCH (08:52)
[2019-10-06] MEDS: AMIODARONE 200 MG (CORDARONE) TAB PO SCH (08:52)
[2019-10-06] MEDS: ASPIRIN E.C. 81 MG (ECOTRIN) TAB PO SCH (08:52)
[2019-10-06] MEDS ORDERED: BISACODYL 10 MG SUPP (DULCOLAX) PR SCH (09:00)
--- NOTE | 2019-10-06 09:06 | NUR ---
PT HAVING A PROCEDURE AT THIS TIME. RN INFORMED IF PT NEEDS A PRN AFTERWARDS JUST LET ME KNOW AND I'LL COME GIVE ONE.
--- NOTE | 2019-10-06 09:23 | Progress Note - Urology ---
Progress Note-Urology Progress Notes/Assess & Plan Progress/Assessment & Plan IMPROVING. CREATININE IMPROVING. URINE CLEAR Final Diagnosis RENAL FAILURE JOSHUA WEBSTER MD Oct 06, 2019 09:23
[2019-10-06] MEDS ORDERED: ENOXAPARIN 300 MG/3 ML (LOVENOX) MULTI-DOSE VIAL SQ SCH (10:30)
--- NOTE | 2019-10-06 10:44 | Consultation-Cardiology ---
HPI-Cardiology Cardiology Consultation Date of Consultation 10/06/19 Date of Admission Time Seen by Provider: 08:50 Indication: increased dyspnea, PAF HPI Patient is a 74 y/o male with history of PAF, HTN. Underwent right TKA and is POD #4. Started c/o increased dypsnea and having AMS per family. Denies any chest pain. C/o abdominal pain. Dx with post op ileus, ARF. Denies any dizziness or lightheadedness. No other complaints at this time. 74-year-old gentleman with history of paroxysmal atrial fibrillation, had right TKA, on my evaluation he is lethargic, barely opening his eyes, having increasing dyspnea and diffuse edema. Had significant pain in his knee, received 1 mg of morphine prior to my evaluation. No chest pain was reported. No palpitation, review of his record showed that he had worsening renal function and aggressive deterioration in his electrolytes over the past couple of days. Home Medications & Allergies Allergies: Coded Allergies: No Known Drug Allergies (Verified , 12/24/07) Home Medication List Reviewed: Yes HCV-Fcpqeg-Rgzlam Hx Patient Social History Marital Status: Employed/Student: retired Alcohol Use: Denies Use Recreational Drug Use: No Smoking Status: Never a Smoker Recent Foreign Travel: No Recent Infectious Disease Expo: No Recent Hopitalizations: No Physical Abuse Screen: No Sexual Abuse: No Immunizations Up To Date Tetanus Booster (TDap): Unknown Date of Pneumonia Vaccine: Jul 11, 2019 Past Medical History PAF, HTN Family Medical History Significant Family History: Stroke, Vascular Disease Family History: Completed stroke 19 FATHER Dementia 19 FATHER Vascular disease 19 FATHER Review of Systems-General Review of Systems Constitutional: see HPI; No chills, No diaphoresis; malaise, weakness, other (lethargic, unable to provide full review of systems) EENTM: No blurred vision, No double vision, No mouth pain, No mouth swelling, No epistaxis Respiratory: No cough; dyspnea on exertion; No hemoptysis; orthopnea, short of breath; No wheezing Cardiovascular: see HPI; No chest pain; edema; No palpitations Gastrointestinal: abdominal pain; No dysphagia, No jaundice, No melena; nausea; No vomiting Genitourinary: No dysuria, No frequency, No hematuria Musculoskeletal: joint pain, joint swelling, muscle pain, muscle stiffness Skin: No lesions, No lumps Psychiatric/Neurological: Denies Anxiety, Denies Depressed, Denies Seizure, Denies Tremors Reviewed Test Results Reviewed Test Results Lab Laboratory Tests Test 10/05/19 16:01 10/05/19 20:50 10/06/19 05:15 10/06/19 05:51 Range/Units Glucometer 105 118 H 70-110 MG/DL Sodium Level 142 135-145 MMOL/L Potassium Level 4.9 3.6-5.0 MMOL/L Chloride Level 111 H 98-107 MMOL/L Carbon Dioxide Level 16 L 21-32 MMOL/L Anion Gap 15 H 5-14 MMOL/L Blood Urea Nitrogen 92 H 7-18 MG/DL Creatinine 2.69 #H 0.60-1.30 MG/DL Estimat Glomerular Filtration Rate 23 BUN/Creatinine Ratio 34 Glucose Level 123 H 70-105 MG/DL Calcium Level 8.3 L 8.5-10.1 MG/DL Phosphorus Level 5.6 H 2.3-4.7 MG/DL White Blood Count 4.1 L 4.3-11.0 10^3/uL Red Blood Count 3.13 L 4.35-5.85 10^6/uL Hemoglobin 10.2 L 13.3-17.7 G/DL Hematocrit 33 L 40-54 % Mean Corpuscular Volume 105 H 80-99 FL Mean Corpuscular Hemoglobin 33 25-34 PG Mean Corpuscular Hemoglobin Concent 31 L 32-36 G/DL Red Cell Distribution Width 15.2 H 10.0-14.5 % Platelet Count 76 L 130-400 10^3/uL Mean Platelet Volume 11.5 H 7.4-10.4 FL Test 10/06/19 06:05 10/06/19 10:44 10/06/19 10:56 Range/Units Glucometer 125 H 143 H 70-110 MG/DL Blood Gas Puncture Site RT RADIAL Blood Gas Patient Temperature 36.3 Arterial Blood pH 7.28 *L 7.37-7.43 Arterial Blood Partial Pressure CO2 42 35-45 MMHG Arterial Blood Partial Pressure O2 69 L 79-93 MMHG Arterial Blood HCO3 19 L 23-27 MMOL/L Arterial Blood Total CO2 20.3 L 21.0-31.0 MMOL/L Arterial Blood Oxygen Saturation 92 L 94-100 % Arterial Blood Base Excess -6.7 L -2.5-2.5 MMOL/L Saud Test YES-POS Blood Gas Ventilator Setting NO Blood Gas Inspired Oxygen ROOM AIR Laboratory Tests 10/05/19 11:35: Group A Streptococcus Screen NEGATIVE 10/05/19 16:01: Glucometer 105 10/05/19 20:50: Glucometer 118H 10/06/19 05:15: Sodium Level 142, Potassium Level 4.9, Chloride Level 111H, Carbon Dioxide Level 16L, Anion Gap 15H, Blood Urea Nitrogen 92H, Creatinine 2.69#H, Estimat Glomerular Filtration Rate 23, BUN/Creatinine Ratio 34, Glucose Level 123H, Calcium Level 8.3L, Phosphorus Level 5.6H 10/06/19 06:05: Glucometer 125H Microbiology 10/05/19 Throat Culture - Preliminary, Resulted No Beta Strep isolated Physical Exam Physical Exam Vital Signs Vital Signs - First Documented 10/01/19 06:25 Temp 35.9 Pulse 59 Resp 18 B/P (MAP) 152/78 Pulse Ox 95 O2 Delivery Room Air Capillary Refill : Less Than 3 SecondsLess Than 3 Seconds Height, Weight, BMI Height: 5'10.00" Weight: 244lbs. 0.0oz. 110.238245ih; 42.45 BMI Method:Stated General Appearance: Moderate Distress, Obese, Other (lethargic) Eyes: Bilateral Eye PERRL, Bilateral Eye EOMI HEENT: PERRL/EOMI, Normal ENT Inspection Neck: Normal Inspection, Supple Respiratory: Chest Non Tender, No Accessory Muscle Use, No Respiratory Distress, Decreased Breath Sounds, Wheezing Cardiovascular: Regular Rate, Rhythm, No Murmur, Other (+1-2 BLE edema) Gastrointestinal: Abnormal Bowel Sounds (Hypoactive), Distended; No Guarding; Tenderness Rectal: Deferred Extremity: Normal Inspection, Non Tender, Pedal Edema Neurologic/Psychiatric: Alert, No Motor/Sensory Deficits, Disoriented Skin: Normal Color, Warm/Dry A/P-Cardiology Admission Diagnosis Dyspnea ARF PAF HTN Assessment/Plan Acute respiratory failure, increasing shortness of breath, severe hypoxemia, I consulted Dr. Peck and will consider transferring to intensive care unit Acute renal failure, acute tubular necrosis, improving slowly, not back to baseline. Metabolic acidosis, electrolyte imbalance. Hypoxemia, questionable pulmonary embolus. Venous Doppler is negative, cannot tolerate CT angiogram, we'll consider VQ scan, started on Lovenox and IV fluid. Monitor blood pressure closely. Questionable sepsis, initiate septic workup, discussed with Dr. Cai Severely dilated right ventricle with diffuse hypokinesia, cor pulmonale, probably secondary to pulmonary embolism, unknown if it is secondary to DVT or fat embolus Delirium, AMS, possibly secondary to hypoxemia. S/p Right TKA, POD #4, Postop ileus- Dr. Padron consulted and managing. Paroxysmal atrial fibrillation, atrial flutter, history of multiple ablation, had a total of 4 ablations done, last one done in [place] [address] Ashton, repeat EP study for atrial flutter was done in May 2017, did not have ablation done at that time. Maintained on Amiodarone. Has been on Xarelto as outpatient. [id number] score is 2, yearly risk of stroke without oral anticoagulation is 2.2 percent. Maintained on Xarelto as outpatient. Currently on Lovenox. Recurrent hemorrhoid bleed, seen and followed with Dr. Edmond Hypertension, controlled. Continue to monitor. Diabetes mellitus, followed and managed by primary care physician. Clinically stable. History of borderline QT interval prolongation, continue to monitor. History of recurrent headache. Obesity, BMI is 36. Discussed weight loss. Mild sleep apnea, tried C Pap machine in the past, did not help significantly, he was unable to tolerated on the long run. Mild bilateral carotid stenosis, continue to monitor. Thank you for allowing us to participate in the management of Mr. Roberts. This is Marcos Rodríguez PA-C, as a scribe for Dr. Cristina. Patient was seen and evaluated with Marcos, examination performed, management plan was discussed, agree with the current scribed note, I made few changes to the note using Italic font MARCOS GÓMEZ Oct 06, 2019 10:44 GALLO CRISTINA MD Oct 06, 2019 11:45
[2019-10-06 10:55] LABS: ABG BASE EXCESS -6.7 MMOL/L (-2.5-2.5); ABG OXYGEN SATURATION 92 % (94-100); ABG PCO2 42 MMHG (35-45); ABG PO2 69 MMHG (79-93); ABG TCO2 20.3 MMOL/L (21.0-31.0)
[2019-10-06] MEDS: doxAzosin 4 MG (CARDURA) TAB PO SCH (10:58)
[2019-10-06 10:59] LABS: ABG PH 7.28 (7.37-7.43)
--- NOTE | 2019-10-06 11:01 | NUR ---
CRITICAL PH WAS 7.28 IN [id number] GAS -- DR POTTER ON FLOOR AND MADE AWARE -- NO NEW ORDER
[2019-10-06 11:07] LABS: ALLENS TEST YES-POS; INSPIRED O2 ROOM AIR; PATIENT TEMP 36.3; VENTILATOR NO
--- NOTE | 2019-10-06 11:12 | Progress Note - Surgery ---
QUOC MAHAN,MED STUDENT 10/06/19 1112: Subjective Date Seen by a Provider: Oct 06, 2019 Time Seen by a Provider: 07:50 Subjective/Events-last exam Patient seen and examined this morning. Still no BM today, but has been passing gas throughout the night. Family states they are going to try to have him sit on the side of the bed today. Review of Systems Pulmonary: Dyspnea; No Cough Cardiovascular: No: Chest Pain, Palpitations Gastrointestinal: Nausea, Abdominal Pain, Constipation; No: Vomiting Objective Exam Vital Signs Date Time Temp Pulse Resp B/P (MAP) Pulse Ox O2 Delivery O2 Flow Rate FiO2 10/06/19 09:00 OxyMask 2.00 10/06/19 08:51 36.0 10/06/19 08:00 36.0 82 20 136/81 (99) 90 Room Air 10/06/19 04:01 36.3 80 18 134/65 (88) 92 Room Air 10/06/19 03:20 93 Room Air 10/06/19 00:35 36.3 72 16 148/64 (92) 97 OxyMask 3.00 10/05/19 21:00 OxyMask 2.00 10/05/19 20:50 36.1 75 18 144/72 (96) 97 OxyMask 3.00 10/05/19 20:35 94 OxyMask 3.00 10/05/19 15:37 36.2 73 16 154/78 (103) 98 OxyMask 3.00 10/05/19 11:51 94 OxyMask 3.00 10/05/19 11:51 69 94 10/05/19 11:16 36.4 71 16 158/63 (94) 97 OxyMask 3.00 I & O 10/06/19 07:00 Intake Total 200 ml Output Total 1250 ml Balance -1050 ml Capillary Refill : Less Than 3 SecondsLess Than 3 Seconds General Appearance: Chronically ill, Mild Distress, Obese HEENT: PERRL/EOMI Respiratory: No Accessory Muscle Use, Decreased Breath Sounds Cardiovascular: Regular Rate, Rhythm, No Murmur Gastrointestinal: soft, abnormal bowel sounds (decreased), distended Extremity: Pedal Edema Neurologic/Psychiatric: Alert, Disoriented Results Lab Laboratory Tests 10/05/19 11:35: Group A Streptococcus Screen NEGATIVE 10/05/19 16:01: Glucometer 105 10/05/19 20:50: Glucometer 118H 10/06/19 05:15: Sodium Level 142, Potassium Level 4.9, Chloride Level 111H, Carbon Dioxide Level 16L, Anion Gap 15H, Blood Urea Nitrogen 92H, Creatinine 2.69#H, Estimat Glomerular Filtration Rate 23, BUN/Creatinine Ratio 34, Glucose Level 123H, Calcium Level 8.3L, Phosphorus Level 5.6H 10/06/19 06:05: Glucometer 125H 10/06/19 10:44: Blood Gas Puncture Site RT RADIAL, Blood Gas Patient Temperature 36.3, Arterial Blood pH 7.28*L, Arterial Blood Partial Pressure CO2 42, Arterial Blood Partial Pressure O2 69L, Arterial Blood HCO3 19L, Arterial Blood Total CO2 20.3L, Arterial Blood Oxygen Saturation 92L, Arterial Blood Base Excess -6.7L, Saud Test YES-POS, Blood Gas Ventilator Setting NO, Blood Gas Inspired Oxygen ROOM AIR 10/06/19 10:56: Glucometer 143H Microbiology 10/05/19 Throat Culture - Preliminary, Resulted No Beta Strep isolated Assessment/Plan Assessment/Plan Assessment/Plan Assessment: -Large bowel ileu, Pawnee's syndrome -Constipation -DM -Morbid Obesity Plan: Continue encouraging increasing activity if patient can tolerate. RAMEZ PADRON DO 10/06/19 1658: Subjective Time Seen by a Provider: 16:21 Subjective/Events-last exam Pt seen and examined, down in rehab. Increased flatus but no BM. Pt still not moving much. Review of Systems General: Fatigue, Malaise Pulmonary: Dyspnea; No Cough Cardiovascular: No: Chest Pain, Palpitations Gastrointestinal: Nausea, Abdominal Pain, Constipation; No: Vomiting Objective Exam General Appearance: Chronically ill, Obese Respiratory: No Accessory Muscle Use, Decreased Breath Sounds, Other (On O2) Cardiovascular: Regular Rate, Rhythm, No Murmur Gastrointestinal: soft, abnormal bowel sounds (decreased), distended Assessment/Plan Assessment/Plan Assessment/Plan Increase ambulation and movement. Repeat lactulose and Dulcolax. Fluid intake as tolerated. Supervisory-Addendum Brief Verification & Attestation Participated in pt care: history, MDM, physical Personally performed: exam, history, MDM Care discussed with: Medical Student Procedures: n/a Verification and Attestation of Medical Student E/M Service A medical student performed and documented this service in my presence. I reviewed and verified all information documented by the medical student and made modifications to such information, when appropriate. I personally performed the physical exam and medical decision making. Ramez Padron, Oct 06, 2019,16:57 QUOC MAHAN,MED STUDENT Oct 06, 2019 11:12 RAMEZ PADRON DO Oct 06, 2019 16:58
--- NOTE | 2019-10-06 11:23 | Diagnostic Imaging Report ---
PROCEDURE: US Venous Lower Ext Paul. TECHNIQUE: Multiple real-time grayscale images were obtained over the lower extremities in various projections, bilaterally. Additional duplex Doppler and color Doppler images were also obtained. INDICATION: Recent knee replacement last week. Dyspnea. Concern for pulmonary embolism. Right lower extremity edema. COMPARISON: None. FINDINGS: The bilateral common femoral vein, femoral vein, deep femoral vein, and popliteal vein are normal in appearance. These vessels show normal compressibility, color flow and doppler augmentation. The visualized deep calf veins demonstrate no distinct intraluminal thrombus. Edema is noted in the soft tissues of the right leg. IMPRESSION: 1. No sonographic evidence of deep venous thrombosis in the bilateral lower extremities. Dictated by: Dictated on workstation # [id number]
[2019-10-06 11:39] LABS: HEMOGLOBIN 10.2 G/DL (13.3-17.7); MEAN PLATELET VOLUME 11.5 FL (7.4-10.4); RED CELL DISTRIBUTION WIDTH 15.2 % (10.0-14.5); WHITE BLOOD COUNT 4.1 10^3/uL (4.3-11.0)
--- NOTE | 2019-10-06 11:39 | Diagnostic Imaging Report ---
PROCEDURE: US Renal Bilateral. TECHNIQUE: Multiple Real-time grayscale images were obtained over the kidneys in various projections bilaterally. INDICATION: Acute renal failure. FINDINGS: The right kidney measures 11.6 x 6.5 x 5.2 cm and the left kidney measures 13.4 x 5.1 x 5.1 cm. The cortical thickness and echogenicity appear normal. No calculus or hydronephrosis is seen. The bladder is decompressed by a Jimenez catheter. IMPRESSION: Unremarkable renal ultrasound. Dictated by: Dictated on workstation # [id number]
[2019-10-06 11:55] VITALS: BP 136/81
--- NOTE | 2019-10-06 11:57 | NUR ---
NOTE THAT WHILE DCING PT TO [facility] -- DR BEST HAD PUT IN ORDERS -- THIS RN ADVISED [facility] AND LEFT NOTE FOR DR COWART ABOUT --
[2019-10-06 12:31] LABS: CLARITY,URINE CLOUDY; COLOR,URINE YELLOW; GLUCOSE, URINE (UA) NEGATIVE (NEGATIVE); KETONES,URINE TRACE (NEGATIVE); LEUKOCYTE ESTERASE ,URINE TRACE (NEGATIVE); NITRITE,URINE NEGATIVE (NEGATIVE); PH,URINE 5.5 (5-9); PROTEIN,URINE TRACE (NEGATIVE)
[2019-10-06 13:09] LABS: BACTERIA,URINE NEGATIVE /HPF; BILIRUBIN,URINE 1+ (NEGATIVE); RBC,URINE >100 /HPF; SQUAMOUS EPITHELIAL CELL,UR RARE /HPF; WBC,URINE RARE /HPF
--- NOTE | 2019-10-06 13:29 | Discharge Summary ---
Discharge Summary Hospital Course Was the Problem List Reviewed?: Yes Problems/Dx: (1) MANOJ (acute kidney injury) Status: Acute (2) Postoperative ileus Status: Acute (3) Osteoarthritis of right knee Qualifiers: Qualified Codes: M17.11 - Unilateral primary osteoarthritis, right knee (4) Delirium Status: Acute Hospital Course Date of Admission: Oct 01, 2019 at 06:04 Admission Diagnosis : osteoarthritis Family Physician/Provider: Tanner Duran DO Date of Discharge: 10/06/19 Discharge Diagnosis: osteoarthritis status post TKA, MANOJ, postoperative ileus Hospital Course: Tanner Roberts is a 74-year-old male who presented with osteoarthritis of his right knee for a total knee arthroplasty. His postoperative course was complicated by acute kidney injury for which she was given IV fluids and his renal function improved. urology was consulted and assisted with cares. He also developed a postoperative ileus which is ongoing. General surgery was consulted and assisted with his ileus. cardiology was consulted and performed an echocardiogram which revealed severe pulmonary hypertension. There was concern for a pulmonary embolism and he was started on Lovenox prophylactically. Due to his decreased renal function he was unable to have a CT scan. He underwent a venous Doppler scan which was negative for DVT. He was transferred to the inpatient rehabilitation facility for ongoing therapies. Labs and Pending Lab Test: Laboratory Tests 10/05/19 16:01: Glucometer 105 10/05/19 20:50: Glucometer 118H 10/06/19 05:15: Sodium Level 142, Potassium Level 4.9, Chloride Level 111H, Carbon Dioxide Level 16L, Anion Gap 15H, Blood Urea Nitrogen 92H, Creatinine 2.69#H, Estimat Glomerular Filtration Rate 23, BUN/Creatinine Ratio 34, Glucose Level 123H, Calcium Level 8.3L, Phosphorus Level 5.6H 10/06/19 05:51: White Blood Count 4.1L, Red Blood Count 3.13L, Hemoglobin 10.2L, Hematocrit 33L, Mean Corpuscular Volume 105H, Mean Corpuscular Hemoglobin 33, Mean Corpuscular Hemoglobin Concent 31L, Red Cell Distribution Width 15.2H, Platelet Count 76L, Mean Platelet Volume 11.5H 10/06/19 06:05: Glucometer 125H 10/06/19 10:44: Blood Gas Puncture Site RT RADIAL, Blood Gas Patient Temperature 36.3, Arterial Blood pH 7.28*L, Arterial Blood Partial Pressure CO2 42, Arterial Blood Partial Pressure O2 69L, Arterial Blood HCO3 19L, Arterial Blood Total CO2 20.3L, Arterial Blood Oxygen Saturation 92L, Arterial Blood Base Excess -6.7L, Saud Test YES-POS, Blood Gas Ventilator Setting NO, Blood Gas Inspired Oxygen ROOM AIR 10/06/19 10:56: Glucometer 143H 10/06/19 12:15: Urine Color YELLOW, Urine Clarity CLOUDY, Urine pH 5.5, Urine Specific [place] 1.025H, Urine Protein TRACE, Urine Glucose (UA) NEGATIVE, Urine Ketones TRACEH, Urine Nitrite NEGATIVE, Urine Bilirubin 1+H, Urine Urobilinogen 0.2, Urine Leukocyte Esterase TRACE, Urine RBC (Auto) 3+H, Urine RBC >100H, Urine WBC RARE, Urine Squamous Epithelial Cells RARE, Urine Crystals NONE, Urine Bacteria NEGATIVE, Urine Casts NONE, Urine Mucus NEGATIVE, Urine Culture Indicated NO Microbiology 10/05/19 Throat Culture - Preliminary, Resulted No Beta Strep isolated Home Meds Active Reported Vitamin D3 (Cholecalciferol (Vitamin D3)) 50,000 Unit Capsule 50,000 Unit PO TH Amiodarone HCl 200 Mg Tablet 200 Mg PO DAILY Doxazosin Mesylate 8 Mg Tablet 4 Mg PO DAILY TAKES 1/2 (8MG) TABLET Lyrica (Pregabalin) 75 Mg Capsule 75 Mg PO BID PRN Tramadol HCl 50 Mg Tablet 50 Mg PO Q6H PRN Xylimelts (Xylitol) 550 Mg Ma.buc.tab 550 Mg MM QID PRN Lasix (Furosemide) 20 Mg Tablet 20 Mg PO DAILY PRN Potassium Chloride 10 Meq Tablet.er 10 Meq PO DAILY PRN Losartan-Hctz 100-25 mg Tab (Losartan/Hydrochlorothiazide) 1 Each Tablet 1 Tab PO DAILY Fluticasone Propionate 16 Gm [place].susp 1 [place] NS BID PRN Cod Liver Oil 1 Each Capsule 1 Cap PO DAILY [E-Poise] 1 Tab PO DAILY Humalog Kwikpen (Insulin Lispro) 100 Unit/1 Ml Insuln.pen SC TIDAC 1 UNIT OF INSULIN FOR EVERY 10GM OF CARBS Xarelto Tablet (Rivaroxaban) 20 Mg Tablet 15-20 Mg PO DAILY TAKES 20MG DAILY LONG HEMORRHOID BLEEDING IS NOT BAD, MAY SKIP A DOSE IF BLEEDING IS LARGE AMOUNTS. Voltaren (Diclofenac Sodium) 100 Gm Gel..gram. TP BID PRN Lantus Solostar (Insulin Glargine,Hum.rec.anlog) 100 Unit/1 Ml Insuln.pen 40-60 Units SC HS Allopurinol 300 Mg Tablet 300 Mg PO DAILY Zolpidem Tartrate 10 Mg Tablet 10 Mg PO HS Assessment/Pt Instructions take medications as prescribed. Participate in therapies. Discharge Planning: >30 minutes discharge planning Discharge Instructions Discharge Diet: No Restrictions Activity as Tolerated: Yes Consultations general surgery Cardiology Urology Pulmonology hospitalist Discharge Physical Examination Vital Signs Vital Signs Date Time Temp Pulse Resp B/P (MAP) Pulse Ox O2 Delivery O2 Flow Rate FiO2 10/06/19 11:05 36.0 10/06/19 09:00 OxyMask 2.00 10/06/19 08:00 82 20 136/81 (99) 90 General Appearance: No Apparent Distress, Obese HEENT: PERRL/EOMI, Pharynx Normal Respiratory: Lungs Clear, Normal Breath Sounds, No Respiratory Distress Cardiovascular: Regular Rate, Rhythm, No Murmur Gastrointestinal: Abnormal Bowel Sounds (hypoactive), Distended; No Guarding; Tenderness Extremity: Normal Inspection, Swelling (right lower extremity) Skin: Normal Color, Warm/Dry Neurologic/Psychiatric: Disoriented, Other (lethargic) Allergies: Coded Allergies: No Known Drug Allergies (Verified , 12/24/07) Discharge Summary Date of Admission Oct 01, 2019 at 06:04 Date of Discharge Discharge Date: Oct 06, 2019 Discharge Time: 13:24 Admission Diagnosis osteoarthritis Consults/Procedures Consulations general surgery Cardiology Urology Pulmonology Hospitalist Discharge Diagnosis MANOJ, Postoperative ileus, Osteoarthritis s/p TKA (1) MANOJ (acute kidney injury) Status: Acute (2) Postoperative ileus Status: Acute (3) Osteoarthritis of right knee Qualifiers: Qualified Codes: M17.11 - Unilateral primary osteoarthritis, right knee (4) Delirium Status: Acute (5) Pulmonary hypertension ALDA POTTER MD Oct 06, 2019 13:29
[2019-10-06] MEDS ORDERED: CALCIUM ACETATE 667 MG CAP (PHOSLO) PO SCH (17:00)
[2019-10-06] MEDS ORDERED: LACTULOSE SYRUP 10GM/15ML (ENULOSE) 30ML UDC PO SCH (21:00)
== END 2019-10-06 11:55 | DRG 470 ==
LOC: 4TH 10-01 06:04 → SURG 10-01 06:05 → 4TH 10-01 10:28
PROVIDERS: ADMIT Orthopaedic Surgery; ATTEND Orthopaedic Surgery
PROC: 3E0133Z Introduction of Anti-inflammatory into Subcutaneous Tissue, Percutaneous Approach (ICD-10-PCS; 2019-10-01)
PROC: 0SRC0J9 Replacement of Right Knee Joint with Synthetic Substitute, Cemented, Open Approach (ICD-10-PCS; principal; 2019-10-01 07:22)
DX: M17.11 Unilateral primary osteoarthritis, right knee (principal); M72.2 Plantar fascial fibromatosis; N17.9 Acute kidney failure, unspecified; K91.89 Other postprocedural complications and disorders of digestive system; K56.7 Ileus, unspecified; E87.2 Acidosis; E83.39 Other disorders of phosphorus metabolism; E11.9 Type 2 diabetes mellitus without complications; I11.9 Hypertensive heart disease without heart failure; I51.7 Cardiomegaly; I48.0 Paroxysmal atrial fibrillation; I48.92 Unspecified atrial flutter; I08.1 Rheumatic disorders of both mitral and tricuspid valves; E66.01 Morbid (severe) obesity due to excess calories; Z68.41 Body mass index [BMI] 40.0-44.9, adult; K59.00 Constipation, unspecified; R41.0 Disorientation, unspecified; I27.20 Pulmonary hypertension, unspecified; C67.9 Malignant neoplasm of bladder, unspecified; J32.9 Chronic sinusitis, unspecified; N40.1 Benign prostatic hyperplasia with lower urinary tract symptoms; R33.9 Retention of urine, unspecified; M10.9 Gout, unspecified; Z96.652 Presence of left artificial knee joint; Z79.4 Long term (current) use of insulin
CPT/HCPCS: 36415; 36600; 71045; 73560; 74018; 76770; 80048; 81000; 82565; 82805; 82962; 83735; 83880; 84100; 85014; 85018; 85027; 86850; 86900; 86901; 87430; 87804; 93306; 93970; 94640; 94664; 94760

== ENCOUNTER 2019-09-23 13:17 | Outpatient (CLI) | payer MEDICARE ==
[~2019-09-23] VITALS: Ht 177 cm; Wt 133.0 kg
[~2019-09-23 13:17] MED LIST changes: -COD1CAPS13 PO; +COD1CAPS6 PO
[2019-09-23 14:20] LABS: BASOPHILS % (AUTO) 1 % (0-10); EOSINOPHILS # (AUTO) 0.1 10^3/uL (0.0-0.3); EOSINOPHILS % (AUTO) 2 % (0-10); HEMATOCRIT 41 % (40-54); HEMOGLOBIN 13.6 G/DL (13.3-17.7); LYMPHOCYTES # (AUTO) 1.1 X 10^3 (1.0-4.0); LYMPHOCYTES % (AUTO) 35 % (12-44); MEAN CORPUSCULAR HEMOGLOBIN 32 PG (25-34); MEAN CORPUSCULAR HGB CONC 33 G/DL (32-36); MEAN CORPUSCULAR VOLUME 98 FL (80-99); MEAN PLATELET VOLUME 10.9 FL (7.4-10.4); MONOCYTES # (AUTO) 0.5 X 10^3 (0.0-1.0); MONOCYTES % (AUTO) 14 % (0-12); NEUTROPHILS # (AUTO) 1.6 X 10^3 (1.8-7.8); NEUTROPHILS % (AUTO) 49 % (42-75); PLATELET COUNT 93 10^3/uL (130-400); RED CELL DISTRIBUTION WIDTH 14.3 % (10.0-14.5); WHITE BLOOD COUNT 3.3 10^3/uL (4.3-11.0)
[2019-09-23 14:21] LABS: BILIRUBIN,URINE NEGATIVE (NEGATIVE); CLARITY,URINE CLEAR; COLOR,URINE YELLOW; GLUCOSE, URINE (UA) NEGATIVE (NEGATIVE); KETONES,URINE NEGATIVE (NEGATIVE); LEUKOCYTE ESTERASE ,URINE NEGATIVE (NEGATIVE); NITRITE,URINE NEGATIVE (NEGATIVE); PROTEIN,URINE NEGATIVE (NEGATIVE)
[2019-09-23 14:29] LABS: BACTERIA,URINE NEGATIVE /HPF; CALCIUM OXALATE CRYSTALS,UR FEW /LPF; HYALINE CASTS, URINE 0-2 /LPF; SQUAMOUS EPITHELIAL CELL,UR 0-2 /HPF
[2019-09-23 14:34] LABS: INR 1.1 (0.8-1.4); PROTHROMBIN TIME PATIENT 14.9 SEC (12.2-14.7)
[2019-09-23 14:41] LABS: ALBUMIN 3.7 GM/DL (3.2-4.5); BILIRUBIN,TOTAL 0.5 MG/DL (0.1-1.0); CALCIUM 8.8 MG/DL (8.5-10.1); CREATININE SERUM 1.19 MG/DL (0.60-1.30); POTASSIUM 3.7 MMOL/L (3.6-5.0); TOTAL PROTEIN 6.2 GM/DL (6.4-8.2)
[2019-09-23 15:04] LABS: ERYTHROCYTE SEDIMENTATION RATE 14 MM/HR (0-30)
== END 2019-09-23 16:01 | disposition home or self-care (01) ==
LOC: PREOP 13:17
PROVIDERS: ATTEND Orthopaedic Surgery
DX: Z01.812 Encounter for preprocedural laboratory examination (principal); M17.11 Unilateral primary osteoarthritis, right knee
CPT/HCPCS: 36415; 80053; 81000; 85025; 85610; 85652; 86850; 86900; 86901; 87081